=== PATIENT | male | born 1935 | race Caucasian/White ===

== ENCOUNTER 2016-09-26 09:56 | Inpatient (IN) | payer OTHER ==
[~2016-09-26] VITALS: Ht 172.7 cm; Wt 100.0 kg
[2016-09-26] VITALS (14 sets, daily range): BP systolic 106–158; BP diastolic 48–89
[~2016-09-26 09:56] MED LIST: AMIO200T2 PO; APIX5TAB PO; ASPI81TA2 PO; ASPI81TA44 PO; CARV12.52 PO; CARV3.12 PO; CLOP75TA PO; FINA5TAB4 PO; LISI-338 PO; LISI10TA2 PO; MELO-150 PO; MULT-121 PO; OMEG-113 PO; PRAV40TA2 PO; TAMS0.4C2 PO; TRAM50TA PO
--- NOTE | 2016-09-26 12:26 | EKG ---
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 ABNORMAL LEFT AXIS DEVIATION QRS(T) CONTOUR ABNORMALITY CONSISTENT WITH ANTERIOR INFARCT AGE UNDETERMINED CONSISTENT WITH INFERIOR INFARCT PROBABLY OLD ABNORMAL ECG RI6.01 Electronically Signed On 10-03-2016 10:32:01 DRYING ROOM OPERATOR by Sumanth Parra
[2016-09-26] MEDS ORDERED: CARV6.252 PO (12:53)
[2016-09-26 12:55] LABS: BASO # 0.1 x10^3/uL (0.0-0.2); BASO % 1 % (0-3); EOS % 1 % (0-3); LYMPH # 2.1 x10^3/uL (1.0-4.8); LYMPH % 18 % (24-48); MEAN CORPUSCULAR HEMOGLOBIN 31 pg (25-35); MEAN CORPUSCULAR HGB CONC 31 g/dL (31-37); MEAN CORPUSCULAR VOLUME 100 fL (79-100); MONO % 8 % (0-9); NEUT % 73 % (31-73); PLATELET COUNT 281 x10^3/uL (140-400); RED BLOOD COUNT 1.97 x10^6/uL (4.30-5.70); RED CELL DISTRIBUTION WIDTH 17.1 % (11.5-14.5); WHITE BLOOD COUNT 11.6 x10^3/uL (4.0-11.0)
[2016-09-26 13:08] LABS: ALBUMIN 3.1 g/dL (3.4-5.0); ALBUMIN/GLOBULIN RATIO 0.9 (1.0-1.7); CALCIUM 8.9 mg/dL (8.5-10.1); CREATININE 1.5 mg/dL (0.7-1.3); GFR 44.9; POTASSIUM 4.5 mmol/L (3.5-5.1); TOTAL BILIRUBIN 0.5 mg/dL (0.2-1.0); TOTAL PROTEIN 6.5 g/dL (6.4-8.2)
[2016-09-26 13:11] LABS: HEMATOCRIT 19.7 % (39.0-53.0)
[2016-09-26] MEDS ORDERED: OMEP40CA5 PO (13:12)
[2016-09-26] MEDS ORDERED: LEVO50TA5 PO (13:12)
--- NOTE | 2016-09-26 13:44 | HP ---
ADMIT DATE: 09/26/2016 CHIEF COMPLAINT: Anemia and weakness. HISTORY OF PRESENT ILLNESS: An 81-year-old white male with history of coronary artery disease and atrial fibrillation was seen in the office 5 days prior to admission with ongoing weakness over several weeks. He was found to be pale and lab record revealed moderately severe anemia with a hemoglobin around 7.2 and TSH elevated at 18, both of which were new. Aspirin and Eliquis were stopped, lisinopril was stopped and he was started on iron and omeprazole. He was seen in the office on 09/24/2016 with hemoglobin of 6.6, but he declined admission at that time and was seen again on the day of admission with hemoglobin about the same and decided to come to the hospital for transfusion at this point. He has seen some melena over the last 2-3 weeks, but no overt hematochezia, dysphagia, weight loss, vomiting, abdominal pain or other complaints. PAST MEDICAL HISTORY: He had heart stents after [place] in 2012 and he has been on his current meds for an unknown period of time. MEDICATIONS: He takes amiodarone for chronic atrial fibrillation and sees Dr. Brink. PAST SURGICAL HISTORY: Surgically he has had shoulder surgery, appendectomy and tonsillectomy. ALLERGIES: He has no drug allergies. SOCIAL HISTORY: Nonsmoker, nondrinker, not physically active given his age and he is . FAMILY HISTORY: Unremarkable. REVIEW OF SYSTEMS: No other notable complaints. OBJECTIVE: ENT: Moderate pallor, sclerae are clear. TMs and pharynx unremarkable. NECK: Revealed no carotid bruits, nodes, thyroid enlargement or masses. LUNGS: Bibasilar crackles, no wheezes. CARDIOVASCULAR: Regular rate, rate is about 80-90 systolic flow murmur is heard. ABDOMEN: Soft, benign and nontender. EXTREMITIES: No edema, nailbeds and palms pale. Pedal pulses diminished ____ lower blood pressure. ASSESSMENT: 1. Anemia, likely secondary to occult gastrointestinal bleeding worsened by aspirin and Eliquis. He had a negative colonoscopy in 2013, an upper source is likely. 2. Atrial fibrillation, chronic, rate controlled. 3. New diagnosis of hypothyroidism, perhaps related to amiodarone use. 4. Chronic kidney disease 3, stable. PLAN: As ordered. VERENICE BLOOD MD DR: Dmitriy JOB#: [id number] / [id number]
--- NOTE | 2016-09-26 13:51 | PDOC2 ---
GI CONSULT Reason For Consult: Anemia HPI: HPI: Seen w/ Dr. Cardenas. 81 y/o male directly admitted by Dr. Hare. Reports h/ o "feeling bad" w/ dizziness and pallor since 07/30/16. Denies hematochezia but says stools have been firm and black. H/o CAD w/ stents, A Fib on ASA, Plavix, Eliquis. Meds also list omeprazole 40mg QD. Recalls previous colonoscopy 5-6 years ago, no previous EGD. Hgb 6. PMH: PMH: CAD s/p stents, CO/ischemic cardiomyopathy, HTN, HLD, A Fib, CHF, BPH, hypothyroidism FH: Family History: Cancer (lung) Social History: Drugs: None ROS: GEN: Denies fevers, chills, sweats HEENT: Denies blurred vision, sore throat CV: Denies chest pain RESP: Denies shortness of air, cough GI: Per HPI : Denies hematuria, dysuria ENDO: Denies weight changes NEURO: +dizziness MSK: Denies weakness, joint pain/swelling SKIN: +pale VItals: Vitals: Vital Signs Date Time Temp Pulse Resp B/P Pulse Ox O2 Delivery O2 Flow Rate FiO2 09/26/16 11:32 96.8 68 18 112/76 98 Room Air 96.8 Labs: Labs: Laboratory Tests Test 09/26/16 12:25 09/26/16 12:30 White Blood Count 11.6x10^3/uL (4.0-11.0) Red Blood Count 1.97x10^6/uL (4.30-5.70) Hemoglobin 6.0g/dL (13.0-17.5) Hematocrit 19.7% (39.0-53.0) Mean Corpuscular Volume 100fL (79-100) Mean Corpuscular Hemoglobin 31pg (25-35) Mean Corpuscular Hemoglobin Concent 31g/dL (31-37) Red Cell Distribution Width 17.1% (11.5-14.5) Platelet Count 281x10^3/uL (140-400) Neutrophils (%) (Auto) 73% (31-73) Lymphocytes (%) (Auto) 18% (24-48) Monocytes (%) (Auto) 8% (0-9) Eosinophils (%) (Auto) 1% (0-3) Basophils (%) (Auto) 1% (0-3) Neutrophils # (Auto) 8.5x10^3uL (1.8-7.7) Lymphocytes # (Auto) 2.1x10^3/uL (1.0-4.8) Monocytes # (Auto) 0.9x10^3/uL (0.0-1.1) Eosinophils # (Auto) 0.1x10^3/uL (0.0-0.7) Basophils # (Auto) 0.1x10^3/uL (0.0-0.2) Sodium Level 141mmol/L (136-145) Potassium Level 4.5mmol/L (3.5-5.1) Chloride Level 104mmol/L (98-107) Carbon Dioxide Level 26mmol/L (21-32) Anion Gap 11 (6-14) Blood Urea Nitrogen 30mg/dL (8-26) Creatinine 1.5mg/dL (0.7-1.3) Estimated GFR (Cockcroft-Gault) 44.9 BUN/Creatinine Ratio 20 (6-20) Glucose Level 130mg/dL (70-99) Calcium Level 8.9mg/dL (8.5-10.1) Total Bilirubin 0.5mg/dL (0.2-1.0) Aspartate Amino Transf (AST/SGOT) 21U/L (15-37) Alanine Aminotransferase (ALT/SGPT) 24U/L (16-63) Alkaline Phosphatase 37U/L (46-116) Total Protein 6.5g/dL (6.4-8.2) Albumin 3.1g/dL (3.4-5.0) Albumin/Globulin Ratio 0.9 (1.0-1.7) Allergies: Coded Allergies: No Known Drug Allergies (Unverified , 09/26/16) Medications: Please see EMR. Imaging: Imaging: - PE: GEN: NAD, pale HEENT: Atraumatic, PERRL LUNGS: clear anteriorly HEART: S1S2 ABD: NABS, S/ND/NT EXTREMITY: No edema SKIN: No rashes, no jaundice NEURO/PSYCH: A & O 3 A/P: A/P: Anemia -significant cardiac history on blood thinning meds -has felt dizzy, family notes looks pale -having formed black stools -directly admitted today, Hgb 6, transfusion planned CAD, A Fib CRC screen -reports previous colonoscopy 5-6 years ago -- Continue PPI. Okay for diet today but will tentatively plan for EGD and colonoscopy on 09/28 after prep tomorrow. LONG CASTANEDA Sep 26, 2016 13:51
[2016-09-26] MEDS: TRAMADOL 50 MG TABLET. PO SCH ×2 (15:02→21:07)
[2016-09-26] MEDS: CARVEDILOL 6.25 MG TABLET PO SCH (17:00)
--- NOTE | 2016-09-26 20:06 | PDOC2 ---
CONSULT Date of Consult Date of Consult DATE: 09/26/16 TIME: 19:58 Reason for Consult Reason for Consult: Atrial fibrillation Referring Physician Referring Physician: Dr. Hare Identification/Chief Complaint Chief Complaint Anemia History of Present Illness Reason for Visit: This patient is an 81-year-old gentleman that I have seen in the past. He has a known history of coronary artery disease and stents as well as cardiac arrhythmias with chronic atrial fibrillation. He is on anticoagulation with Elliquis. The patient's rhythm has been controlled with amiodarone. He has been feeling very tired fatigue and went to see Dr. Hare and labs were done and he was found to be anemic and to have an elevated TSH of 18. The patient denies any acute bleeding, denies any chest pains, denies any palpitations. Feels weak and tired and becomes short of breath easily. Past Medical History Cardiovascular: AFIB, CAD, HTN, NC, Hyperlipidemia GI: Diverticulosis Social History Drugs: None Current Medications Current Medications Current Medications Amiodarone HCl (Cordarone) 200 mg DAILY PO ; Start 09/27/16 at 09:00 Carvedilol (Coreg) 6.25 mg BIDWMEALS PO ; Start 09/26/16 at 17:00 Finasteride (Proscar) 5 mg DAILY PO ; Start 09/27/16 at 09:00 Tamsulosin HCl (Flomax) 0.4 mg HS PO ; Start 09/26/16 at 21:00 Tramadol HCl (Ultram) 50 mg TID PO Last administered on 09/26/16t 15:02; Start 09/26/16 at 14:00 Multivitamins/ Calcium (Thera M Plus) 1 tab DAILY PO ; Start 09/27/16 at 09:00 Fish Oil (Fish Oil) 1,000 mg DAILY PO ; Start 09/27/16 at 09:00 Atorvastatin Calcium (Lipitor) 10 mg QHS PO ; Start 09/26/16 at 21:00 Levothyroxine Sodium (Synthroid) 50 mcg DAILY07 PO ; Start 09/27/16 at 07:00 Pantoprazole Sodium (Protonix) 40 mg DAILYAC PO ; Start 09/27/16 at 07:30 Active Scripts Active Clopidogrel (Clopidogrel Bisulfate) 75 Mg Tablet 75 Mg PO DAILYWBKFT 30 Days Carvedilol 12.5 Mg Tablet 12.5 Mg PO BIDWMEALS 30 Days Reported Levothyroxine Sodium 50 Mcg Tablet 1 Tab PO DAILY Omeprazole 40 Mg Capsule. 1 Cap PO DAILY Carvedilol 6.25 Mg Tablet 1 Tab PO BID Fish Oil 1,200 mg Softgel ([place]-3S/Dha/Epa/Fish Oil) 1 Each Capsule 1 Each PO DAILY Eliquis (Apixaban) 5 Mg Tablet 5 Mg PO BID Amiodarone Hcl 200 Mg Tablet 1 Tab PO DAILY Lisinopril 5 Mg Tablet 1 Tab PO DAILY Multiple Vitamins (Multivitamin) 1 Each Tablet 1 Each PO DAILY Tamsulosin Hcl 0.4 Mg Cap.er.24h 1 Cap PO HS Tramadol Hcl 50 Mg Tablet 1 Tab PO TID Finasteride 5 Mg Tablet 1 Tab PO DAILY Pravastatin Sodium 40 Mg Tablet 1 Tab PO QHS Children's Aspirin (Aspirin) 81 Mg Tab.chew 81 Mg PO Allergies Allergies: Coded Allergies: No Known Drug Allergies (Unverified , 09/26/16) Physical Exam Physical Exam The patient was not in acute distress at the time of the examination. He was receiving a unit of blood at this time. H EENT pupils are reactive. Oral mucosa well-hydrated. Neck is supple no JVD. Lungs are clear. Heart irregular, S1, S2, 1 to 2/6 systolic murmur. Abdomen is soft bowel sounds are present. Extremities no edema. Vitals VITALS Vital Signs Date Time Temp Pulse Resp B/P Pulse Ox O2 Delivery O2 Flow Rate FiO2 09/26/16 19:02 97.9 70 20 118/65 97.9 09/26/16 19:00 97 Room Air Labs Labs Laboratory Tests Test 09/26/16 12:25 09/26/16 12:30 White Blood Count 11.6x10^3/uL (4.0-11.0) Red Blood Count 1.97x10^6/uL (4.30-5.70) Hemoglobin 6.0g/dL (13.0-17.5) Hematocrit 19.7% (39.0-53.0) Mean Corpuscular Volume 100fL (79-100) Mean Corpuscular Hemoglobin 31pg (25-35) Mean Corpuscular Hemoglobin Concent 31g/dL (31-37) Red Cell Distribution Width 17.1% (11.5-14.5) Platelet Count 281x10^3/uL (140-400) Neutrophils (%) (Auto) 73% (31-73) Lymphocytes (%) (Auto) 18% (24-48) Monocytes (%) (Auto) 8% (0-9) Eosinophils (%) (Auto) 1% (0-3) Basophils (%) (Auto) 1% (0-3) Neutrophils # (Auto) 8.5x10^3uL (1.8-7.7) Lymphocytes # (Auto) 2.1x10^3/uL (1.0-4.8) Monocytes # (Auto) 0.9x10^3/uL (0.0-1.1) Eosinophils # (Auto) 0.1x10^3/uL (0.0-0.7) Basophils # (Auto) 0.1x10^3/uL (0.0-0.2) Sodium Level 141mmol/L (136-145) Potassium Level 4.5mmol/L (3.5-5.1) Chloride Level 104mmol/L (98-107) Carbon Dioxide Level 26mmol/L (21-32) Anion Gap 11 (6-14) Blood Urea Nitrogen 30mg/dL (8-26) Creatinine 1.5mg/dL (0.7-1.3) Estimated GFR (Cockcroft-Gault) 44.9 BUN/Creatinine Ratio 20 (6-20) Glucose Level 130mg/dL (70-99) Calcium Level 8.9mg/dL (8.5-10.1) Total Bilirubin 0.5mg/dL (0.2-1.0) Aspartate Amino Transf (AST/SGOT) 21U/L (15-37) Alanine Aminotransferase (ALT/SGPT) 24U/L (16-63) Alkaline Phosphatase 37U/L (46-116) Total Protein 6.5g/dL (6.4-8.2) Albumin 3.1g/dL (3.4-5.0) Albumin/Globulin Ratio 0.9 (1.0-1.7) Laboratory Tests Test 09/26/16 12:25 09/26/16 12:30 White Blood Count 11.6x10^3/uL (4.0-11.0) Red Blood Count 1.97x10^6/uL (4.30-5.70) Hemoglobin 6.0g/dL (13.0-17.5) Hematocrit 19.7% (39.0-53.0) Mean Corpuscular Volume 100fL (79-100) Mean Corpuscular Hemoglobin 31pg (25-35) Mean Corpuscular Hemoglobin Concent 31g/dL (31-37) Red Cell Distribution Width 17.1% (11.5-14.5) Platelet Count 281x10^3/uL (140-400) Neutrophils (%) (Auto) 73% (31-73) Lymphocytes (%) (Auto) 18% (24-48) Monocytes (%) (Auto) 8% (0-9) Eosinophils (%) (Auto) 1% (0-3) Basophils (%) (Auto) 1% (0-3) Neutrophils # (Auto) 8.5x10^3uL (1.8-7.7) Lymphocytes # (Auto) 2.1x10^3/uL (1.0-4.8) Monocytes # (Auto) 0.9x10^3/uL (0.0-1.1) Eosinophils # (Auto) 0.1x10^3/uL (0.0-0.7) Basophils # (Auto) 0.1x10^3/uL (0.0-0.2) Sodium Level 141mmol/L (136-145) Potassium Level 4.5mmol/L (3.5-5.1) Chloride Level 104mmol/L (98-107) Carbon Dioxide Level 26mmol/L (21-32) Anion Gap 11 (6-14) Blood Urea Nitrogen 30mg/dL (8-26) Creatinine 1.5mg/dL (0.7-1.3) Estimated GFR (Cockcroft-Gault) 44.9 BUN/Creatinine Ratio 20 (6-20) Glucose Level 130mg/dL (70-99) Calcium Level 8.9mg/dL (8.5-10.1) Total Bilirubin 0.5mg/dL (0.2-1.0) Aspartate Amino Transf (AST/SGOT) 21U/L (15-37) Alanine Aminotransferase (ALT/SGPT) 24U/L (16-63) Alkaline Phosphatase 37U/L (46-116) Total Protein 6.5g/dL (6.4-8.2) Albumin 3.1g/dL (3.4-5.0) Albumin/Globulin Ratio 0.9 (1.0-1.7) Assessment/Plan Assessment/Plan This patient comes in with symptoms that are probably secondary to the anemia and may be having a GI bleed. The TSH is elevated and he is on amiodarone therefore at this point I would like to DC the amiodarone and if there are issues with regards to the heart rhythm then we would use something different trying to avoid problems with the thyroid and the amiodarone. Thank you very much for asking me to participate in the care of this patient CARLOS ALBERTO MONTILLA MD Sep 26, 2016 20:06
[2016-09-26] MEDS: ATORVASTATIN CALCIUM 10 MG TABLET. PO SCH (21:06)
[2016-09-26] MEDS: TAMSULOSIN 0.4 MG CAP.ER.24H. PO SCH (21:07)
[2016-09-27 03:11] VITALS: BP 121/69
[2016-09-27 05:13] LABS: BASO # 0.1 x10^3/uL (0.0-0.2); BASO % 1 % (0-3); EOS % 1 % (0-3); HEMATOCRIT 24.4 % (39.0-53.0); HEMOGLOBIN 7.8 g/dL (13.0-17.5); LYMPH % 16 % (24-48); MEAN CORPUSCULAR HEMOGLOBIN 31 pg (25-35); MEAN CORPUSCULAR HGB CONC 32 g/dL (31-37); MEAN CORPUSCULAR VOLUME 96 fL (79-100); MONO % 10 % (0-9); NEUT % 73 % (31-73); PLATELET COUNT 233 x10^3/uL (140-400); RED BLOOD COUNT 2.55 x10^6/uL (4.30-5.70); RED CELL DISTRIBUTION WIDTH 15.8 % (11.5-14.5); WHITE BLOOD COUNT 12.4 x10^3/uL (4.0-11.0)
[2016-09-27] MEDS: LEVOTHYROXINE 50 MCG TABLET PO SCH (06:13)
[2016-09-27 07:00] VITALS: BP 125/70
--- NOTE | 2016-09-27 08:14 | PDOC ---
Provider Note Provider Note feels better w/ hb up 7.8- exam same,,rest of lab ok- will resume lisinopril re CM, follow hb bid, more prbcs if lower, panendo 3/- off amio now re thyroid status , TSH later- continue omepp pending VERENICE Javier MD Sep 27, 2016 08:14
[2016-09-27] MEDS ORDERED: AMIODARONE HCL 200 MG TABLET PO SCH (09:00)
--- NOTE | 2016-09-27 10:02 | PDOC ---
Subjective: Subjective: Feeling better after transfusion but was up urinating a lot during the night. Objective: Vital Signs: Vital Signs Date Time Temp Pulse Resp B/P Pulse Ox O2 Delivery O2 Flow Rate FiO2 09/27/16 09:10 Room Air 09/27/16 07:00 98.6 75 20 125/70 97 98.6 Labs: Laboratory Tests Test 09/26/16 12:25 09/26/16 12:30 09/27/16 04:30 White Blood Count 11.6x10^3/uL 12.4x10^3/uL Red Blood Count 1.97x10^6/uL 2.55x10^6/uL Hemoglobin 6.0g/dL 7.8g/dL Hematocrit 19.7% 24.4% Mean Corpuscular Volume 100fL 96fL Mean Corpuscular Hemoglobin 31pg 31pg Mean Corpuscular Hemoglobin Concent 31g/dL 32g/dL Red Cell Distribution Width 17.1% 15.8% Platelet Count 281x10^3/uL 233x10^3/uL Neutrophils (%) (Auto) 73% 73% Lymphocytes (%) (Auto) 18% 16% Monocytes (%) (Auto) 8% 10% Eosinophils (%) (Auto) 1% 1% Basophils (%) (Auto) 1% 1% Neutrophils # (Auto) 8.5x10^3uL 9.0x10^3uL Lymphocytes # (Auto) 2.1x10^3/uL 2.0x10^3/uL Monocytes # (Auto) 0.9x10^3/uL 1.2x10^3/uL Eosinophils # (Auto) 0.1x10^3/uL 0.1x10^3/uL Basophils # (Auto) 0.1x10^3/uL 0.1x10^3/uL Sodium Level 141mmol/L Potassium Level 4.5mmol/L Chloride Level 104mmol/L Carbon Dioxide Level 26mmol/L Anion Gap 11 Blood Urea Nitrogen 30mg/dL Creatinine 1.5mg/dL Estimated GFR (Cockcroft-Gault) 44.9 BUN/Creatinine Ratio 20 Glucose Level 130mg/dL Calcium Level 8.9mg/dL Total Bilirubin 0.5mg/dL Aspartate Amino Transf (AST/SGOT) 21U/L Alanine Aminotransferase (ALT/SGPT) 24U/L Alkaline Phosphatase 37U/L Total Protein 6.5g/dL Albumin 3.1g/dL Albumin/Globulin Ratio 0.9 Thyroid Stimulating Hormone (TSH) 13.090uIU/mL Free Triiodothyronine (T3) pg/mL 1.56pg/mL PE: GEN: NAD LUNGS: clear anteriorly HEART: RRR ABD: NABS, S/ND/NT NEURO/PSYCH: A & O 3 A/P: Anemia -h/o CAD, A Fib previously on blood thinners -Hgb 7.8 from6 s/p transfusions -previous colonoscopy 5-6 years ago -- Proceed w/ EGG and colonoscopy tomorrow a.m. after prep. Clear liquids today, NPO at midnight. LONG CASTANEDA Sep 27, 2016 10:02
[2016-09-27] MEDS: PANTOPRAZOLE 40 MG TABLET. PO SCH (10:06)
[2016-09-27] MEDS: OMEGA-3 FATTY ACIDS/FISH OIL 1,000 MG CAPSULE. PO SCH (10:06)
[2016-09-27] MEDS: MULTIVITAMIN with MINERAL TABLET. PO SCH (10:06)
[2016-09-27] MEDS: FINASTERIDE 5 MG TABLET PO SCH (10:06)
[2016-09-27] MEDS: TRAMADOL 50 MG TABLET. PO SCH ×3 (10:07→20:32)
[2016-09-27] MEDS: LISINOPRIL 10 MG TABLET PO SCH (10:09)
[2016-09-27] MEDS: CARVEDILOL 6.25 MG TABLET PO SCH ×2 (10:10→17:45)
[2016-09-27] MEDS ORDERED: PEG 3350/NA SULF,BICARB,CL/KCL 4,000 ML SOLUTION. PO ONE (10:30)
[2016-09-27 10:51] VITALS: BP 107/60
--- NOTE | 2016-09-27 10:58 | PDOC ---
PROGRESS NOTES Subjective Subjective The patient is feeling better today. He received 2 units of blood yesterday and says he is now less tired and less short of breath. He is also denying chest pain or other cardiac-related complaints. Objective Objective Vital Signs Date Time Temp Pulse Resp B/P Pulse Ox O2 Delivery O2 Flow Rate FiO2 09/27/16 10:10 71 109/60 09/27/16 10:07 20 97 Room Air 09/27/16 07:00 98.6 98.6 Intake and Output 09/27/16 07:00 Intake Total 1935 ml Balance 1935 ml Intake Oral 900 ml Blood Product IV Normal Saline Flush 1035 ml # Voids 2 Physical Exam Physical Exam No change from previous cardiovascular exam. Lungs: Clear to auscultation Assessment Assessment Problems Medical Problems: (1) Anemia Status: Acute Plan Plan of Care Patient will undergo colonoscopy and EGD later today. Recommend continuing to hold Amiodarone and hold Eliquis. No cardiac complaints at this time, but will continue to follow in care, especially for management of chronic A-Fib. Comment Review of Relevant I have reviewed the following items joana (where applicable) has been applied. Labs Laboratory Tests Test 09/26/16 12:25 09/26/16 12:30 09/27/16 04:30 White Blood Count 11.6x10^3/uL (4.0-11.0) 12.4x10^3/uL (4.0-11.0) Red Blood Count 1.97x10^6/uL (4.30-5.70) 2.55x10^6/uL (4.30-5.70) Hemoglobin 6.0g/dL (13.0-17.5) 7.8g/dL (13.0-17.5) Hematocrit 19.7% (39.0-53.0) 24.4% (39.0-53.0) Mean Corpuscular Volume 100fL (79-100) 96fL (79-100) Mean Corpuscular Hemoglobin 31pg (25-35) 31pg (25-35) Mean Corpuscular Hemoglobin Concent 31g/dL (31-37) 32g/dL (31-37) Red Cell Distribution Width 17.1% (11.5-14.5) 15.8% (11.5-14.5) Platelet Count 281x10^3/uL (140-400) 233x10^3/uL (140-400) Neutrophils (%) (Auto) 73% (31-73) 73% (31-73) Lymphocytes (%) (Auto) 18% (24-48) 16% (24-48) Monocytes (%) (Auto) 8% (0-9) 10% (0-9) Eosinophils (%) (Auto) 1% (0-3) 1% (0-3) Basophils (%) (Auto) 1% (0-3) 1% (0-3) Neutrophils # (Auto) 8.5x10^3uL (1.8-7.7) 9.0x10^3uL (1.8-7.7) Lymphocytes # (Auto) 2.1x10^3/uL (1.0-4.8) 2.0x10^3/uL (1.0-4.8) Monocytes # (Auto) 0.9x10^3/uL (0.0-1.1) 1.2x10^3/uL (0.0-1.1) Eosinophils # (Auto) 0.1x10^3/uL (0.0-0.7) 0.1x10^3/uL (0.0-0.7) Basophils # (Auto) 0.1x10^3/uL (0.0-0.2) 0.1x10^3/uL (0.0-0.2) Sodium Level 141mmol/L (136-145) Potassium Level 4.5mmol/L (3.5-5.1) Chloride Level 104mmol/L (98-107) Carbon Dioxide Level 26mmol/L (21-32) Anion Gap 11 (6-14) Blood Urea Nitrogen 30mg/dL (8-26) Creatinine 1.5mg/dL (0.7-1.3) Estimated GFR (Cockcroft-Gault) 44.9 BUN/Creatinine Ratio 20 (6-20) Glucose Level 130mg/dL (70-99) Calcium Level 8.9mg/dL (8.5-10.1) Total Bilirubin 0.5mg/dL (0.2-1.0) Aspartate Amino Transf (AST/SGOT) 21U/L (15-37) Alanine Aminotransferase (ALT/SGPT) 24U/L (16-63) Alkaline Phosphatase 37U/L (46-116) Total Protein 6.5g/dL (6.4-8.2) Albumin 3.1g/dL (3.4-5.0) Albumin/Globulin Ratio 0.9 (1.0-1.7) Thyroid Stimulating Hormone (TSH) 13.090uIU/mL (0.358-3.74) Free Triiodothyronine (T3) pg/mL 1.56pg/mL (2.18-3.98) Laboratory Tests Test 09/26/16 12:25 09/26/16 12:30 09/27/16 04:30 White Blood Count 11.6x10^3/uL (4.0-11.0) 12.4x10^3/uL (4.0-11.0) Red Blood Count 1.97x10^6/uL (4.30-5.70) 2.55x10^6/uL (4.30-5.70) Hemoglobin 6.0g/dL (13.0-17.5) 7.8g/dL (13.0-17.5) Hematocrit 19.7% (39.0-53.0) 24.4% (39.0-53.0) Mean Corpuscular Volume 100fL (79-100) 96fL (79-100) Mean Corpuscular Hemoglobin 31pg (25-35) 31pg (25-35) Mean Corpuscular Hemoglobin Concent 31g/dL (31-37) 32g/dL (31-37) Red Cell Distribution Width 17.1% (11.5-14.5) 15.8% (11.5-14.5) Platelet Count 281x10^3/uL (140-400) 233x10^3/uL (140-400) Neutrophils (%) (Auto) 73% (31-73) 73% (31-73) Lymphocytes (%) (Auto) 18% (24-48) 16% (24-48) Monocytes (%) (Auto) 8% (0-9) 10% (0-9) Eosinophils (%) (Auto) 1% (0-3) 1% (0-3) Basophils (%) (Auto) 1% (0-3) 1% (0-3) Neutrophils # (Auto) 8.5x10^3uL (1.8-7.7) 9.0x10^3uL (1.8-7.7) Lymphocytes # (Auto) 2.1x10^3/uL (1.0-4.8) 2.0x10^3/uL (1.0-4.8) Monocytes # (Auto) 0.9x10^3/uL (0.0-1.1) 1.2x10^3/uL (0.0-1.1) Eosinophils # (Auto) 0.1x10^3/uL (0.0-0.7) 0.1x10^3/uL (0.0-0.7) Basophils # (Auto) 0.1x10^3/uL (0.0-0.2) 0.1x10^3/uL (0.0-0.2) Sodium Level 141mmol/L (136-145) Potassium Level 4.5mmol/L (3.5-5.1) Chloride Level 104mmol/L (98-107) Carbon Dioxide Level 26mmol/L (21-32) Anion Gap 11 (6-14) Blood Urea Nitrogen 30mg/dL (8-26) Creatinine 1.5mg/dL (0.7-1.3) Estimated GFR (Cockcroft-Gault) 44.9 BUN/Creatinine Ratio 20 (6-20) Glucose Level 130mg/dL (70-99) Calcium Level 8.9mg/dL (8.5-10.1) Total Bilirubin 0.5mg/dL (0.2-1.0) Aspartate Amino Transf (AST/SGOT) 21U/L (15-37) Alanine Aminotransferase (ALT/SGPT) 24U/L (16-63) Alkaline Phosphatase 37U/L (46-116) Total Protein 6.5g/dL (6.4-8.2) Albumin 3.1g/dL (3.4-5.0) Albumin/Globulin Ratio 0.9 (1.0-1.7) Thyroid Stimulating Hormone (TSH) 13.090uIU/mL (0.358-3.74) Free Triiodothyronine (T3) pg/mL 1.56pg/mL (2.18-3.98) Medications Current Medications Amiodarone HCl (Cordarone) 200 mg DAILY PO ; Start 09/27/16 at 09:00; Stop 09/27 at 09:00; Status DC Carvedilol (Coreg) 6.25 mg BIDWMEALS PO Last administered on 09/27/16 10:10; Start 09/26/16 at 17:00 Finasteride (Proscar) 5 mg DAILY PO Last administered on 09/27/16 10:06; Start 09/27/16 at 09:00 Tamsulosin HCl (Flomax) 0.4 mg HS PO Last administered on 09/26/16 21:07; Start 09/26/16 at 21:00 Tramadol HCl (Ultram) 50 mg TID PO Last administered on 09/27/16 10:07; Start 09/26/16 at 14:00 Multivitamins/ Calcium (Thera M Plus) 1 tab DAILY PO Last administered on 10:06; Start 09/27/16 at 09:00 Fish Oil (Fish Oil) 1,000 mg DAILY PO Last administered on 09/27/16 10:06; Start 09/27/16 at 09:00 Atorvastatin Calcium (Lipitor) 10 mg QHS PO Last administered on 09/26/16 21: 06; Start 09/26/16 at 21:00 Levothyroxine Sodium (Synthroid) 50 mcg DAILY07 PO Last administered on 06:13; Start 09/27/16 at 07:00 Pantoprazole Sodium (Protonix) 40 mg DAILYAC PO Last administered on 09/27/16 10:06; Start 09/27/16 at 07:30 Lisinopril (Prinivil) 10 mg DAILY PO Last administered on 09/27/16 10:09; Start 09/27/16 at 09:00 Sodium Cl/Sod Bicarb/Potass Cl/ PEG (Golytely) 4,000 ml 1X ONCE PO ; Start at 10:30; Stop 09/27/16 at 10:31; Status DC Active Scripts Active Clopidogrel (Clopidogrel Bisulfate) 75 Mg Tablet 75 Mg PO DAILYWBKFT 30 Days Carvedilol 12.5 Mg Tablet 12.5 Mg PO BIDWMEALS 30 Days Reported Levothyroxine Sodium 50 Mcg Tablet 1 Tab PO DAILY Omeprazole 40 Mg Capsule. 1 Cap PO DAILY Carvedilol 6.25 Mg Tablet 1 Tab PO BID Fish Oil 1,200 mg Softgel (Florien-3S/Dha/Epa/Fish Oil) 1 Each Capsule 1 Each PO DAILY Eliquis (Apixaban) 5 Mg Tablet 5 Mg PO BID Amiodarone Hcl 200 Mg Tablet 1 Tab PO DAILY Lisinopril 5 Mg Tablet 1 Tab PO DAILY Multiple Vitamins (Multivitamin) 1 Each Tablet 1 Each PO DAILY Tamsulosin Hcl 0.4 Mg Cap.er.24h 1 Cap PO HS Tramadol Hcl 50 Mg Tablet 1 Tab PO TID Finasteride 5 Mg Tablet 1 Tab PO DAILY Pravastatin Sodium 40 Mg Tablet 1 Tab PO QHS Children's Aspirin (Aspirin) 81 Mg Tab.chew 81 Mg PO Vitals/I & O Vital Sign - Last 24 Hours 09/26/16 09/26/16 09/26/16 09/26/16 11:32 15:00 15:02 16:10 Temp 96.8 97.7 98.6 96.8 97.7 98.6 Pulse 68 65 66 Resp 18 18 B/P 112/76 113/59 106/48 Pulse Ox 98 97 98 O2 Delivery Room Air Room Air Room Air 09/26/16 09/26/16 09/26/16 09/26/16 16:38 17:25 18:25 19:00 Temp 98.1 98.1 97.9 98.1 98.1 98.1 97.9 98.1 Pulse 65 72 68 71 Resp 18 18 B/P 122/62 139/71 126/70 112/62 Pulse Ox 97 O2 Delivery Room Air 09/26/16 09/26/16 09/26/16 09/26/16 19:02 20:00 20:05 20:30 Temp 97.9 97.9 97.9 97.9 97.9 97.9 Pulse 70 70 73 Resp 20 18 18 B/P 118/65 118/65 129/69 O2 Delivery Room Air 09/26/16 09/26/16 09/26/16 09/26/16 20:45 21:07 21:45 22:07 Temp 98.2 98.0 98.2 98.0 Pulse 74 70 Resp 18 18 18 B/P 118/64 108/64 Pulse Ox 97 97 O2 Delivery Room Air 09/26/16 09/26/16 09/27/16 09/27/16 22:31 22:51 03:11 07:00 Temp 97.7 98.0 98.1 98.6 97.7 98.0 98.1 98.6 Pulse 70 74 70 75 Resp 18 18 18 20 B/P 158/89 128/74 121/69 125/70 Pulse Ox 97 95 97 O2 Delivery Room Air Room Air Room Air 09/27/16 09/27/16 09/27/16 09/27/16 09:10 10:07 10:09 10:10 Pulse 71 71 Resp 20 B/P 109/60 109/60 Pulse Ox 97 O2 Delivery Room Air Room Air Intake and Output 09/26/16 09/26/16 09/27/16 15:00 23:00 07:00 Intake Total 1035 ml 900 ml Balance 1035 ml 900 ml CARLOS ALBERTO MONTILLA MD Sep 27, 2016 10:58
[2016-09-27 11:42] LABS: NEG OBC FOB NEG; POS OBC FOB POS
[2016-09-27 15:05] VITALS: BP 103/57
[2016-09-27 17:16] LABS: HEMATOCRIT 27.4 % (39.0-53.0); HEMOGLOBIN 8.6 g/dL (13.0-17.5); RED BLOOD COUNT 2.84 x10^6/uL (4.30-5.70); RED CELL DISTRIBUTION WIDTH 16.5 % (11.5-14.5)
[2016-09-27 19:00] VITALS: BP 114/62
[2016-09-27] MEDS: ATORVASTATIN CALCIUM 10 MG TABLET. PO SCH (20:32)
[2016-09-27] MEDS: TAMSULOSIN 0.4 MG CAP.ER.24H. PO SCH (20:32)
[2016-09-27 23:00] VITALS: BP 118/56
[2016-09-28] VITALS (10 sets, daily range): BP systolic 96–130; BP diastolic 53–69
[2016-09-28] MEDS: LEVOTHYROXINE 50 MCG TABLET PO SCH (05:41)
[2016-09-28 05:43] LABS: HEMOGLOBIN 7.3 g/dL (13.0-17.5); RED BLOOD COUNT 2.39 x10^6/uL (4.30-5.70); RED CELL DISTRIBUTION WIDTH 18.2 % (11.5-14.5)
[2016-09-28] MEDS ORDERED: LIDOCAINE 2% PF Vial for OR 5 ML VIAL. ONE (06:55)
[2016-09-28] MEDS ORDERED: PROPOFOL 20 ML IV ONE (06:55)
[2016-09-28] MEDS ORDERED: IV RINGERS,LACTATED 1000ML 1,000 ML IV SCH (07:00)
[2016-09-28] MEDS ORDERED: LIDOCAINE 1% 1 ML SYRINGE. ID PRN (07:00)
[2016-09-28] MEDS ORDERED: PROCHLORPERAZINE 10 MG/2 ML VIAL. IV PRN (07:00)
[2016-09-28] MEDS ORDERED: FENTANYL PF 100 MCG/2 ML VIAL. IV PRN ×2 (07:00)
[2016-09-28] MEDS ORDERED: MORPHINE SULFATE 2 MG/ML DISP.SYRIN. IV PRN (07:00)
[2016-09-28] MEDS ORDERED: ONDANSETRON PF 4 MG/2 ML VIAL. IV PRN (07:00)
[2016-09-28] MEDS ORDERED: HYDROMORPHONE 2 MG/ML VIAL. IV PRN (07:00)
--- NOTE | 2016-09-28 07:45 | PDOC ---
Provider Note Provider Note vss, no new sxs- hb down from 8.6 to 7.3, will give 1 more unit - tolerating acei- management based on endo findings VERENICE BLOOD MD Sep 28, 2016 07:45
[2016-09-28] MEDS: CARVEDILOL 6.25 MG TABLET PO SCH ×2 (08:00→18:10)
[2016-09-28] MEDS: LISINOPRIL 10 MG TABLET PO SCH (09:00)
[2016-09-28] MEDS: TRAMADOL 50 MG TABLET. PO SCH ×3 (09:00→21:28)
--- NOTE | 2016-09-28 09:30 | PDOC4 ---
Operative Note Operative Note EGD/Colonoscopy Meds propofol per anesthesia Pre-op dx acute blood loss anemia post-op dx non-erosive gastritis internal hemorrhoids sigmoid/descending colon diverticulosis retained blood cecum without obvious source Plan serial cbcs bleeding scan to further assess SÁNCHEZ CABRERA MD Sep 28, 2016 09:30
[2016-09-28] MEDS ORDERED: GLYCOPYRROLATE 1 MG/5 ML VIAL. ONE (12:00)
[2016-09-28] MEDS ORDERED: CONTRAST GIVEN MC PRN (14:00)
[2016-09-28] MEDS ORDERED: IOHEXOL 350 MG/ML 100ML VIAL. IV ONE (14:00)
[2016-09-28] MEDS ORDERED: SODIUM BICARBONATE VIAL 150 MEQ in IV STERILE WATER 1,000 ML IV SCH (14:30)
--- NOTE | 2016-09-28 14:31 | PDOC ---
PROGRESS NOTES Subjective Subjective Patient off floor for nuclear medicine scan to be followed by IR procedure. Discussed studies performed today with and daughter. Objective Objective Vital Signs Date Time Temp Pulse Resp B/P Pulse Ox O2 Delivery O2 Flow Rate FiO2 09/28/16 09:55 66 20 107/62 96 Room Air 09/28/16 09:27 97.3 97.3 Intake and Output 09/28/16 07:00 Intake Total 990 ml Output Total 3 ml Balance 987 ml Intake Oral 990 ml Output Urine Total 3 ml # Voids 3 # Bowel Movements 8 Assessment Assessment Pt stable cardiac palomares. Agree with present plan Problems Medical Problems: (1) Anemia Status: Acute Plan Plan of Care Recommend to DC the Amiodarone and Eliquis Will continue to follow Comment Review of Relevant I have reviewed the following items joana (where applicable) has been applied. Labs Laboratory Tests Test 09/27/16 04:30 09/27/16 11:00 09/27/16 16:45 09/28/16 05:05 White Blood Count 12.4x10^3/uL (4.0-11.0) 13.0x10^3/uL (4.0-11.0) 9.0x10^3/uL (4.0-11.0) Red Blood Count 2.55x10^6/uL (4.30-5.70) 2.84x10^6/uL (4.30-5.70) 2.39x10^6/uL (4.30-5.70) Hemoglobin 7.8g/dL (13.0-17.5) 8.6g/dL (13.0-17.5) 7.3g/dL (13.0-17.5) Hematocrit 24.4% (39.0-53.0) 27.4% (39.0-53.0) 23.0% (39.0-53.0) Mean Corpuscular Volume 96fL (79-100) 97fL (79-100) 96fL (79-100) Mean Corpuscular Hemoglobin 31pg (25-35) 30pg (25-35) 31pg (25-35) Mean Corpuscular Hemoglobin Concent 32g/dL (31-37) 32g/dL (31-37) 32g/dL (31-37) Red Cell Distribution Width 15.8% (11.5-14.5) 16.5% (11.5-14.5) 18.2% (11.5-14.5) Platelet Count 233x10^3/uL (140-400) 249x10^3/uL (140-400) 198x10^3/uL (140-400) Neutrophils (%) (Auto) 73% (31-73) Lymphocytes (%) (Auto) 16% (24-48) Monocytes (%) (Auto) 10% (0-9) Eosinophils (%) (Auto) 1% (0-3) Basophils (%) (Auto) 1% (0-3) Neutrophils # (Auto) 9.0x10^3uL (1.8-7.7) Lymphocytes # (Auto) 2.0x10^3/uL (1.0-4.8) Monocytes # (Auto) 1.2x10^3/uL (0.0-1.1) Eosinophils # (Auto) 0.1x10^3/uL (0.0-0.7) Basophils # (Auto) 0.1x10^3/uL (0.0-0.2) Thyroid Stimulating Hormone (TSH) 13.090uIU/mL (0.358-3.74) Thyroxine (T4) 6.2ug/dL (4.5-12.0) Free Triiodothyronine (T3) pg/mL 1.56pg/mL (2.18-3.98) Stool Occult Blood Negative (NEG) Laboratory Tests Test 09/27/16 16:45 09/28/16 05:05 White Blood Count 13.0x10^3/uL (4.0-11.0) 9.0x10^3/uL (4.0-11.0) Red Blood Count 2.84x10^6/uL (4.30-5.70) 2.39x10^6/uL (4.30-5.70) Hemoglobin 8.6g/dL (13.0-17.5) 7.3g/dL (13.0-17.5) Hematocrit 27.4% (39.0-53.0) 23.0% (39.0-53.0) Mean Corpuscular Volume 97fL (79-100) 96fL (79-100) Mean Corpuscular Hemoglobin 30pg (25-35) 31pg (25-35) Mean Corpuscular Hemoglobin Concent 32g/dL (31-37) 32g/dL (31-37) Red Cell Distribution Width 16.5% (11.5-14.5) 18.2% (11.5-14.5) Platelet Count 249x10^3/uL (140-400) 198x10^3/uL (140-400) Medications Current Medications Amiodarone HCl (Cordarone) 200 mg DAILY PO ; Start 09/27/16 at 09:00; Stop 09/27 at 09:00; Status DC Carvedilol (Coreg) 6.25 mg BIDWMEALS PO Last administered on 09/27/16 17:45; Start 09/26/16 at 17:00 Finasteride (Proscar) 5 mg DAILY PO Last administered on 09/27/16 10:06; Start 09/27/16 at 09:00 Tamsulosin HCl (Flomax) 0.4 mg HS PO Last administered on 09/27/16 20:32; Start 09/26/16 at 21:00 Tramadol HCl (Ultram) 50 mg TID PO Last administered on 09/27/16 20:32; Start 09/26/16 at 14:00 Multivitamins/ Calcium (Thera M Plus) 1 tab DAILY PO Last administered on 10:06; Start 09/27/16 at 09:00 Fish Oil (Fish Oil) 1,000 mg DAILY PO Last administered on 09/27/16 10:06; Start 09/27/16 at 09:00 Atorvastatin Calcium (Lipitor) 10 mg QHS PO Last administered on 09/27/16 20: 32; Start 09/26/16 at 21:00 Levothyroxine Sodium (Synthroid) 50 mcg DAILY07 PO Last administered on 05:41; Start 09/27/16 at 07:00 Pantoprazole Sodium (Protonix) 40 mg DAILYAC PO Last administered on 09/27/16 10:06; Start 09/27/16 at 07:30 Lisinopril (Prinivil) 10 mg DAILY PO Last administered on 09/27/16 10:09; Start 09/27/16 at 09:00 Sodium Cl/Sod Bicarb/Potass Cl/ PEG (Golytely) 4,000 ml 1X ONCE PO Last administered on 09/27/16 12:57; Start 09/27/16 at 10:30; Stop 09/27/16 at 10:31 ; Status DC Ondansetron HCl (Zofran) 4 mg PRN Q6HRS PRN IV Nausea; Start 09/28/16 at 07:00; Stop 09/29/16 at 06:59 Fentanyl Citrate (Fentanyl 2ml Vial) 25 mcg PRN Q5MIN PRN IV MILD PAIN; Start 09/28/16 at 07:00; Stop 09/29/16 at 06:59 Fentanyl Citrate (Fentanyl 2ml Vial) 50 mcg PRN Q5MIN PRN IV MODERATE PAIN; Start 09/28/16 at 07:00; Stop 09/29/16 at 06:59 Morphine Sulfate 1 mg 1 mg PRN Q10MIN PRN IV SEVERE PAIN; Start 09/28/16 at 07: 00; Stop 09/29/16 at 06:59 Lactated Ringer's (Iv Lactated Ringers) 1,000 ml @ 0 mls/hr Q0M IV Last administered on 09/28/16 08:26; Start 09/28/16 at 07:00; Stop 09/28/16 at 18:59 Lidocaine HCl 2 ml 1X PRN PRN ID IV START; Start 09/28/16 at 07:00; Stop at 06:59 Hydromorphone HCl (Dilaudid) 0.5 mg PRN Q10MIN PRN IV SEVERE PAIN, Second choice; Start 09/28/16 at 07:00; Stop 09/29/16 at 06:59 Prochlorperazine Edisylate 5 mg 5 mg PACU PRN PRN IV NAUSEA; Start 09/28/16 at 07:00; Stop 09/29/16 at 06:59 Propofol (Diprivan) 20 ml @ As Directed STK-MED ONCE IV ; Start 09/28/16 at 06:55 ; Stop 09/28/16 at 06:56; Status DC Lidocaine HCl (Lidocaine Pf 2% Vial) 5 ml STK-MED ONCE .ROUTE ; Start 09/28/16 at 06:55; Stop 09/28/16 at 06:56; Status DC Iohexol (Omnipaque 350 Mg/ml) 75 ml 1X ONCE IV ; Start 09/28/16 at 14:00; Stop 09/28/16 at 14:01; Status DC Info 1 each 1 each PRN DAILY PRN MC SEE COMMENTS; Start 09/28/16 at 14:00; Stop 09/30/16 at 13:59 Sodium Bicarbonate/ Sterile Water 1,150 ml @ 0 mls/hr Q0M IV ; Start 09/28/16 at 14:30 Active Scripts Active Clopidogrel (Clopidogrel Bisulfate) 75 Mg Tablet 75 Mg PO DAILYWBKFT 30 Days Carvedilol 12.5 Mg Tablet 12.5 Mg PO BIDWMEALS 30 Days Reported Levothyroxine Sodium 50 Mcg Tablet 1 Tab PO DAILY Omeprazole 40 Mg Capsule.dr 1 Cap PO DAILY Carvedilol 6.25 Mg Tablet 1 Tab PO BID Fish Oil 1,200 mg Softgel ([place]-3S/Dha/Epa/Fish Oil) 1 Each Capsule 1 Each PO DAILY Eliquis (Apixaban) 5 Mg Tablet 5 Mg PO BID Amiodarone Hcl 200 Mg Tablet 1 Tab PO DAILY Lisinopril 5 Mg Tablet 1 Tab PO DAILY Multiple Vitamins (Multivitamin) 1 Each Tablet 1 Each PO DAILY Tamsulosin Hcl 0.4 Mg Cap.er.24h 1 Cap PO HS Tramadol Hcl 50 Mg Tablet 1 Tab PO TID Finasteride 5 Mg Tablet 1 Tab PO DAILY Pravastatin Sodium 40 Mg Tablet 1 Tab PO QHS Children's Aspirin (Aspirin) 81 Mg Tab.chew 81 Mg PO Vitals/I & O Vital Sign - Last 24 Hours 09/27/16 09/27/16 09/27/16 09/27/16 15:05 17:45 19:00 20:00 Temp 97.7 98.1 97.7 98.1 Pulse 71 84 85 Resp 18 18 B/P 103/57 124/69 114/62 Pulse Ox 95 93 O2 Delivery Room Air Room Air Room Air 09/27/16 09/27/16 09/27/16 09/28/16 20:32 21:32 23:00 02:56 Temp 98.2 97.7 98.2 97.7 Pulse 83 65 Resp 18 18 18 18 B/P 118/56 119/59 Pulse Ox 93 93 95 98 O2 Delivery Room Air Room Air Room Air Room Air 09/28/16 09/28/16 09/28/16 09/28/16 07:00 08:00 08:21 08:24 Temp 97.9 98.2 97.9 98.2 Pulse 70 78 Resp 19 18 B/P 99/53 Pulse Ox 97 97 O2 Delivery Room Air Room Air Room Air 09/28/16 09/28/16 09/28/16 09:27 09:42 09:55 Temp 97.3 97.3 Pulse 77 74 66 Resp 18 20 20 B/P 117/57 87/52 107/62 Pulse Ox 94 95 96 O2 Delivery Room Air Room Air Intake and Output 09/27/16 09/27/16 09/28/16 15:00 23:00 07:00 Intake Total 490 ml 500 ml Output Total 3 ml Balance 490 ml 497 ml CARLOS ALBERTO MONTILLA MD Sep 28, 2016 14:30
[2016-09-28] MEDS: OMEGA-3 FATTY ACIDS/FISH OIL 1,000 MG CAPSULE. PO SCH (16:42)
[2016-09-28] MEDS: PANTOPRAZOLE 40 MG TABLET. PO SCH (16:42)
[2016-09-28] MEDS: MULTIVITAMIN with MINERAL TABLET. PO SCH (16:43)
[2016-09-28] MEDS: FINASTERIDE 5 MG TABLET PO SCH (16:43)
--- NOTE | 2016-09-28 17:14 | RAD ---
Indication low hemoglobin. Blood in stool last night. 33 mCi of technetium was used to tagged to the patient's red blood cells. Initially a dynamic sequence was performed over a 2 minute time frame. Additional imaging was performed over a one hour time frame. No active GI bleeding is seen. IMPRESSION: Negative GI bleeding scan
[2016-09-28] MEDS: TAMSULOSIN 0.4 MG CAP.ER.24H. PO SCH (21:28)
[2016-09-28] MEDS: ATORVASTATIN CALCIUM 10 MG TABLET. PO SCH (21:28)
[2016-09-29 03:10] VITALS: BP 116/68
[2016-09-29 04:18] LABS: HEMATOCRIT 25.6 % (39.0-53.0); HEMOGLOBIN 8.6 g/dL (13.0-17.5); RED BLOOD COUNT 2.77 x10^6/uL (4.30-5.70); RED CELL DISTRIBUTION WIDTH 15.9 % (11.5-14.5); WHITE BLOOD COUNT 9.1 x10^3/uL (4.0-11.0)
[2016-09-29 04:33] LABS: INR 1.2 (0.8-1.1); PROTHROMBIN TIME PATIENT 14.2 SEC (11.7-14.0)
[2016-09-29] MEDS: LEVOTHYROXINE 50 MCG TABLET PO SCH (05:23)
--- NOTE | 2016-09-29 07:30 | PDOC ---
Provider Note Provider Note feels ok- hb up 8.6- vss- gi scan neg, ct pending- may be able to go later today if gi ok, resume iron VERENICE BLOOD MD Sep 29, 2016 07:29
[2016-09-29] MEDS: OMEGA-3 FATTY ACIDS/FISH OIL 1,000 MG CAPSULE. PO SCH (09:53)
[2016-09-29] MEDS: CARVEDILOL 6.25 MG TABLET PO SCH ×2 (09:54→17:15)
[2016-09-29] MEDS: FERROUS SULFATE 325 MG TABLET PO SCH ×2 (09:54→17:15)
[2016-09-29] MEDS: MULTIVITAMIN with MINERAL TABLET. PO SCH (09:54)
[2016-09-29] MEDS: LISINOPRIL 10 MG TABLET PO SCH (09:55)
[2016-09-29] MEDS: FINASTERIDE 5 MG TABLET PO SCH (09:55)
[2016-09-29] MEDS: TRAMADOL 50 MG TABLET. PO SCH ×2 (09:55→13:39)
[2016-09-29] MEDS: PANTOPRAZOLE 40 MG TABLET. PO SCH (09:57)
[2016-09-29 11:04] VITALS: BP 141/66
--- NOTE | 2016-09-29 11:09 | PDOC ---
Subjective: Subjective: Feeling better. Eating well. No BM since prep but did pass some mucous w/ a little blood. Notes black stool transitioning to red during colonoscopy prep 09/27. Objective: Vital Signs: Vital Signs Date Time Temp Pulse Resp B/P Pulse Ox O2 Delivery O2 Flow Rate FiO2 09/29/16 09:55 60 116/68 09/29/16 08:00 Room Air 09/29/16 03:10 98.5 20 95 98.5 Labs: Laboratory Tests Test 09/29/16 03:50 09/29/16 03:55 Prothrombin Time 14.2SEC Prothromb Time International Ratio 1.2 White Blood Count 9.1x10^3/uL Red Blood Count 2.77x10^6/uL Hemoglobin 8.6g/dL Hematocrit 25.6% Mean Corpuscular Volume 93fL Mean Corpuscular Hemoglobin 31pg Mean Corpuscular Hemoglobin Concent 33g/dL Red Cell Distribution Width 15.9% Platelet Count 169x10^3/uL Imaging: EGD/colonoscopy 09/28/16: non-erosive gastritis, internal hemorrhoids, sigmoid/ descending colon diverticulosis, retained blood cecum without obvious source. Bleeding Scan 09/28/16 IMPRESSION: Negative GI bleeding scan CTA 09/28/16 PENDING PE: GEN: NAD LUNGS: clear anteriorly HEART: S1S2 ABD: NABS, S/ND/NT NEURO/PSYCH: A & O 3 OTHER: present A/P: Anemia -Hgb improved to 8.6, last transfused 1 unit 09/28 -EGD and colonoscopy as above w/ retained blood in cecum w/o obvious source, GI bleed scan negative, CTA pending -on po iron and PPI -some mucousy red blood w/ wiping -- Note possible DC today - will review w/ Dr. Cardenas. LONG CASTANEDA Sep 29, 2016 11:09
--- NOTE | 2016-09-29 13:11 | RAD ---
CTA of the abdomen and pelvis without comparison for gastrointestinal bleeding. Technique: Contiguous helical 3 mm axial images are obtained from the apex the diaphragm to the pelvic floor prior to administration of IV contrast as well as following IV contrast in the arterial and venous phases. Nonvascular findings: Coarse interstitial thickening is seen throughout both lung bases, possibly reflective of pulmonary edema and/or chronic interstitial lung disease. No pleural effusions. No focal infiltrates. Postsurgical changes of the liver are seen. There is also a prior cholecystectomy. There is thinning of the renal cortex bilaterally, with no suspicious mass lesions identified. Simple appearing left renal cyst is noted. There is no hydronephrosis. The bilateral adrenal glands are normal. Spleen is normal. Pancreas is mildly atrophic but otherwise unremarkable. No intra or extra hepatic biliary ductal dilatation. No free or loculated fluid collections within the abdomen or pelvis. The urinary bladder is partially fluid distended and grossly unremarkable. Prostate is enlarged. There are innumerable sigmoid diverticula without evidence of active diverticulitis. Calcific debris is present within the cecum. No areas of contrast accumulation to suggest active enteric bleeding are identified. No suspicious osteoblastic or osteolytic bone lesions are identified. There are severe degenerative changes of the thoracal lumbar spine, with changes most notable at T12-L1 resulting in near complete obliteration of the intervertebral disc space as well as erosion of both the inferior and superior endplates at this junction, with osteophyte formation. Findings may be degenerative, however discitis/osteomyelitis on a chronic basis could have a similar appearance. Correlate clinically and consider further evaluation with MRI if clinically warranted. Vascular findings: There is extensive coronary artery disease. There is moderate diffuse atherosclerotic disease throughout a nonaneurysmal aorta. There is [id number] atherosclerosis involving the celiac artery and superior mesenteric artery. Single bilateral renal arteries are patent with mild atherosclerotic disease. The inferior mesenteric artery is patent. Bilateral iliofemoral arteries are patent as well, with mild multifocal atherosclerotic disease. No aneurysms, significant stenoses, or branch occlusions are seen involving any vascular distribution. Impression: 1. No evidence of active enteric hemorrhage, aneurysm, similar lesion, or vascular malformation. 2. Innumerable sigmoid diverticula without evidence of acute diverticulitis. 3. Changes of the lung bases suggestive of chronic interstitial fibrosis or less likely pulmonary edema. No pleural effusions. 4. Perihepatic postsurgical changes. 5. Endplate erosions and disc space obliteration at T12-L1, which may be on the basis of severe degenerative change, however chronic discitis/osteomyelitis could have a similar appearance. Clinical correlation is recommended. If clinically warranted, consider further evaluation with MRI of the thoracolumbar spine. 6. Renal cortical thinning suggestive of chronic renal insufficiency.
--- NOTE | 2016-09-29 14:00 | PDOC ---
PROGRESS NOTES Subjective Subjective Pt feeling ok today. Has had one dark bowel movement, denies feeling lightheaded or short of breath. No cardiac complaints. Objective Objective Vital Signs Date Time Temp Pulse Resp B/P Pulse Ox O2 Delivery O2 Flow Rate FiO2 09/29/16 11:04 98.0 87 15 141/66 95 Room Air 98.0 Intake and Output 09/29/16 07:00 Intake Total 3033 ml Output Total 1250 ml Balance 1783 ml Intake Oral 2300 ml Blood Product IV Normal Saline Flush 733 ml Output Urine Total 1250 ml # Voids 2 Physical Exam Abdomen: Normal bowel sounds, Soft, No tenderness Heart: Regular rate, Normal S1, Normal S2 General: Alert, Cooperative, No acute distress Lungs: Clear to auscultation Assessment Assessment Stable from cardiac perspective Problems Medical Problems: (1) Anemia Status: Acute Plan Plan of Care Pt stable for discharge from cardiac perspective. Comment Review of Relevant I have reviewed the following items joana (where applicable) has been applied. Labs Laboratory Tests Test 09/27/16 16:45 09/28/16 05:05 09/29/16 03:50 09/29/16 03:55 White Blood Count 13.0x10^3/uL (4.0-11.0) 9.0x10^3/uL (4.0-11.0) 9.1x10^3/uL (4.0-11.0) Red Blood Count 2.84x10^6/uL (4.30-5.70) 2.39x10^6/uL (4.30-5.70) 2.77x10^6/uL (4.30-5.70) Hemoglobin 8.6g/dL (13.0-17.5) 7.3g/dL (13.0-17.5) 8.6g/dL (13.0-17.5) Hematocrit 27.4% (39.0-53.0) 23.0% (39.0-53.0) 25.6% (39.0-53.0) Mean Corpuscular Volume 97fL (79-100) 96fL (79-100) 93fL (79-100) Mean Corpuscular Hemoglobin 30pg (25-35) 31pg (25-35) 31pg (25-35) Mean Corpuscular Hemoglobin Concent 32g/dL (31-37) 32g/dL (31-37) 33g/dL (31-37) Red Cell Distribution Width 16.5% (11.5-14.5) 18.2% (11.5-14.5) 15.9% (11.5-14.5) Platelet Count 249x10^3/uL (140-400) 198x10^3/uL (140-400) 169x10^3/uL (140-400) Prothrombin Time 14.2SEC (11.7-14.0) Prothromb Time International Ratio 1.2 (0.8-1.1) Laboratory Tests Test 09/29/16 03:50 09/29/16 03:55 Prothrombin Time 14.2SEC (11.7-14.0) Prothromb Time International Ratio 1.2 (0.8-1.1) White Blood Count 9.1x10^3/uL (4.0-11.0) Red Blood Count 2.77x10^6/uL (4.30-5.70) Hemoglobin 8.6g/dL (13.0-17.5) Hematocrit 25.6% (39.0-53.0) Mean Corpuscular Volume 93fL (79-100) Mean Corpuscular Hemoglobin 31pg (25-35) Mean Corpuscular Hemoglobin Concent 33g/dL (31-37) Red Cell Distribution Width 15.9% (11.5-14.5) Platelet Count 169x10^3/uL (140-400) Medications Current Medications Amiodarone HCl (Cordarone) 200 mg DAILY PO ; Start 09/27/16 at 09:00; Stop 09/27 at 09:00; Status DC Carvedilol (Coreg) 6.25 mg BIDWMEALS PO Last administered on 09/29/16 09:54; Start 09/26/16 at 17:00 Finasteride (Proscar) 5 mg DAILY PO Last administered on 09/29/16 09:55; Start 09/27/16 at 09:00 Tamsulosin HCl (Flomax) 0.4 mg HS PO Last administered on 09/28/16 21:28; Start 09/26/16 at 21:00 Tramadol HCl (Ultram) 50 mg TID PO Last administered on 09/29/16 13:39; Start 09/26/16 at 14:00 Multivitamins/ Calcium (Thera M Plus) 1 tab DAILY PO Last administered on 09:54; Start 09/27/16 at 09:00 Fish Oil (Fish Oil) 1,000 mg DAILY PO Last administered on 09/29/16 09:53; Start 09/27/16 at 09:00 Atorvastatin Calcium (Lipitor) 10 mg QHS PO Last administered on 09/28/16 21:28 ; Start 09/26/16 at 21:00 Levothyroxine Sodium (Synthroid) 50 mcg DAILY07 PO Last administered on 05:23; Start 09/27/16 at 07:00 Pantoprazole Sodium (Protonix) 40 mg DAILYAC PO Last administered on 09/29/16 09:57; Start 09/27/16 at 07:30 Lisinopril (Prinivil) 10 mg DAILY PO Last administered on 09/29/16 09:55; Start 09/27/16 at 09:00 Sodium Cl/Sod Bicarb/Potass Cl/ PEG (Golytely) 4,000 ml 1X ONCE PO Last administered on 09/27/16 12:57; Start 09/27/16 at 10:30; Stop 09/27/16 at 10:31 ; Status DC Ondansetron HCl (Zofran) 4 mg PRN Q6HRS PRN IV Nausea; Start 09/28/16 at 07:00; Stop 09/29/16 at 06:59; Status DC Fentanyl Citrate (Fentanyl 2ml Vial) 25 mcg PRN Q5MIN PRN IV MILD PAIN; Start 09/28/16 at 07:00; Stop 09/29/16 at 06:59; Status DC Fentanyl Citrate (Fentanyl 2ml Vial) 50 mcg PRN Q5MIN PRN IV MODERATE PAIN; Start 09/28/16 at 07:00; Stop 09/29/16 at 06:59; Status DC Morphine Sulfate 1 mg 1 mg PRN Q10MIN PRN IV SEVERE PAIN; Start 09/28/16 at 07: 00; Stop 09/29/16 at 06:59; Status DC Lactated Ringer's (Iv Lactated Ringers) 1,000 ml @ 0 mls/hr Q0M IV Last administered on 09/28/16 08:26; Start 09/28/16 at 07:00; Stop 09/28/16 at 18:59; Status DC Lidocaine HCl 2 ml 1X PRN PRN ID IV START; Start 09/28/16 at 07:00; Stop at 06:59; Status DC Hydromorphone HCl (Dilaudid) 0.5 mg PRN Q10MIN PRN IV SEVERE PAIN, Second choice; Start 09/28/16 at 07:00; Stop 09/29/16 at 06:59; Status DC Prochlorperazine Edisylate 5 mg 5 mg PACU PRN PRN IV NAUSEA; Start 09/28/16 at 07:00; Stop 09/29/16 at 06:59; Status DC Propofol (Diprivan) 20 ml @ As Directed STK-MED ONCE IV ; Start 09/28/16 at 06:55 ; Stop 09/28/16 at 06:56; Status DC Lidocaine HCl (Lidocaine Pf 2% Vial) 5 ml STK-MED ONCE .ROUTE ; Start 09/28/16 at 06:55; Stop 09/28/16 at 06:56; Status DC Iohexol (Omnipaque 350 Mg/ml) 75 ml 1X ONCE IV Last administered on 09/28/16 14:37; Start 09/28/16 at 14:00; Stop 09/28/16 at 14:01; Status DC Info 1 each 1 each PRN DAILY PRN MC SEE COMMENTS; Start 09/28/16 at 14:00; Stop 09/30/16 at 13:59 Sodium Bicarbonate/ Sterile Water 1,150 ml @ 0 mls/hr Q0M IV ; Start 09/28/16 at 14:30 Ferrous Sulfate (Feosol) 325 mg BIDAFTMEAL PO Last administered on 09/29/16 09: 54; Start 09/29/16 at 09:00 Glycopyrrolate (Robinul) 1 mg STK-MED ONCE .ROUTE ; Start 09/28/16 at 12:00; Stop 09/29/16 at 08:05; Status DC Active Scripts Active Clopidogrel (Clopidogrel Bisulfate) 75 Mg Tablet 75 Mg PO DAILYWBKFT 30 Days Carvedilol 12.5 Mg Tablet 12.5 Mg PO BIDWMEALS 30 Days Reported Levothyroxine Sodium 50 Mcg Tablet 1 Tab PO DAILY Omeprazole 40 Mg Capsule. 1 Cap PO DAILY Carvedilol 6.25 Mg Tablet 1 Tab PO BID Fish Oil 1,200 mg Softgel ([place]-3S/Dha/Epa/Fish Oil) 1 Each Capsule 1 Each PO DAILY Eliquis (Apixaban) 5 Mg Tablet 5 Mg PO BID Amiodarone Hcl 200 Mg Tablet 1 Tab PO DAILY Lisinopril 5 Mg Tablet 1 Tab PO DAILY Multiple Vitamins (Multivitamin) 1 Each Tablet 1 Each PO DAILY Tamsulosin Hcl 0.4 Mg Cap.er.24h 1 Cap PO HS Tramadol Hcl 50 Mg Tablet 1 Tab PO TID Finasteride 5 Mg Tablet 1 Tab PO DAILY Pravastatin Sodium 40 Mg Tablet 1 Tab PO QHS Children's Aspirin (Aspirin) 81 Mg Tab.chew 81 Mg PO Vitals/I & O Vital Sign - Last 24 Hours 09/28/16 09/28/16 09/28/16 09/28/16 16:37 16:44 17:00 17:25 Temp 98.2 98.2 97.5 98.2 98.2 97.5 Pulse 79 79 66 Resp 20 20 20 20 B/P 96/55 96/55 103/53 Pulse Ox 96 96 O2 Delivery Room Air Room Air 09/28/16 09/28/16 09/28/16 09/28/16 18:08 18:10 19:00 19:04 Temp 98.1 97.9 97.9 98.1 97.9 97.9 Pulse 66 66 76 76 Resp 20 20 20 B/P 112/60 112/60 104/60 104/60 Pulse Ox 98 O2 Delivery Room Air 09/28/16 09/28/16 09/28/16 09/28/16 20:00 20:04 21:28 22:28 Temp 98.0 98.0 Pulse 70 Resp 18 18 18 B/P 130/62 Pulse Ox 98 98 O2 Delivery Room Air Room Air Room Air 09/28/16 09/29/16 09/29/16 09/29/16 23:00 03:10 08:00 09:54 Temp 98.4 98.5 98.4 98.5 Pulse 86 60 60 Resp 20 20 B/P 122/69 116/68 116/68 Pulse Ox 96 95 O2 Delivery Room Air Room Air Room Air 09/29/16 09/29/16 09:55 11:04 Temp 98.0 98.0 Pulse 60 87 Resp 15 B/P 116/68 141/66 Pulse Ox 95 O2 Delivery Room Air Intake and Output 09/28/16 09/28/16 09/29/16 15:00 23:00 07:00 Intake Total 1233 ml 1800 ml Output Total 1250 ml Balance 1233 ml 550 ml CARLOS ALBERTO MONTILLA MD Sep 29, 2016 14:00
[2016-09-29 14:58] VITALS: BP 104/59
[2016-09-29 15:42] LABS: NEG OBC FOB NEG; POS OBC FOB POS
[2016-09-29 17:15] VITALS: BP 104/59
== END 2016-09-29 18:44 | disposition home or self-care (01) | DRG 378 ==
LOC: 5 NORTH 10:22
PROVIDERS: ADMIT Family Medicine; ATTEND Family Medicine
PROC: 30233N1 Transfusion of Nonautologous Red Blood Cells into Peripheral Vein, Percutaneous Approach (ICD-10-PCS; 2016-09-26)
PROC: 0DJ08ZZ Inspection of Upper Intestinal Tract, Via Natural or Artificial Opening Endoscopic (ICD-10-PCS; 2016-09-28)
PROC: 0DJD8ZZ Inspection of Lower Intestinal Tract, Via Natural or Artificial Opening Endoscopic (ICD-10-PCS; principal; 2016-09-28 09:00)
DX: K29.01 Acute gastritis with bleeding (principal); D62 Acute posthemorrhagic anemia; I13.0 Hypertensive heart and chronic kidney disease with heart failure and stage 1 through stage 4 chronic kidney disease, or unspecified chronic kidney disease; I25.10 Atherosclerotic heart disease of native coronary artery without angina pectoris; E78.5 Hyperlipidemia, unspecified; E03.9 Hypothyroidism, unspecified; D50.9 Iron deficiency anemia, unspecified; K64.1 Second degree hemorrhoids; I25.5 Ischemic cardiomyopathy; I48.2 Chronic atrial fibrillation; K57.30 Diverticulosis of large intestine without perforation or abscess without bleeding; K64.8 Other hemorrhoids; N18.3 Chronic kidney disease, stage 3 (moderate); N40.0 Benign prostatic hyperplasia without lower urinary tract symptoms; I50.9 Heart failure, unspecified; Z79.01 Long term (current) use of anticoagulants; Z80.1 Family history of malignant neoplasm of trachea, bronchus and lung; Z95.5 Presence of coronary angioplasty implant and graft; I25.2 Old myocardial infarction
CPT/HCPCS: 36415; 74174; 78278; 80053; 82274; 84436; 84443; 84481; 85027; 85610; 86850; 86900; 86901; 86920; 93005; 96374; A9560; J2704; J3490; J7120; P9016; Q9967

== ENCOUNTER 2017-04-23 15:12 | Emergency (ER) | payer OTHER ==
[~2017-04-23 15:12] MED LIST changes: +ASPI-630 PO; -ASPI81TA2 PO; +CARV6.252 PO; +LEVO50TA5 PO; -MELO-150 PO; +MELO15TA23 PO; +OMEP40CA5 PO
--- NOTE | 2017-04-23 15:27 | RAD ---
CT scan of the head without contrast 04/23/2017 Clinical History: Code stroke, altered mental status. Weakness.. Technique: Unenhanced, contiguous, 5 mm axial sections were obtained through the head. One or more of the following individualized dose reduction techniques were utilized for this study: 1. Automated exposure control. 2. Adjustment of the mA and/or kV according to patient size. 3. Use of iterative reconstruction technique. Findings: No previous studies are available for comparison. There is generalized parenchymal atrophy. Small scattered areas of decreased attenuation are seen within the periventricular and subcortical white matter of both cerebral hemispheres consistent with areas of small vessel ischemic disease. No acute parenchymal abnormality is seen. No extra-axial fluid collection is noted. No skull fracture is seen. Impression: No acute intracranial abnormality is seen. This result was called to Dr. Ramos at 1524 hours.
[2017-04-23 15:33] LABS: ISTAT INR 1.2 (0.9-1.1); ISTAT PT 13.7 Sec (10.0-14.0)
[2017-04-23 15:35] LABS: HEMATOCRIT 44.6 % (39.0-53.0); HEMOGLOBIN 15.1 g/dL (13.0-17.5); RED BLOOD COUNT 4.78 x10^6/uL (4.30-5.70); RED CELL DISTRIBUTION WIDTH 13.3 % (11.5-14.5); WHITE BLOOD COUNT 9.7 x10^3/uL (4.0-11.0)
[2017-04-23 15:44] LABS: INR 1.1 (0.8-1.1); PROTHROMBIN TIME PATIENT 13.8 SEC (11.7-14.0)
[2017-04-23 15:45] LABS: CALCIUM 9.5 mg/dL (8.5-10.1); CREATININE 1.3 mg/dL (0.7-1.3); POTASSIUM 4.1 mmol/L (3.5-5.1)
--- NOTE | 2017-04-23 15:54 | RAD ---
AP portable chest radiograph 04/23/2017 Clinical History: Code stroke. An AP portable erect digital radiograph of the chest was obtained. Comparison study is dated 04/06/2016. The cardiac silhouette is mild to moderately enlarged. The thoracic aorta is tortuous. Atherosclerotic calcification of the thoracic aorta is seen. Left lower lobe atelectasis and/or infiltrate is noted. Prominence of the pulmonary vasculature is seen suggesting mild to moderate CHF. There is a probable small left pleural effusion. No pneumothorax is seen. Degenerative changes are seen involving the thoracic spine and both shoulders. Impression: 1. Left lower lobe atelectasis and/or infiltrate. 2. Prominence of pulmonary vasculature is seen suggesting mild to moderate CHF.
[2017-04-23 16:00] VITALS: BP 162/81
[2017-04-23] MEDS ORDERED: IV NORMAL SALINE 50ML 50 ML IV ONE (16:00)
[2017-04-23] MEDS ORDERED: ALTEPLASE 81 MG IV SCH (16:00)
[2017-04-23] MEDS ORDERED: ALTEPLASE 9 MG IV ONE (16:00)
--- NOTE | 2017-04-23 16:11 | PHYS DOC ---
Past Medical History Past Medical History: A-Fib, CHF, Hypertension, PA, Pneumonia Past Surgical History: Appendectomy, Cholecystectomy Additional Past Surgical Histo: CARDIAC STENTS Alcohol Use: Rarely Drug Use: None Adult General Chief Complaint Chief Complaint: NEURO SYMPTOMS/DEFICITS HPI HPI Patient is a 81 year old male who was brought to the ED "code stroke" by EMS from home. Report from EMS is that the patient at 2:30 was normal. He had walked across the room to check on his bird. His left the room briefly. She came back into the room and saw that he was sitting in a chair. He was not responding to her. He was not talking. His right side was flaccid. She called 911. That call was at [phone]. They arrived to find the patient with right hemiparesis, aphasic, with stable vital signs. They brought the patient is a code stroke. When the patient's arrived, she states the patient has not had a stroke in the past. He has a cardiac history. She produced a med list that includes aspirin 81 mg and clopidogrel. He previously was on Eliquis but the patient's track production engineer, Dr. Brink, states that he stopped the Eliquis about 2 months ago due to side effects. Patient's is not aware of any recent bleeding including any GI bleeding or bleeding elsewhere. He has not had recent surgery. PCP Dr. Fabrice Blood Hardware Sales Assistant Dr. Brink Review of Systems Review of Systems Unable to obtain review of systems because the patient is aphasic. Current Medications Current Medications Current Medications Medications (Trade) Dose Ordered Sig/Nazia Start Time Stop Time Status Last Admin Dose Admin Alteplase, Recombinant 81 ml @ 81 mls/hr Q1H 04/23/17 16:00 04/23/17 16:59 DC 04/23/17 16:03 81 MLS/HR Sodium Chloride 50 ml @ 0 mls/hr 1X ONCE 04/23/17 16:00 04/23/17 16:01 DC Allergies Allergies Allergies Coded Allergies Type Severity Reaction Last Updated Verified No Known Drug Allergies 09/26/16 No Physical Exam Physical Exam Constitutional: Well developed, well nourished, eyes are open, following with his eyes, aphasic HENT: Normocephalic, atraumatic, bilateral external ears normal, oropharynx moist, no oral exudates, nose normal. [] Eyes: conjunctiva normal, no discharge. [] Neck: Normal range of motion, no stridor. [] Cardiovascular:Heart rate regular rhythm, no murmur [] Lungs & Thorax: Bilateral breath sounds clear to auscultation [] Abdomen: Bowel sounds normal, soft, no tenderness, no masses, no pulsatile masses. [] Skin: Warm, dry, no erythema, no rash. [] Extremities: No tenderness, no cyanosis, no clubbing, ROM intact, no edema. [] Neurologic: See NIH stroke scale NIH stroke scale by me and ED RN 1a Level of consciousness 0 1 b he is aphasic so was given a 2 1c commands 0 2 best gaze the patient is only looking from the midline to the left, his eyes do not cross the midline to the right, he was given 1 3 difficult to test. He was given a 2 4 he does have some movement of the right face and some preservation of the right nasolabial fold, 2 5a left arm 0 5b right arm 4 6 left leg 0 6 right leg 4 7 limb ataxia, unable to test on the right, scored as 1 8 2 for right side 9 3 10 2 11 2 total NIH 23 Current Patient Data Vital Signs Vital Signs Date Time Temp Pulse Resp B/P (MAP) Pulse Ox O2 Delivery O2 Flow Rate FiO2 04/23/17 16:00 64 162/81 (108) 95 Room Air 04/23/17 15:17 98.7 20 98.7 Lab Values Laboratory Tests Test 04/23/17 15:20 04/23/17 15:27 04/23/17 15:28 White Blood Count 9.7 x10^3/uL (4.0-11.0) Red Blood Count 4.78 x10^6/uL (4.30-5.70) Hemoglobin 15.1 g/dL (13.0-17.5) Hematocrit 44.6 % (39.0-53.0) Mean Corpuscular Volume 93 fL (79-100) Mean Corpuscular Hemoglobin 32 pg (25-35) Mean Corpuscular Hemoglobin Concent 34 g/dL (31-37) Red Cell Distribution Width 13.3 % (11.5-14.5) Platelet Count 189 x10^3/uL (140-400) Prothrombin Time 13.8 SEC (11.7-14.0) 13.7 Sec (10.0-14.0) Prothrombin Time INR 1.1 (0.8-1.1) PTT 29 SEC (24-38) Sodium Level 139 mmol/L (136-145) Potassium Level 4.1 mmol/L (3.5-5.1) Chloride Level 102 mmol/L (98-107) Carbon Dioxide Level 26 mmol/L (21-32) Anion Gap 11 (6-14) Blood Urea Nitrogen 17 mg/dL (8-26) Creatinine 1.3 mg/dL (0.7-1.3) Estimated GFR (Cockcroft-Gault) 53.0 Glucose Level 108 mg/dL (70-99) H Calcium Level 9.5 mg/dL (8.5-10.1) POC INR 1.2 (0.9-1.1) H Glucose (Fingerstick) 107 mg/dL (70-99) H Laboratory Tests 04/23/17 15:20 Laboratory Tests 04/23/17 15:20 EKG EKG 12-lead EKG read by me. Atrial fibrillation. Heart rate 66. There is poor R- wave progression across the precordium. There are no acute ST or T wave changes indicative of ischemia or infarction. No STEMI. 1527[] Radiology/Procedures Radiology/Procedures CT of the head. Patient went straight to CT when he arrived. CT scan of the head read by the radiologist and called to the ED at 1524 hrs., no acute intracranial abnormality[] Course & Med Decision Making Course & Med Decision Making Pertinent Labs and Imaging studies reviewed. (See chart for details) 81-year-old male with a history of cardiac problems and A. fib but no history of a stroke, who is reported by the patient's and his track production engineer, who is here in the ED, to be fully functional at baseline. We have a very good timeline of onset of symptoms between 2:30 and 2:40 today. The patient reportedly takes Plavix and aspirin 81 mg but has stopped Eliquis about 2 months ago because of side effects. I discussed the case with Dr. Jefferson, neurologist on-call. He recommended that I emergently call the stroke attending line, which I did. I called and spoke with Dr. Li, who recommended that we emergently transfer the patient to for imaging and potential clot retrieval. She would like to have the TPA started here before the patient is transferred. I ordered tPA and the pharmacy brought that up and it was started with a bolus and infusion per protocol. Dr. Brink, the patient's track production engineer, happened to come to the emergency department and went in to see the patient. We discussed the case and he is in favor of offering TPA to the patient. I discussed with the patient's the diagnosis of acute ischemic stroke and discussed the recommendation of TPA administration plus transfer to a higher level stroke Center for possible clot retrieval. She is agreeable to that plan. The patient remained stable in the emergency department without any change in his symptoms of a aphasia, right hemiparesis, and right lateral gaze disturbance. There is no improvement and no worsening in his symptoms. EMS was called emergently to transfer the patient to . TPA bolus was running at the time that the patient left. Critical care time 60 minutes including bedside evaluation and reevaluation, discussion of the case with multiple consultants, and arranging transfer to [facility], administration and consent for TPA. [] Dragon Disclaimer Dragon Disclaimer This electronic medical record was generated, in whole or in part, using a voice recognition dictation system. Departure Departure Impression: Primary Impression: Acute ischemic left MCA stroke Disposition: 02 TRANSFER [facility] Condition: CRITICAL Referrals: FABRICE BLOOD MD (PCP) SALVATORE GARCIA MD Apr 23, 2017 16:11
--- NOTE | 2017-04-24 06:23 | EKG ---
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
== END 2017-04-23 16:14 | disposition short-term general hospital (02) ==
LOC: ER 15:12
DX: I63.9 Cerebral infarction, unspecified (principal); I48.91 Unspecified atrial fibrillation; I11.0 Hypertensive heart disease with heart failure; I50.9 Heart failure, unspecified; I25.2 Old myocardial infarction; Z95.5 Presence of coronary angioplasty implant and graft; Z79.82 Long term (current) use of aspirin; Z87.01 Personal history of pneumonia (recurrent); Z90.49 Acquired absence of other specified parts of digestive tract; Z79.01 Long term (current) use of anticoagulants
CPT/HCPCS: 36415; 37195; 51702; 70450; 71010; 80048; 82962; 85027; 85610; 85730; 93005; 99291; J2997

== ENCOUNTER 2017-06-26 13:56 | Inpatient (IN) | payer OTHER ==
[2017-06-26] VITALS (7 sets, daily range): BP systolic 79–128; BP diastolic 49–74
[~2017-06-26] VITALS: Ht 172.7 cm; Wt 100.7 kg
[2017-06-26] MEDS ORDERED: IV NORMAL SALINE 1000ML BAG 1,000 ML IV SCH (14:22)
[2017-06-26] MEDS ORDERED: 0.9 % SODIUM CHLORIDE 10 ML DISP.SYRIN. IV PRN (14:30)
[2017-06-26] MEDS ORDERED: ONDANSETRON PF 4 MG/2 ML VIAL. IV ONE (14:30)
--- NOTE | 2017-06-26 14:36 | PHYS DOC ---
Past Medical History Past Medical History: A-Fib, CHF, Hypertension, ID, Pneumonia Past Surgical History: Appendectomy, Cholecystectomy Additional Past Surgical Histo: CARDIAC STENTS Alcohol Use: Rarely Drug Use: None Adult General Chief Complaint Chief Complaint: DIARRHEA HPI HPI Patient is a 81 year old male who presents with complaint of vomiting, diarrhea , and abdominal pain. The patient was brought to the emergency department by private vehicle. The patient recently suffered a left MCA stroke in March 2017 and has been in neuro rehabilitation care over the past several weeks recovering from his stroke. The patient over the past 2 days has had trouble with diarrhea and vomiting. The patient has had lower blood pressures measured at his neuro rehabilitation care. The patient was brought to the emergency department due to his worsening symptoms. On evaluation, the patient was noted to have hypotension during triage. The patient is unable to provide full history due to his left MCA stroke and resultant aphasia. The patient is able to answer yes and no questions. Patient denies any pain in his abdomen currently but does acknowledge that he was having an earlier prior to throwing up. Patient has not recently been on any antibiotics and has not been in the hospital over the past 2-3 weeks. No reports of any measured fever. Patient has not been passing any blood in his emesis or stool. Review of Systems Review of Systems Constitutional: Denies fever or chills [] Eyes: Denies change in visual acuity, redness, or eye pain [] HENT: Denies nasal congestion or sore throat [] Respiratory: Denies cough or shortness of breath [] Cardiovascular: Denies chest pain or edema[] GI: Nausea, vomiting, abdominal pain, diarrhea[] : Denies dysuria or hematuria [] Musculoskeletal: Denies back pain or joint pain [] Integument: Denies rash or skin lesions [] Neurologic: Chronic right-sided hemiplegia, Broca's aphasia[] All other systems were reviewed and found to be within normal limits, except as documented in this note. Current Medications Current Medications Current Medications Medications (Trade) Dose Ordered Sig/Nazia Start Time Stop Time Status Last Admin Dose Admin Ondansetron HCl (Zofran) 4 mg 1X ONCE 06/26/17 14:30 06/26/17 14:31 DC 06/26/17 14:37 4 MG Sodium Chloride 1,000 ml @ 1,000 mls/hr 1X ONCE 06/26/17 15:45 06/26/17 16:44 06/26/17 15:39 1,000 MLS/HR Sodium Chloride (Normal Saline Flush) 10 ml QSHIFT PRN 06/26/17 14:30 06/26/17 15:39 10 ML Allergies Allergies Allergies Coded Allergies Type Severity Reaction Last Updated Verified No Known Drug Allergies 09/26/16 No Physical Exam Physical Exam Constitutional: Alert, afebrile, hypotensive, appears ill and dehydrated. [] HENT: Normocephalic, atraumatic, bilateral external ears normal, oropharynx dry , no oral exudates, nose normal. [] Eyes: PERRLA, EOMI, conjunctiva normal, no discharge. [] Neck: Normal range of motion, no tenderness, supple, no stridor. [] Cardiovascular:Heart rate regular rhythm, no murmur [] Lungs & Thorax: Bilateral breath sounds clear to auscultation [] Abdomen: Hyperactive bowel sounds, soft, no tenderness, no masses, no pulsatile masses. [] Skin: Warm, dry, no erythema, no rash. [] Back: No tenderness, no CVA tenderness. [] Extremities: No tenderness, no cyanosis, no clubbing, ROM intact, no edema. [] Neurologic: Alert and oriented X 3, follows commands, right-sided elizabeth-plegia, Broca's aphasia. [] Current Patient Data Vital Signs Vital Signs Date Time Temp Pulse Resp B/P (MAP) Pulse Ox O2 Delivery O2 Flow Rate FiO2 06/26/17 15:20 76 20 86/58 (67) 94 Room Air Lab Values Laboratory Tests Test 06/26/17 14:15 White Blood Count 8.4 x10^3/uL (4.0-11.0) Red Blood Count 4.61 x10^6/uL (4.30-5.70) Hemoglobin 14.9 g/dL (13.0-17.5) Hematocrit 44.0 % (39.0-53.0) Mean Corpuscular Volume 95 fL (79-100) Mean Corpuscular Hemoglobin 32 pg (25-35) Mean Corpuscular Hemoglobin Concent 34 g/dL (31-37) Red Cell Distribution Width 14.5 % (11.5-14.5) Platelet Count 217 x10^3/uL (140-400) Neutrophils (%) (Auto) 73 % (31-73) Lymphocytes (%) (Auto) 21 % (24-48) L Monocytes (%) (Auto) 3 % (0-9) Eosinophils (%) (Auto) 2 % (0-3) Basophils (%) (Auto) 1 % (0-3) Neutrophils # (Auto) 6.1 x10^3uL (1.8-7.7) Lymphocytes # (Auto) 1.8 x10^3/uL (1.0-4.8) Monocytes # (Auto) 0.2 x10^3/uL (0.0-1.1) Eosinophils # (Auto) 0.2 x10^3/uL (0.0-0.7) Basophils # (Auto) 0.1 x10^3/uL (0.0-0.2) Sodium Level 137 mmol/L (136-145) Potassium Level 3.7 mmol/L (3.5-5.1) Chloride Level 103 mmol/L (98-107) Carbon Dioxide Level 24 mmol/L (21-32) Anion Gap 10 (6-14) Blood Urea Nitrogen 15 mg/dL (8-26) Creatinine 1.5 mg/dL (0.7-1.3) H Estimated GFR (Cockcroft-Gault) 44.9 Glucose Level 115 mg/dL (70-99) H Calcium Level 9.3 mg/dL (8.5-10.1) Total Bilirubin 0.8 mg/dL (0.2-1.0) Direct Bilirubin 0.4 mg/dL (0.0-0.2) H Aspartate Amino Transferase (AST) 33 U/L (15-37) Alanine Aminotransferase (ALT) 31 U/L (16-63) Alkaline Phosphatase 37 U/L (46-116) L Creatine Kinase 116 U/L (39-308) Creatine Kinase MB (Mass) 3.4 ng/mL (0.0-3.6) Creatine Kinase MB Relative Index 2.9 % (0-4) Troponin I Quantitative 0.070 ng/mL (0.000-0.055) Total Protein 7.4 g/dL (6.4-8.2) Albumin 3.5 g/dL (3.4-5.0) Lipase 161 U/L (73-393) Laboratory Tests 06/26/17 14:15 Laboratory Tests 06/26/17 14:15 EKG EKG Interpreted by me: Heart rate 82, atrial fibrillation, left axis deviation, no acute ST/T-wave abnormalities present[] Radiology/Procedures Radiology/Procedures [facility] [address] [place] [address] IMAGING REPORT Signed PATIENT: DESIREE LOWRY ACCOUNT: [id number] : 1935 LOCATION: ER AGE: 81 SEX: M EXAM STATUS: REG ER ORD. PHYSICIAN: GEORGETTE ANGELA MD REASON: vomiting, abdominal pain PROCEDURE: ACUTE ABDOMEN SERIES Anterior abdominal series Indication: Vomiting abdominal pain Technique: Acute abdominal series x-rays Comparison: Chest plain film from 04/23/2017 Findings: Heart is mildly enlarged in size. Coarse bilateral interstitial opacities noted, stable likely chronic lung disease. No abnormally dilated bowel loops. No evidence of free intraperitoneal air. Multiple clips are seen in the right upper quadrant. No abnormal calcific densities projecting over the kidneys or expected course of the ureters. Lumbar spine degenerative disease noted. Otherwise, visualized bones are within normal limits. Impression: No abnormally dilated bowel loops to suggest bowel obstruction. DICTATED and SIGNED BY: BEATRIZ ADKINS DO DATE: 06/26/17 1506 CC: GEORGETTE ANGELA MD; VERENICE BLOOD MD ~ [] Course & Med Decision Making Course & Med Decision Making Pertinent Labs and Imaging studies reviewed. (See chart for details) The patient was started on IV fluids in the emergency department with improvement in blood pressure. The patient appears to be significantly volume depleted but is responding well at this time to aggressive IV hydration. The patient's symptoms appear to be due to an aggressive form of viral gastroenteritis. The patient will require admission to the hospital for further treatment and evaluation. Patient admitted to Dr. Blood. Skip Disclaimer Skip Disclaimer This electronic medical record was generated, in whole or in part, using a voice recognition dictation system. Departure Departure Impression: Primary Impression: Hemodynamic instability Additional Impressions: History of CVA (cerebrovascular accident) Congestive heart failure (CHF) Disposition: ADMITTED INPATIENT Admitting Physician: Verenice Blood Condition: GUARDED Referrals: VERENICE BLOOD MD (PCP) Problem Qualifiers Additional Impressions: Congestive heart failure (CHF) Congestive heart failure type: unspecified congestive heart failure type Congestive heart failure chronicity: chronic Qualified Codes: I50.9 - Heart failure, unspecified GEORGETTE ANGELA MD Jun 26, 2017 14:36
[2017-06-26 14:53] LABS: BASO # 0.1 x10^3/uL (0.0-0.2); BASO % 1 % (0-3); EOS % 2 % (0-3); HEMOGLOBIN 14.9 g/dL (13.0-17.5); LYMPH # 1.8 x10^3/uL (1.0-4.8); LYMPH % 21 % (24-48); MEAN CORPUSCULAR HEMOGLOBIN 32 pg (25-35); MEAN CORPUSCULAR HGB CONC 34 g/dL (31-37); MEAN CORPUSCULAR VOLUME 95 fL (79-100); MONO % 3 % (0-9); NEUT % 73 % (31-73); PLATELET COUNT 217 x10^3/uL (140-400); RED BLOOD COUNT 4.61 x10^6/uL (4.30-5.70); RED CELL DISTRIBUTION WIDTH 14.5 % (11.5-14.5); WHITE BLOOD COUNT 8.4 x10^3/uL (4.0-11.0)
--- NOTE | 2017-06-26 15:02 | EKG ---
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1935 Requested By: ANDREW PRATHER Order Number: [id number] Reading MD: Shaun Brink Measurements Intervals [place] Rate: 82 P: [place]: QRS: -56 QRSD: 88 T: 73 QT: 398 QTc: 468 Interpretive Statements IRREGULAR RHYTHM, ATRIAL FIBRILLATION ABNORMAL LEFT AXIS DEVIATION QRS(T) CONTOUR ABNORMALITY CONSISTENT WITH ANTERIOR INFARCT PROBABLY OLD CONSISTENT WITH INFEROLATERAL INFARCT PROBABLY OLD ABNORMAL ECG RI6.01 Compared to ECG 04/23/2017 15:27:53 Atrial fibrillation no longer present ST (T wave) deviation no longer present Myocardial infarct finding still present Electronically Signed On 06-26-2017 17:56:01 REMOTE MORTGAGE UNDERWRITER by Shaun Brink
--- NOTE | 2017-06-26 15:13 | RAD ---
Anterior abdominal series Indication: Vomiting abdominal pain Technique: Acute abdominal series x-rays Comparison: Chest plain film from 04/23/2017 Findings: Heart is mildly enlarged in size. Coarse bilateral interstitial opacities noted, stable likely chronic lung disease. No abnormally dilated bowel loops. No evidence of free intraperitoneal air. Multiple clips are seen in the right upper quadrant. No abnormal calcific densities projecting over the kidneys or expected course of the ureters. Lumbar spine degenerative disease noted. Otherwise, visualized bones are within normal limits. Impression: No abnormally dilated bowel loops to suggest bowel obstruction.
[2017-06-26 15:14] LABS: ALBUMIN 3.5 g/dL (3.4-5.0); CALCIUM 9.3 mg/dL (8.5-10.1); CREATININE 1.5 mg/dL (0.7-1.3); DIRECT BILIRUBIN 0.4 mg/dL (0.0-0.2); GFR 44.9; POTASSIUM 3.7 mmol/L (3.5-5.1); TOTAL BILIRUBIN 0.8 mg/dL (0.2-1.0); TOTAL PROTEIN 7.4 g/dL (6.4-8.2)
[2017-06-26 15:22] LABS: CKMB MASS 3.4 ng/mL (0.0-3.6)
[2017-06-26] MEDS ORDERED: IV NORMAL SALINE 1000ML BAG 1,000 ML IV ONE (15:45)
[2017-06-26 16:03] LABS: BILIRUBIN,URINE NEGATIVE (NEG); GLUCOSE,URINE NEGATIVE (NEG); NITRITE,URINE NEGATIVE (NEG); PH,URINE 5.5; PROTEIN,URINE NEGATIVE (NEG-TRACE); UROBILINOGEN,URINE 0.2 mg/dL (0.2 mg/dL)
[2017-06-26 16:13] LABS: BACTERIA,URINE 0 /HPF (0-FEW); RBC,URINE 0 /HPF (0-2); WBC,URINE OCC /HPF (0-4)
[2017-06-26] MEDS ORDERED: ONDANSETRON PF 4 MG/2 ML VIAL. IV PRN (16:15)
[2017-06-26] MEDS ORDERED: ACETAMINOPHEN 325 MG TABLET. PO PRN (16:15)
[2017-06-26] MEDS: IV NORMAL SALINE 1000ML BAG 1,000 ML IV SCH (17:13)
[2017-06-26] MEDS ORDERED: RIVA20TA2 PO (17:18)
[2017-06-26] MEDS ORDERED: FLUO20CA16 PO (17:18)
[2017-06-26] MEDS: traMADol 50 MG TABLET PO SCH (21:49)
[2017-06-27] VITALS (16 sets, daily range): BP systolic 85–135; BP diastolic 50–81
[2017-06-27] MEDS: IV NORMAL SALINE 1000ML BAG 1,000 ML IV SCH ×2 (00:02→05:33)
[2017-06-27 05:48] LABS: BASO % 1 % (0-3); EOS % 2 % (0-3); HEMATOCRIT 38.2 % (39.0-53.0); HEMOGLOBIN 12.8 g/dL (13.0-17.5); LYMPH # 1.7 x10^3/uL (1.0-4.8); LYMPH % 18 % (24-48); MEAN CORPUSCULAR HEMOGLOBIN 32 pg (25-35); MEAN CORPUSCULAR HGB CONC 33 g/dL (31-37); MEAN CORPUSCULAR VOLUME 96 fL (79-100); MONO % 9 % (0-9); NEUT % 71 % (31-73); PLATELET COUNT 158 x10^3/uL (140-400); RED BLOOD COUNT 3.98 x10^6/uL (4.30-5.70); RED CELL DISTRIBUTION WIDTH 14.5 % (11.5-14.5); WHITE BLOOD COUNT 9.4 x10^3/uL (4.0-11.0)
[2017-06-27 05:49] LABS: CALCIUM 8.3 mg/dL (8.5-10.1); CREATININE 1.2 mg/dL (0.7-1.3); GFR 58.1; POTASSIUM 3.8 mmol/L (3.5-5.1)
--- NOTE | 2017-06-27 09:07 | PDOC ---
Provider Note Provider Note [id number] VERENICE BLOOD MD Jun 27, 2017 09:07
[2017-06-27] MEDS: CARVEDILOL 6.25 MG TABLET. PO SCH ×2 (09:19→17:12)
[2017-06-27] MEDS: FLUoxetine HCL 20 MG CAPSULE PO SCH (09:19)
[2017-06-27] MEDS: traMADol 50 MG TABLET PO SCH ×3 (09:19→20:18)
[2017-06-27] MEDS: ASPIRIN CHEWABLE 81 MG TABLET. PO SCH (09:19)
[2017-06-27] MEDS: CLOPIDOGREL BISULFATE 75 MG TABLET PO SCH (09:20)
[2017-06-27] MEDS: FINASTERIDE 5 MG TABLET. PO SCH (09:20)
[2017-06-27] MEDS: LEVOTHYROXINE 50 MCG TABLET PO SCH (09:20)
--- NOTE | 2017-06-27 09:30 | HP ---
ADMIT DATE: 06/27/2017 CHIEF COMPLAINT: Vomiting and diarrhea. HISTORY OF PRESENT ILLNESS: An 81-year-old white male who recently had a stroke with residual aphasia, has a history of cardiomyopathy and coronary artery disease. He developed nausea, vomiting and then some nonbloody diarrhea on the day of admission and no one else has been ill and his has had similar food without any problems. He was mildly hypotensive in the Emergency Room and has been on IV saline overnight and is feeling better and able to tolerate clear liquids. PAST MEDICAL HISTORY: Well documented, prior stents and coronary bypass, stroke about 2 months ago, multiple medications including aspirin and Plavix. ALLERGIES: No drug allergies. SOCIAL HISTORY: Disabled from his right-sided hemiparesis. Nondrinker, nonsmoker. FAMILY HISTORY: Unremarkable. REVIEW OF SYSTEMS: No other problems. PHYSICAL EXAMINATION: ENT: All within normal limits. NECK: No bruits, nodes or masses. LUNGS: Clear. CARDIOVASCULAR: Regular rate consistent with sinus at this time. No murmurs heard. ABDOMEN: Soft, benign and nontender. EXTREMITIES: Good pedal and radial pulses. Skin turgor only slightly decreased. No edema is noted. NEUROLOGIC: Aphasic, right hemiparesis is stable, no acute findings, oriented x 4 and alert. IMPRESSION: Likely gastrointestinal fluid with secondary dehydration, aggravated by cardiac meds. PLAN: IV saline. We held advance diet and likely discharge in a.m. VERENICE BLOOD MD DR: ALEXANDRA/christiano JOB#: [id number] / [id number]
[2017-06-28 03:00] VITALS: BP 127/71
[2017-06-28] MEDS: LEVOTHYROXINE 50 MCG TABLET PO SCH (05:11)
--- NOTE | 2017-06-28 08:37 | DISCH ---
DISCHARGE INSTRUCTIONS Condition on Discharge Condition on Discharge: Stable Activity After Discharge Activity Instructions for Disc: No restrictions Diet after Discharge Diet after Discharge: Regular Follow-Up Follow up with: as scheduled VERENICE BLOOD MD Jun 28, 2017 08:37
--- NOTE | 2017-06-28 08:39 | PDOC ---
Provider Note Provider Note [id number] VERENICE BLOOD MD Jun 28, 2017 08:39
[2017-06-28] MEDS: FINASTERIDE 5 MG TABLET. PO SCH (08:52)
[2017-06-28] MEDS: CLOPIDOGREL BISULFATE 75 MG TABLET PO SCH (08:52)
[2017-06-28] MEDS: traMADol 50 MG TABLET PO SCH (08:52)
[2017-06-28] MEDS: ASPIRIN CHEWABLE 81 MG TABLET. PO SCH (08:52)
[2017-06-28 08:53] VITALS: BP 127/71
[2017-06-28] MEDS: CARVEDILOL 6.25 MG TABLET. PO SCH (08:53)
[2017-06-28] MEDS: FLUoxetine HCL 20 MG CAPSULE PO SCH (08:53)
--- NOTE | 2017-06-28 15:47 | DS ---
DATE OF DISCHARGE: 06/28/2017 HOSPITAL SUMMARY: Vomiting, diarrhea, fatigue and weakness at home and came in with signs of what appeared to be viral gastroenteritis. CBC, chemistry profile, and urine were all clear. Culture was negative and C. diff was never obtained as his diarrhea seemed to luis. His blood pressure recovered with some fluids. He is eating and drinking and comfortable to be followed as an outpatient. FINAL DIAGNOSIS: Acute viral gastroenteritis. OPERATIONS, PROCEDURES, COMPLICATIONS, AND CONSULTATIONS: None. DISPOSITION: All home meds remain the same. Office followup is scheduled. Regular diet with sodium restriction as he is a cardiac patient. VERENICE BLOOD MD DR: ALEXANDRA/christiano JOB#: [id number] / [id number]
== END 2017-06-28 10:14 | disposition home or self-care (01) | DRG 392 ==
LOC: ER 13:56 → 1 WEST ICU 15:04 → 5 NORTH 06-27 15:15
PROVIDERS: ADMIT Family Medicine; ATTEND Family Medicine
DX: A08.4 Viral intestinal infection, unspecified (principal); I42.9 Cardiomyopathy, unspecified; I69.951 Hemiplegia and hemiparesis following unspecified cerebrovascular disease affecting right dominant side; I50.9 Heart failure, unspecified; I48.91 Unspecified atrial fibrillation; E86.0 Dehydration; I13.0 Hypertensive heart and chronic kidney disease with heart failure and stage 1 through stage 4 chronic kidney disease, or unspecified chronic kidney disease; I25.10 Atherosclerotic heart disease of native coronary artery without angina pectoris; I25.2 Old myocardial infarction; Z90.49 Acquired absence of other specified parts of digestive tract; Z95.5 Presence of coronary angioplasty implant and graft; Z79.02 Long term (current) use of antithrombotics/antiplatelets; Z79.82 Long term (current) use of aspirin; N18.3 Chronic kidney disease, stage 3 (moderate)
CPT/HCPCS: 36415; 51701; 74022; 80048; 80076; 81001; 82553; 83690; 84484; 85025; 87641; 93005; 96361; 96374; J2405; J7030; 99285-25

== ENCOUNTER → 2019-06-20 | Outpatient (CLI) | payer OTHER ==
[2019-04-06 11:00] VITALS: BP 101/64
[~2019-06-20] MED LIST changes: +ACET500T68 PO; -AMIO200T2 PO; +AMIO200T4 PO; +ASCO500T3 PO; -ASPI81TA44 PO; +ASPI81TA59 PO; +CARV12.511 PO; -CARV12.52 PO; +CARV6.2511 PO; -CARV6.252 PO; +FLUO20CA16 PO; +INSU100I13 SQ; +INSU100V31 SQ; +MULT1TAB52 PO; +OMEP40CA45 PO; -OMEP40CA5 PO; +RIVA20TA2 PO; +TAMS0.4C97 PO
--- NOTE | 2019-06-20 14:40 | CARD ---
MR#: [id number] Date of Study: 06/20/2019 Ordering Physician: SIMONE BULLOCK, Referring Physician: SIMONE BULLOCK, Emilie: Hollie Castaneda APPROVED REPORT EXAM: Two-dimensional and M-mode echocardiogram with Doppler and color Doppler. Other Information Quality : AverageHR: 69bpm INDICATION Cardiomyopathy 2D DIMENSIONS RVDd3.2 (2.9-3.5cm)Left Atrium(2D)4.2 (1.6-4.0cm) IVSd2.1 (0.7-1.1cm)Aortic Root(2D)3.1 (2.0-3.7cm) LVDd3.7 (3.9-5.9cm)LVOT Diameter2.1 (1.8-2.4cm) PWd1.3 (0.7-1.1cm)LVDs2.8 (2.5-4.0cm) FS (%) 25.8 %SV30.7 ml LVEF(%)51.6 (>50%) Aortic Valve AoV Peak Julian.104.5cm/sAoV VTI19.8cm AO Peak GR.4.4mmHgLVOT Peak Julian.46.4cm/s LVOT VTI 7.92cmAO Mean GR.3mmHg ALISON (VMAX)1.98se8PRJ (VTI)1.37cm2 Mitral Valve MV E Nvycdpad28.6cm/sMV E Peak Gr.68mmHg MV DECEL PVBO558quUJ A Yrknupof50.9cm/s MV YVV35whN/A Ratio3.2 MVA (PHT)3.44cm2 TDI E/Lateral E'12.2E/Medial E'20.9 Pulmonary Valve PV Peak Eqymnyqx49.4cm/sPV Peak Grad.2mmHg Tricuspid Valve TR P. Dmwxpmjm883wa/sRAP RQVWXIHN70rvMl TR Peak Gr.69lxKpXGYX37uyWh Pulmonary Vein S1 Lkxzroqe38.1cm/sD2 Ilcnyrvi73.4cm/s PVa [id number] LEFT VENTRICLE The left ventricle is normal size. There is mild to moderate concentric left ventricular hypertrophy. The ejection fraction is severely impaired. The Ejection Fraction is 20-25%. There is severe global hypokinesis. Transmitral Doppler flow pattern is Grade III-reversible restrictive diastolic dysfuncti on. RIGHT VENTRICLE The right ventricle is normal size. The right ventricular systolic function is normal. ATRIA The left atrium is mildly to moderately dilated. The right atrium is mildly to moderately dilated. Th e interatrial septum is intact with no evidence for an atrial septal defect or patent foramen ovale a s noted on 2-D or Doppler imaging. AORTIC VALVE The aortic valve is thickened but opens well. Doppler and Color Flow revealed no significant aortic r egurgitation. There is no significant aortic valvular stenosis. MITRAL VALVE The mitral valve is normal in structure and function. There is no evidence of mitral valve prolapse. There is no mitral valve stenosis. Doppler and Color Flow revealed no mitral valve regurgitation note d. TRICUSPID VALVE The tricuspid valve is normal in structure and function. Doppler and Color Flow revealed no tricuspid valve regurgitation noted. There is no tricuspid valve prolapse or vegetation. There is no tricuspid valve stenosis. PULMONIC VALVE Doppler and Color Flow revealed no pulmonic valvular regurgitation. There is no pulmonic valvular rubio nosis. GREAT VESSELS The aortic root is normal in size. There is mild dilatation of the sinus of valsalva. The ascending a malik is borderline dilated. The IVC is dilated and collapses <50% with inspiration. PERICARDIAL EFFUSION There is no pleural effusion. There is no evidence of significant pericardial effusion. Critical Notification Critical Value: No <Conclusion> The ejection fraction is severely impaired. The Ejection Fraction is 20-25%. There is severe global hypokinesis. Signed by : Anton Raya, Electronically Approved : 06/20/2019 14:40:31
== END | disposition home or self-care (01) ==
LOC: ECHO 13:16
PROVIDERS: ATTEND Internal Medicine Cardiovascular Disease
DX: I11.9 Hypertensive heart disease without heart failure (principal); I42.9 Cardiomyopathy, unspecified
CPT/HCPCS: 93306

== ENCOUNTER → 2020-02-27 | Outpatient (CLI) | payer MEDICARE ==
[2019-12-12 14:50] VITALS: BP 113/66
[~2020-02-27] MED LIST changes: +CONTRAST GIVEN. MC PRN; +FURO-68 PO; +IOHEXOL 240 MG/ML 50ML VIAL. PO ONE; +IOHEXOL 300 MG/ML 100ML VIAL. IV ONE; +LEVO75TA5 PO; +MELA10TA7 PO; +MULT-445 PO; -MULT1TAB52 PO; +PANT40TA77 PO; +SACU1TAB PO; +TRAM100T2 PO
--- NOTE | 2020-02-28 08:15 | RAD ---
EXAM: CT Abdomen and Pelvis with IV contrast INDICATION: Reason: CONJUGATED HYPERBILIRUBINEMIA / Spl. Instructions: [id number] 75ML / History: TECHNIQUE: Multi-detector row CT images were acquired from the lung bases through the abdomen and pelvis with the use of IV contrast. Sagittal and coronal images were acquired from the transaxial data. All CT scans performed at this facility utilize dose optimization techniques as appropriate to the exam, including the following: Automated exposure control and adjustment of the mA and/or KV according to patient size (this includes techniques or standardized protocols for targeted exams where dose is indication/reason for exam). IV CONTRAST: Administered ORAL CONTRAST: Administered COMPARISON: Noncontrast abdomen pelvis CT 09/28/2016 FINDINGS: LOWER CHEST: Small bilateral pleural effusions are new. Heart is increased in size and is moderately enlarged. Dense coronary calcifications are present. LIVER: Unremarkable BILIARY SYSTEM: Gallbladder surgically absent. Bile ducts are not dilated. PANCREAS: Unremarkable SPLEEN: Unremarkable ADRENALS: Unremarkable KIDNEYS & URETERS: Inferior pole left renal 4.8 cm cyst requires no additional imaging follow-up. No radiopaque stones or hydronephrosis. BLADDER: Unremarkable REPRODUCTIVE ORGANS: Enlarged prostate measuring 5.2 cm diameter. GASTROINTESTINAL: Stomach and small bowel are unremarkable. Large bowel shows moderate stool throughout the large bowel with extensive colonic diverticulosis primarily in the sigmoid colon. The appendix is normal. MESENTERY/PERITONEUM/RETROPERITONEUM: Unremarkable VASCULAR: Scattered atherosclerotic calcifications. No aneurysm. Reflux of iodinated contrast into dilated hepatic veins is present. LYMPH NODES: No adenopathy OSSEOUS & SOFT TISSUES: Lumbar spinal degenerative changes with levoscoliosis. No acute or aggressive osseous lesions. IMPRESSION: Postcholecystectomy changes with no evidence of biliary dilation. There are findings of heart failure with worsening cardiomegaly and bilateral pleural effusions. Electronically signed by: Christina Son MD (02/28/2020 8:13 AM) [id number]
== END | disposition home or self-care (01) ==
LOC: CT 13:32
PROVIDERS: ATTEND Physician Assistant Medical
DX: N28.1 Cyst of kidney, acquired (principal); N40.0 Benign prostatic hyperplasia without lower urinary tract symptoms; E80.6 Other disorders of bilirubin metabolism; R17 Unspecified jaundice; J90 Pleural effusion, not elsewhere classified; I51.7 Cardiomegaly; I25.10 Atherosclerotic heart disease of native coronary artery without angina pectoris; M47.816 Spondylosis without myelopathy or radiculopathy, lumbar region; M41.86 Other forms of scoliosis, lumbar region; Z90.49 Acquired absence of other specified parts of digestive tract
CPT/HCPCS: 74177; Q9966; Q9967

== ENCOUNTER 2020-08-12 16:49 | Inpatient (IN) | payer MEDICARE ==
[~2020-08-12] VITALS: Ht 172.7 cm; Wt 83.6 kg
[~2020-08-12 16:49] MED LIST changes: -AMIO200T4 PO; +AMIO200T6 PO; -CONTRAST GIVEN. MC PRN; -IOHEXOL 240 MG/ML 50ML VIAL. PO ONE; -IOHEXOL 300 MG/ML 100ML VIAL. IV ONE; -LISI-338 PO; +LISI-517 PO; +LISI10TA16 PO; -LISI10TA2 PO; -OMEP40CA45 PO; +OMEP40CA7 PO
--- NOTE | 2020-08-12 18:14 | PHYS DOC ---
Past Medical History Past Medical History: A-Fib, CHF, CVA, Hypertension, [place], Pneumonia Past Surgical History: Appendectomy, Cholecystectomy Additional Past Surgical Histo: CARDIAC STENTS Smoking Status: Former Smoker Alcohol Use: None Drug Use: None General Adult EDM: Chief Complaint: SHORTNESS OF BREATH HPI: HPI: Patient is a 85-year-old male who presents via POV for shortness of breath. Patient reports onset was 2 weeks ago without any known inciting event or trauma. States he has had increased shortness of breath, paroxysmal dyspnea and lower extremity edema. Reports he had his diuretic stopped approximately 1 week ago as "they said I did not need it anymore". Reports since being off diuretic he has had continued progression of shortness of breath with exertion, laying flat and ongoing lower extremity edema. No fever, COVID-19 contact, syncope or falls, chest pain, ripping or tearing torso pain, no cough, no abdominal pain or urinary symptoms. Reports otherwise he has been at his baseline health, has been taking all of his daily medications as prescribed. Has history of atrial fibrillation and currently on Xarelto, also has known history of congestive hea rt failure with unknown ejection fraction. Patient has prior deficits from CVA without any change from his baseline. He has full capacity on evaluation, confirms he is a full code Review of Systems: Review of Systems: Fourteen body systems of review of systems have been reviewed. See HPI for pertinent positives and negative responses, other palomares all other systems are negative, non-pertinent or non-contributory Heart Score: HEART Score for Chest Pain: HEART Score for Chest Pain Response (Comments) Value History Slighlty/Non-Suspicious 0 ECG Nonspecific Repolarizatio 1 Age > 65 2 Risk Factors >3 Risk Factors or Hx CAD 2 Troponin >3 x Normal Limit 2 Total 7 Risk Factors: Risk Factors: DM, Current or recent (<one month) smoker, HTN, HLP, family history of CAD, obesity. Risk Scores: Score 0 - 3: 2.5% MACE over next 6 weeks - Discharge Home Score 4 - 6: 20.3% MACE over next 6 weeks - Admit for Clinical Observation Score 7 - 10: 72.7% MACE over next 6 weeks - Early Invasive Strategies Current Medications: Current Medications Medications (Trade) Dose Ordered Sig/Nazia Start Time Stop Time Status Last Admin Dose Admin Aspirin (Aspirin Chewable) 162 mg 1X ONCE 08/12/20 18:15 08/12/20 18:16 DC 08/12/20 18:53 162 MG Allergies: Allergies: Allergies Coded Allergies Type Severity Reaction Last Updated Verified No Known Drug Allergies 09/26/16 No Physical Exam: PE: Constitutional: Well developed, well nourished, no acute distress, non-toxic appearance. HENT: Normocephalic, atraumatic, bilateral external ears normal, oropharynx moist, no oral exudates, nose normal. Poor dentition, nasal cannula in place Eyes: PERRLA, EOMI, conjunctiva normal, no discharge. Neck: Normal range of motion, no tenderness, supple, no stridor. Cardiovascular: Rate controlled atrial fibrillation, no rubs or gallops Lungs & Thorax: No respiratory distress, no accessory muscle use, Rales present in bilateral bases without increased work of breathing Abdomen: Bowel sounds normal, soft, no tenderness, no masses, no pulsatile masses. Nonsurgical abdomen, no peritoneal signs Skin: Warm, dry, no erythema, no rash. Superficial skin breakdown on ventral portion of second digit of the left foot, onychomycosis present on bilateral toenails Back: No tenderness, no CVA tenderness. Extremities: No tenderness, no cyanosis, no clubbing, ROM intact, 3+ pitting edema to left lower extremity, 2+ pitting edema to right lower extremity. Per patient, due to history of left lower extremity injury he typically has more edema in that leg versus contralateral leg, negative Homans' sign Neurologic: Alert and oriented X 3, grossly normal motor & sensory function, focal deficits from prior CVA present but at baseline, dysarthria from prior CVA present Psychologic: Affect normal, judgement normal, mood normal. Current Patient Data: Labs: Laboratory Tests Test 08/12/20 18:05 08/12/20 18:56 08/12/20 23:45 White Blood Count 6.6 x10^3/uL Red Blood Count 5.28 x10^6/uL Hemoglobin 17.0 g/dL Hematocrit 50.8 % Mean Corpuscular Volume 96 fL Mean Corpuscular Hemoglobin 32 pg Mean Corpuscular Hemoglobin Concent 34 g/dL Red Cell Distribution Width 15.8 % Platelet Count 174 x10^3/uL Neutrophils (%) (Auto) 77 % Lymphocytes (%) (Auto) 12 % Monocytes (%) (Auto) 9 % Eosinophils (%) (Auto) 1 % Basophils (%) (Auto) 1 % Neutrophils # (Auto) 5.1 x10^3/uL Lymphocytes # (Auto) 0.8 x10^3/uL Monocytes # (Auto) 0.6 x10^3/uL Eosinophils # (Auto) 0.1 x10^3/uL Basophils # (Auto) 0.1 x10^3/uL Sodium Level 128 mmol/L Potassium Level 3.5 mmol/L Chloride Level 94 mmol/L Carbon Dioxide Level 24 mmol/L Anion Gap 10 Blood Urea Nitrogen 38 mg/dL Creatinine 1.4 mg/dL Estimated GFR (Cockcroft-Gault) 48.2 BUN/Creatinine Ratio 27 Glucose Level 132 mg/dL Calcium Level 9.1 mg/dL Total Bilirubin 5.2 mg/dL Aspartate Amino Transf (AST/SGOT) 73 U/L Alanine Aminotransferase (ALT/SGPT) 35 U/L Alkaline Phosphatase 63 U/L Troponin I Quantitative 0.159 ng/mL 0.170 ng/mL QL-Ynn-R-Type Natriuretic Peptide 9782 pg/mL Total Protein 6.7 g/dL Albumin 2.5 g/dL Albumin/Globulin Ratio 0.6 Current Medications Medications (Trade) Dose Ordered Sig/Nazia Route PRN Reason Start Time Stop Time Status Last Admin Dose Admin Aspirin (Aspirin Chewable) 162 mg 1X ONCE PO 08/12/20 18:15 08/12/20 18:16 DC 08/12/20 18:53 162 MG Vital Signs: Vital Signs Date Time Temp Pulse Resp B/P (MAP) Pulse Ox O2 Delivery O2 Flow Rate FiO2 08/12/20 23:00 98.1 60 102/76 (85) 97 2.0 98.1 08/12/20 21:50 98.1 60 22 102/76 (85) 97 Nasal Cannula 2.0 98.1 08/12/20 21:50 Nasal Cannula 3.0 08/12/20 21:15 90 18 101/76 (84) 99 Nasal Cannula 3.0 08/12/20 20:15 70 18 103/70 (81) 100 Nasal Cannula 3.0 08/12/20 19:15 74 18 106/74 (85) 100 Nasal Cannula 3.0 08/12/20 18:15 97.3 70 25 104/80 (88) 2 Nasal Cannula 97.3 EKG: EKG: EKG ordered and interpreted by myself at 1800 hrs. as atrial fibrillation with ventricular rate of 90 bpm, prolonged QRS at 134 and prolonged QTC at 499 otherwise intervals unremarkable, left axis deviation, T wave inversions noted in leads I otherwise no acute ischemic findings, no STEMI Radiology/Procedures: Radiology/Procedures: EXAM: CHEST 1 VIEW History: Shortness of breath, rales COMPARISON: 12/09/2019 TECHNIQUE: Single portable radiograph of the chest Findings/ impression: Moderate cardiomegaly. Diffuse moderate prominent appearing bilateral interstitial lung markings likely chronic interstitial changes. Mild bibasilar lung airspace opacities likely atelectasis or infiltrates. Electronically signed by: Kris Hodge MD (08/12/2020 7:17 PM) [id number] Course & Med Decision Making: Course & Med Decision Making Pertinent Labs and Imaging studies reviewed. (See chart for details) Discussed most likely diagnosis of acute exacerbation of CHF with subsequent elevated troponin in patient without active chest pain I discussed with patient need for hospital admission for continued medical management that will include continued diuresis and likely cardiology consultation for elevated troponin. No indication to activate Nurse Advocate at present, will continue medical management overnight I contacted hospitalist and discussed case at length, patient was admitted under care of Dr. Badillo for further inpatient medical management I updated patient and chatted with on phone, both were amenable for hospital admission for continued inpatient medical management Critical Care Time This patient required critical care. Due to the fact that the patient required a significant amount of one on one physician - patient contact time, ordering and review of studies, arranging urgent treatment with development of a management plan, evaluation of patients response to treatment with frequent reassessments, and discussions with other providers this patient required 40 minutes of critical care time. Critical care time was indicated due to the inherent instability and/or potential for instability in this patient. The critical care time that is allocated to this patient is above and beyond any time spent on any other billable procedures performed on this patient. Dragon Disclaimer: Dragon Disclaimer: This electronic medical record was generated, in whole or in part, using a voice recognition dictation system. Departure Departure Impression: Primary Impression: Acute on chronic congestive heart failure Additional Impressions: Elevated troponin Chronic a-fib Hyponatremia Disposition: ADMITTED INPT THIS HOSP Admitting Physician: Verenice Blood Condition: STABLE Referrals: VERENICE BLOOD MD (PCP) AGUSTIN BURDICK DO Aug 12, 2020 18:14
[2020-08-12] MEDS ORDERED: ASPIRIN CHEWABLE 81 MG TABLET. PO ONE (18:15)
[2020-08-12 18:22] LABS: BASO # 0.1 x10^3/uL (0.0-0.2); BASO % 1 % (0-3); EOS # 0.1 x10^3/uL (0.0-0.7); EOS % 1 % (0-3); HEMATOCRIT 50.8 % (39.0-53.0); LYMPH # 0.8 x10^3/uL (1.0-4.8); LYMPH % 12 % (24-48); MEAN CORPUSCULAR HEMOGLOBIN 32 pg (25-35); MEAN CORPUSCULAR HGB CONC 34 g/dL (31-37); MEAN CORPUSCULAR VOLUME 96 fL (79-100); MONO # 0.6 x10^3/uL (0.0-1.1); MONO % 9 % (0-9); NEUT # 5.1 x10^3/uL (1.8-7.7); NEUT % 77 % (31-73); PLATELET COUNT 174 x10^3/uL (140-400); RED BLOOD COUNT 5.28 x10^6/uL (4.30-5.70); RED CELL DISTRIBUTION WIDTH 15.8 % (11.5-14.5); WHITE BLOOD COUNT 6.6 x10^3/uL (4.0-11.0)
--- NOTE | 2020-08-12 19:19 | RAD ---
EXAM: CHEST 1 VIEW History: Shortness of breath, rales COMPARISON: 12/09/2019 TECHNIQUE: Single portable radiograph of the chest Findings/ impression: Moderate cardiomegaly. Diffuse moderate prominent appearing bilateral interstitial lung markings like ly chronic interstitial changes. Mild bibasilar lung airspace opacities likely atelectasis or infiltr ates. Electronically signed by: Kris Hodge MD (08/12/2020 7:17 PM) [id number]
[2020-08-12 19:48] LABS: CALCIUM 9.1 mg/dL (8.5-10.1); CREATININE 1.4 mg/dL (0.7-1.3); GFR 48.2; POTASSIUM 3.5 mmol/L (3.5-5.1)
[2020-08-12 19:56] LABS: ALBUMIN 2.5 g/dL (3.4-5.0); ALBUMIN/GLOBULIN RATIO 0.6 (1.0-1.7); TOTAL BILIRUBIN 5.2 mg/dL (0.2-1.0); TOTAL PROTEIN 6.7 g/dL (6.4-8.2)
[2020-08-12] MEDS ORDERED: FUROSEMIDE 40 MG/4 ML VIAL. IVP ONE (20:00)
[2020-08-12] MEDS ORDERED: NITROGLYCERIN SUBLINGUAL 0.4 MG BOTTLE OF 25. SL PRN (20:00)
[2020-08-12 21:50] VITALS: BP 102/76
--- NOTE | 2020-08-12 22:43 | NUR ---
Pt arrived to room 206 per cart, pt assisted to bed with standby assist pt oriented to surroundings and call light vs obtained and stable assessment completed poc explained pt denied pain at this time. Call placed to pt maxi for pt home medication listand for further admit orders will resume care and continue to monitor pt. Call light placed in reach bed alarm set.
[2020-08-12] MEDS ORDERED: TRAM100T2 PO (22:56)
[2020-08-12 23:00] VITALS: BP 102/76
[2020-08-12] MEDS ORDERED: traMADol 50 MG TABLET PO PRN (23:15)
[2020-08-13 02:59] VITALS: BP 112/79
[2020-08-13] MEDS ORDERED: LEVOTHYROXINE 75 MCG TABLET PO SCH (06:00)
[2020-08-13 07:00] VITALS: BP 121/77
[2020-08-13] MEDS: FLUoxetine HCL 20 MG CAPSULE PO SCH (08:43)
[2020-08-13] MEDS: OMEGA-3 FATTY ACIDS/FISH OIL 1,000 MG CAPSULE. PO SCH (08:43)
[2020-08-13] MEDS: TAMSULOSIN 0.4 MG CAP.ER.24H. PO SCH (08:43)
[2020-08-13] MEDS: MULTIVITAMIN with MINERAL TABLET. PO SCH (08:43)
[2020-08-13] MEDS: ASCORBIC ACID 500 MG TABLET PO SCH (08:44)
[2020-08-13] MEDS: traMADol 50 MG TABLET PO SCH ×3 (08:44→21:28)
[2020-08-13] MEDS: ASPIRIN CHEWABLE 81 MG TABLET. PO SCH (08:44)
[2020-08-13] MEDS: FINASTERIDE 5 MG TABLET. PO SCH (08:44)
[2020-08-13] MEDS: CARVEDILOL 6.25 MG TABLET. PO SCH ×2 (08:45→17:55)
[2020-08-13] MEDS ORDERED: RIVAROXABAN 10 MG TABLET. PO SCH (09:00)
--- NOTE | 2020-08-13 09:13 | PDOC ---
Provider Note Date of Service: DATE: 08/13/20 TIME: 09:10 Provider Note [id number] Justifications for Admission Other Justification VERENICE BLOOD MD Aug 13, 2020 09:13
[2020-08-13] MEDS: FUROSEMIDE 40 MG/4 ML VIAL. IVP SCH ×2 (09:57→14:09)
[2020-08-13 10:07] LABS: ALBUMIN 2.3 g/dL (3.4-5.0); DIRECT BILIRUBIN 3.7 mg/dL (0.0-0.2); TOTAL BILIRUBIN 4.9 mg/dL (0.2-1.0); TOTAL PROTEIN 6.3 g/dL (6.4-8.2)
[2020-08-13 11:00] VITALS: BP 119/87
--- NOTE | 2020-08-13 11:25 | HP ---
ADMIT DATE: 08/13/2020 CHIEF COMPLAINT: Shortness of breath and swelling. HISTORY OF PRESENT ILLNESS: An 85-year-old white male with a known severe cardiomyopathy, last ejection fraction around 20%. He has had increasing shortness of breath and swelling in the last week to 10 days. His Lasix was held about a week ago after he was seen by Cardiology and felt to be really tired, but this did not improve him. He was seen in the office 2-3 days prior to admission and all laboratory studies were generally unremarkable except for mildly elevated TSH. Chest x-ray showed evidence of pleural effusions and congestive heart failure and has been given IV Lasix and admitted. The only other abnormality is elevated bilirubin of 5.2 where about 9 months ago it was 2.3 CT scan at that time showed no acute changes and he has had a cholecystectomy. PAST MEDICAL HISTORY: Well documented in the old record. ALLERGIES: No allergies are known. HE IS ON XARELTO FOR ATRIAL FIBRILLATION, WHICH IS CAUSING A STROKE WITH SECONDARY HEMIPLEGIA AND APHASIA. SOCIAL HISTORY: Nonsmoker, not active, , nondrinker. FAMILY HISTORY: Unremarkable. REVIEW OF SYSTEMS: Unremarkable. OBJECTIVE: ENT: Very mild scleral icterus is noted. Mild pallor is noted. NECK: No masses, nodes or bruits. LUNGS: Decreased breath sounds at both bases. CARDIOVASCULAR: Irregular rate consistent with known atrial fibrillation. No S3 is heard. ABDOMEN: Soft, benign and nontender. EXTREMITIES: He has 2+ pretibial edema bilaterally up to below the knees. NEUROLOGIC: The hemiparesis and aphasia is noted. No acute change. ASSESSMENT: 1. Acute on chronic congestive heart failure reduced ejection fraction type. 2. Chronic atrial fibrillation, rate controlled. 3. Mild hypothyroidism, iatrogenic. 4. Hyperbilirubinemia, may be from passive congestion, but further evaluation indicated. PLAN: Evaluate ____ direct and indirect fractions and will do a sonogram looking at the bile ducts. IV Lasix b.i.d. We will confirm his code status with him as his cardiac condition is certainly a very significant. We will raises levothyroxine dose from 75-88 mcg as well. VERENICE BLOOD MD DR: ALEXANDRA/christiano JOB#: [id number] / [id number]
--- NOTE | 2020-08-13 11:30 | NUR ---
SS following for discharge planning. SS reviewed pt chart and discussed with pt RN. Pt is from home with family and is currently requiring oxygen at three liters nasal canula. Pt has home oxygen. Pt having abdominal ultrasound today. Diuresing today. SS will continue to follow for discharge planning.
[2020-08-13 15:00] VITALS: BP 117/69
--- NOTE | 2020-08-13 16:14 | NUR ---
Wound Care Pt having surgery today, will assess tomorrow.
--- NOTE | 2020-08-13 16:28 | RAD ---
US ABDOMEN LTD History: Reason: jaundice / Spl. Instructions: / History: Comparison: February 27, 2020. Technique: Transabdominal ultrasound images are obtained of the right upper quadrant. Findings: Liver is normal in echogenicity. Portal flow is hepatopedal. Prior cholecystectomy. Common bile duct measures 7.2 mm in diameter. Visualized pancreas not well seen due to overlying bowel gas. The right kidney not well evaluated due to overlying structures. Patent IVC. Aorta not well seen due to overlying bowel gas. Right pleural effusion. Sliver of perihepatic ascites. IMPRESSION: 1. Sliver of perihepatic ascites. 2. Right pleural effusion. 3. Prior cholecystectomy. Electronically signed by: Gordon Moncada DO (08/13/2020 4:26 PM) [facility]
[2020-08-13 19:00] VITALS: BP 97/66
--- NOTE | 2020-08-13 19:50 | NUR ---
Pt in bed assessment completed vss poc explained pt denied pain call light in reach and bed alarm set. Pt reminded to call for assistance prior to getting out of bed.
[2020-08-13] MEDS: ATORVASTATIN CALCIUM 10 MG TABLET. PO SCH (21:28)
[2020-08-13 22:56] VITALS: BP 103/60
[2020-08-14 03:00] VITALS: BP 92/66
[2020-08-14] MEDS: LEVOTHYROXINE 88 MCG TABLET PO SCH (05:40)
[2020-08-14 06:01] LABS: CREATININE 1.5 mg/dL (0.7-1.3); GFR 44.5
[2020-08-14 06:06] LABS: POTASSIUM 2.9 mmol/L (3.5-5.1)
[2020-08-14 07:00] VITALS: BP 89/62
[2020-08-14] MEDS ORDERED: POTASSIUM CHLORIDE 10 MEQ TABLET.ER. PO SCH (08:00)
[2020-08-14] MEDS: RIVAROXABAN 15 MG TABLET. PO SCH (08:54)
[2020-08-14] MEDS: OMEGA-3 FATTY ACIDS/FISH OIL 1,000 MG CAPSULE. PO SCH (08:54)
[2020-08-14] MEDS: FUROSEMIDE 40 MG/4 ML VIAL. IVP SCH ×2 (08:54→15:07)
[2020-08-14] MEDS: ASPIRIN CHEWABLE 81 MG TABLET. PO SCH (08:54)
[2020-08-14] MEDS: CARVEDILOL 6.25 MG TABLET. PO SCH ×2 (08:54→17:41)
[2020-08-14] MEDS: TAMSULOSIN 0.4 MG CAP.ER.24H. PO SCH (08:55)
[2020-08-14] MEDS: FLUoxetine HCL 20 MG CAPSULE PO SCH (08:55)
[2020-08-14] MEDS: traMADol 50 MG TABLET PO SCH ×3 (08:55→21:30)
[2020-08-14] MEDS: FINASTERIDE 5 MG TABLET. PO SCH (08:55)
[2020-08-14] MEDS: ASCORBIC ACID 500 MG TABLET PO SCH (08:55)
[2020-08-14] MEDS: MULTIVITAMIN with MINERAL TABLET. PO SCH (08:55)
--- NOTE | 2020-08-14 09:01 | PDOC ---
Provider Note Date of Service: DATE: 08/14/20 TIME: 08:59 Provider Note vss, bp lower , good output- K+ lower so add more kcl- another day of iv lasix may be adequate- follow K+, rest of meds same- add aldactone Justifications for Admission Other Justification VERENICE BLOOD MD Aug 14, 2020 09:01
--- NOTE | 2020-08-14 10:45 | PDOC2 ---
CARDIAC CONSULT DATE OF CONSULT Date of Consult DATE: 08/14/20 TIME: 10:41 REASON FOR CONSULT Reason for Consult: CHF REFERRING PHYSICIAN Referring Physician: Payam SOURCE Source: Chart review, Patient HISTORY OF PRESENT ILLNESS HISTORY OF PRESENT ILLNESS This is an 85 yo male admitted for complains of SOA. Reports that this has been getting progressive worse in the last 2 weeks. Also his leg has getting more swollen. Positive for PND and orthopnea. He stopped his diuretic about a week ago citing that someone told him to stop this. No fever or chills and no loss of taste or smell. Denies any recent covid exposure. He resides at home with his . Denies any chest pain or palpitations. Otherwise compliant with his medications. He is a full code but has refused placement of defibrillator. Presently his legs are still edematous but is able to lay falt without SOA. PAST MEDICAL HISTORY Past Medical History Cardiovascular: chronic AFIB, CAD, CHF, HTN, Hyperlipidemia, severe NICM Pulmonary: Pneumonia CENTRAL NERVOUS SYSTEM: CVA GI: Diverticulosis, GERD Heme/Onc: Anemia NOS Hepatobiliary: No pertinent hx Psych: No pertinent hx Musculoskeletal: Osteoarthritis Rheumatologic: No pertinent hx Infectious disease: No pertinent hx Renal/: Chronic renal insuff, Benign prostatic enlarg., Other Endocrine: No pertinent hx, Hypothyroidism PAST SURGICAL HISTORY Past Surgical History Arthroscopy, Cholecystectomy, Hernia Repair, Other (coronary stent.) FAMILY HISTORY Family History: Heart Disease SOCIAL HISTORY Smoke: No ALCOHOL: none Drugs: None Lives: with Family CURRENT MEDICATIONS CURRENT MEDICATIONS Current Medications Medications (Trade) Dose Ordered Sig/Nazia Route PRN Reason Start Time Stop Time Status Last Admin Dose Admin Atorvastatin Calcium (Lipitor) 10 mg QHS PO 08/13/20 21:00 08/13/20 21:28 Levothyroxine Sodium (Synthroid) 88 mcg DAILY06 PO 08/14/20 06:00 08/14/20 05:40 Rivaroxaban (Xarelto) 15 mg [id number] PO 08/14/20 08:00 08/14/20 08:54 ALLERGIES ALLERGIES: Coded Allergies: No Known Drug Allergies (Unverified , 09/26/16) ROS Review of System 14 point ROS evaluated with pertinent positives noted per HPI PHYSICAL EXAM General: Alert, Oriented X3, Cooperative, No acute distress HEENT: Atraumatic, Mucous membr. moist/pink Lungs: Other (diffuse faint crackles) Heart: Other (Chronic AFIB rate controlled) Abdomen: Soft, No tenderness Extremities: No cyanosis, Other (mild leg erythema 3+ bilateral calf and feet pitting edema) Skin: Other (toe wound) Neuro: Normal speech, Sensation intact Psych/Mental Status: Mental status NL, Mood NL MUSCULOSKELETAL: Osteoarthritic changes both hands VITALS/I&O VITALS/I&O: Vital Signs Date Time Temp Pulse Resp B/P (MAP) Pulse Ox O2 Delivery O2 Flow Rate FiO2 08/14/20 09:55 20 99 Nasal Cannula 2.0 08/14/20 08:54 73 92/66 08/14/20 07:00 97.8 97.8 I & O 08/13/20 08/13/20 08/14/20 15:00 23:00 07:00 Intake Total 236 ml 500 ml Output Total 1425 ml 1525 ml 550 ml Balance -1189 ml -1525 ml -50 ml LABS Lab: Laboratory Tests Test 08/14/20 05:00 Sodium Level 133 mmol/L (136-145) L Potassium Level 2.9 mmol/L (3.5-5.1) *L Chloride Level 95 mmol/L (98-107) L Carbon Dioxide Level 29 mmol/L (21-32) Anion Gap 9 (6-14) Blood Urea Nitrogen 35 mg/dL (8-26) H Creatinine 1.5 mg/dL (0.7-1.3) H Estimated GFR (Cockcroft-Gault) 44.5 Glucose Level 81 mg/dL (70-99) Calcium Level 9.0 mg/dL (8.5-10.1) Laboratory Tests 08/14/20 05:00 ECHOCARDIOGRAM ECHOCARDIOGRAM <Conclusion> The ejection fraction is severely impaired. The Ejection Fraction is 20-25%. There is severe global hypokinesis. DATE: 06/20/19 1417 STRESS TEST STRESS TEST Conclusion 1. Abnormal baseline EKG but no EKG evidence of stressed induced ischemia. 2. Nuclear imaging shows an apical septal infarct with no significant reversible ischemia. 3. Left ventricular systolic function is severely decreased with an ejection fraction of 20% with global hypokinesis most significant in the apical septal region. 4. Moderate risk Lexiscan nuclear stress test with poor LV function but no significant reversible ischemia. DATE: 04/04/19 0904 ASSESSMENT/PLAN ASSESSMENT/PLAN 1. Acute on chronic diastolic/systolic CHF: likely from lack of diuretics for a week 2. Severe Cardiomyopathy: EF 15-20% 3. Hx of COPD: stable 4. Hypertension; controlled 5. Anemia of chronic disease 6. Moderate pulmonary HTN 7. CAD; Stent to LAD in 2016. clinically stable. CP free 8. Hyperlipidemia 9. Chronic AFIB; rate controlled 10. Hx of CVA with right side hemiparesis 11. SERENA vs CKD 12. Mild troponin elevation: suspect demand mediated 13. Hypothyroidism: on replacement Recommendations Continue lasix therapy. Agree with aldactone. Monitor renal function and may consider ACEi/ARB or entresto Continue secondary prevention measures Xarelto for stroke prevention Discussed about AICD and has refused this so far. Will discuss further at a later date with his primary curriculum development specialist for further consideration Supportive care WILMA VELEZ APRN Aug 14, 2020 10:45
[2020-08-14 11:00] VITALS: BP 105/78
[2020-08-14] MEDS: POTASSIUM CHLORIDE 10 MEQ TABLET.ER. PO SCH ×3 (12:00→17:40)
[2020-08-14] MEDS: SPIRONOLACTONE 25 MG TABLET PO SCH (12:44)
--- NOTE | 2020-08-14 14:23 | CARD ---
MR#: [id number] Date of Study: 08/14/2020 Ordering Physician: WILMA VELEZ, Referring Physician: WILMA VELEZ, Tech: Aysha Rizvi APPROVED REPORT EXAM: Two-dimensional and M-mode echocardiogram with Doppler and color Doppler. Other Information Quality : AverageHR: 84bpm INDICATION Atrial Fibrillation Chest Pain Congestive Heart Failure Elevated Troponin 2D DIMENSIONS RVDd4.2 (2.9-3.5cm)Left Atrium(2D)4.2 (1.6-4.0cm) IVSd1.4 (0.7-1.1cm)Aortic Root(2D)3.6 (2.0-3.7cm) LVDd4.8 (3.9-5.9cm)LVOT Diameter2.1 (1.8-2.4cm) PWd1.2 (0.7-1.1cm)LVDs3.8 (2.5-4.0cm) FS (%) 20.0 %SV44.0 ml LVEF(%)40.9 (>50%) Aortic Valve AoV Peak Julian.83.4cm/sAoV VTI13.9cm AO Peak GR.2.8mmHgLVOT Peak Julian.55.2cm/s LVOT VTI 8.65cmAO Mean GR.1mmHg ALISON (VMAX)1.50bl3CJB (VTI)2.08cm2 AI P 1/2 Yinp862pg Mitral Valve MV E Nxhaxdik88.6cm/sMV DECEL INVT863hm MV A Bfiuotvn58.6cm/sMV OVL13hc E/A Ratio3.4MVA (PHT)5.05cm2 TDI E/Lateral E'10.1E/Medial E'17.1 Pulmonary Valve PV Peak Flvvihsa60.7cm/sPV Peak Grad.2mmHg Tricuspid Valve TR P. Pngwuoqz043vt/sRAP DFWXFXAH7gaZs TR Peak Gr.91tiHfIVSD96isIk LEFT VENTRICLE The left ventricle is normal size. There is moderate concentric left ventricular hypertrophy. The sys tolic function is severely impaired. The Ejection Fraction is 15-20%. There is severe global hypokine sis of the left ventricle. Tissue Doppler imaging reveals severe left ventricular diastolic dysfuncti on. RIGHT VENTRICLE The right ventricle is mildly to moderately dilated. There is normal right ventricular wall thickness . RV Systolic function is moderately reduced. ATRIA The left atrium is severely dilated. The right atrium is moderately dilated. The interatrial septum i s intact with no evidence for an atrial septal defect or patent foramen ovale as noted on 2-D or Dopp ler imaging. AORTIC VALVE The aortic valve is mildly to moderately thickened. Doppler and Color Flow revealed trace aortic regu rgitation. There is no significant aortic valvular stenosis. MITRAL VALVE The mitral valve is normal in structure and function. There is no evidence of mitral valve prolapse. There is no mitral valve stenosis. Doppler and Color-flow revealed trace to mild mitral regurgitation . TRICUSPID VALVE The tricuspid valve is normal in structure and function. Doppler and Color Flow revealed trace tricus pid regurgitation with an estimated PAP of 48 mmHg. There is mild-moderate pulmonary hypertension. Th ere is no tricuspid valve stenosis. PULMONIC VALVE The pulmonic valve is not well visualized. Doppler and Color Flow revealed mild pulmonic valvular reg urgitation. There is no pulmonic valvular stenosis. GREAT VESSELS The aortic root is normal in size. The IVC is normal in size and collapses <50% with inspiration. PERICARDIAL EFFUSION There is moderate left pleural effusion. There is no evidence of significant pericardial effusion. Critical Notification Critical Value: No <Conclusion> There is moderate concentric left ventricular hypertrophy. The systolic function is severely impaired. The Ejection Fraction is 15-20%. There is severe global hypokinesis of the left ventricle. RV Systolic function is moderately reduced. Doppler and Color-flow revealed trace to mild mitral regurgitation. Doppler and Color Flow revealed trace tricuspid regurgitation with an estimated PAP of 48 mmHg. There is mild-moderate pulmonary hypertension. Doppler and Color Flow revealed mild pulmonic valvular regurgitation. There is moderate left pleural effusion. Signed by : Anton Raya, Electronically Approved : 08/14/2020 14:23:20
--- NOTE | 2020-08-14 14:33 | NUR ---
SS following up with discharge planning. SS reviewed pt chart and discussed with pt RN. Pt is currently requiring oxygen via nasal canula. Pt has home oxygen at home. ECHO today. Pt being diuresed today. Possible home with family over the weekend. SS will continue to follow for discharge planning.
[2020-08-14 15:00] VITALS: BP 103/67
[2020-08-14 19:00] VITALS: BP 101/63
[2020-08-14] MEDS: ATORVASTATIN CALCIUM 10 MG TABLET. PO SCH (21:30)
[2020-08-14 23:20] VITALS: BP 97/67
[2020-08-15 03:30] VITALS: BP 104/69
[2020-08-15] MEDS: LEVOTHYROXINE 88 MCG TABLET PO SCH (06:42)
[2020-08-15 07:00] VITALS: BP 111/77
[2020-08-15 08:09] LABS: CALCIUM 9.1 mg/dL (8.5-10.1); CREATININE 1.4 mg/dL (0.7-1.3); GFR 48.2; POTASSIUM 3.5 mmol/L (3.5-5.1)
[2020-08-15] MEDS: MULTIVITAMIN with MINERAL TABLET. PO SCH (08:58)
[2020-08-15] MEDS: FINASTERIDE 5 MG TABLET. PO SCH (08:58)
[2020-08-15] MEDS: OMEGA-3 FATTY ACIDS/FISH OIL 1,000 MG CAPSULE. PO SCH (08:58)
[2020-08-15] MEDS: FUROSEMIDE 40 MG/4 ML VIAL. IVP SCH ×2 (08:58→14:48)
[2020-08-15] MEDS: ASCORBIC ACID 500 MG TABLET PO SCH (08:59)
[2020-08-15] MEDS: ASPIRIN CHEWABLE 81 MG TABLET. PO SCH (08:59)
[2020-08-15] MEDS: POTASSIUM CHLORIDE 10 MEQ TABLET.ER. PO SCH ×3 (08:59→17:21)
[2020-08-15] MEDS: RIVAROXABAN 15 MG TABLET. PO SCH (08:59)
[2020-08-15] MEDS: FLUoxetine HCL 20 MG CAPSULE PO SCH (08:59)
[2020-08-15] MEDS: CARVEDILOL 6.25 MG TABLET. PO SCH ×2 (08:59→17:19)
[2020-08-15] MEDS: traMADol 50 MG TABLET PO SCH ×3 (08:59→21:57)
[2020-08-15] MEDS: TAMSULOSIN 0.4 MG CAP.ER.24H. PO SCH (08:59)
[2020-08-15 10:50] VITALS: BP 108/72
[2020-08-15] MEDS ORDERED: EPINEPHrine SYRINGE 1 MG/10 ML SYRINGE ONE (12:00)
[2020-08-15] MEDS ORDERED: DEXTROSE 50% 25 GM / 50ML DISP.SYRIN. IV ONE (12:00)
[2020-08-15] MEDS ORDERED: SODIUM BICARB ADULT 8.4% 50 MEQ/50 ML DISP.SYRIN. ONE (12:00)
[2020-08-15] MEDS: SPIRONOLACTONE 25 MG TABLET PO SCH (14:48)
[2020-08-15 14:49] VITALS: BP 103/72
--- NOTE | 2020-08-15 16:16 | PDOC ---
PROGRESS NOTES Date of Service: DATE: 08/15/20 TIME: 16:16 Subjective Subjective Denied any chest pain, dyspnea improved Objective Objective Vital Signs Date Time Temp Pulse Resp B/P (MAP) Pulse Ox O2 Delivery O2 Flow Rate FiO2 08/15/20 14:49 97.6 69 20 103/72 (82) 98 Nasal Cannula 3.0 97.6 Intake and Output 08/15/20 07:00 Intake Total 1200 ml Output Total 2085 ml Balance -885 ml Intake Oral 1200 ml Output Urine Total 2085 ml Physical Exam Abdomen: Soft, No tenderness Heart: Other (Chronic AFIB rate controlled) Extremities: No cyanosis, Other (1+ pitting edema) General: Alert, No acute distress HEENT: Atraumatic, Mucous membr. moist/pink Lungs: Other (diffuse faint crackles) Neuro: Normal speech, Sensation intact Psych/Mental Status: Mental status NL, Mood NL Skin: Other (toe wound) Assessment Assessment 1. Acute on chronic diastolic/systolic CHF: likely from lack of diuretics for a week, better compensated with diuresis 2. Severe Cardiomyopathy: EF 15-20%, probably not a good candidate for ICD due to his age. Continue current meds including spironolactone. We will consider entresto if renal function remains stable. 3. Hx of COPD: stable 4. Hypertension; controlled 5. Anemia of chronic disease 6. Moderate pulmonary HTN 7. CAD; Stent to LAD in 2016. clinically stable. CP free 8. Hyperlipidemia 9. Chronic AFIB; rate controlled. Continue xarelto for stroke prophylaxis 10. Hx of CVA with right side hemiparesis 11. SERENA vs CKD 12. Mild troponin elevation: suspect demand mediated 13. Hypothyroidism: on replacement Plan Plan of Care Problems Medical Problems: (1) Chronic a-fib Status: Chronic (2) Hyponatremia Status: Acute Comment Review of Relevant I have reviewed the following items joana (where applicable) has been applied. Labs Laboratory Tests Test 08/15/20 06:09 Sodium Level 135 mmol/L (136-145) Potassium Level 3.5 mmol/L (3.5-5.1) Chloride Level 96 mmol/L (98-107) Carbon Dioxide Level 31 mmol/L (21-32) Anion Gap 8 (6-14) Blood Urea Nitrogen 31 mg/dL (8-26) Creatinine 1.4 mg/dL (0.7-1.3) Estimated GFR (Cockcroft-Gault) 48.2 Glucose Level 103 mg/dL (70-99) Calcium Level 9.1 mg/dL (8.5-10.1) Magnesium Level 1.8 mg/dL (1.8-2.4) Vitals/I & O Vital Sign - Last 24 Hours 08/14/20 08/14/20 08/14/20 08/14/20 17:41 19:00 20:00 21:30 Temp 98.1 98.1 Pulse 75 84 Resp 20 B/P (MAP) 103/67 101/63 (76) Pulse Ox 98 O2 Delivery Nasal Cannula Nasal Cannula O2 Flow Rate 3.0 3.0 3.0 08/14/20 08/14/20 08/15/20 08/15/20 22:30 23:20 03:30 07:00 Temp 97.8 97.7 98.0 97.8 97.7 98.0 Pulse 56 77 80 Resp 22 24 20 B/P (MAP) 97/67 (77) 104/69 (81) 111/77 (88) Pulse Ox 99 98 99 O2 Delivery Nasal Cannula Nasal Cannula Nasal Cannula Nasal Cannula O2 Flow Rate 2.0 3.0 3.0 3.0 08/15/20 08/15/20 08/15/20 08/15/20 08:00 08:59 08:59 09:55 Pulse 80 Resp 20 B/P (MAP) 111/77 Pulse Ox 99 99 O2 Delivery Nasal Cannula Nasal Cannula Nasal Cannula O2 Flow Rate 3.0 3.0 3.0 08/15/20 08/15/20 08/15/20 10:50 14:48 14:49 Temp 98.1 97.6 98.1 97.6 Pulse 74 69 Resp 20 20 B/P (MAP) 108/72 (84) 103/72 (82) Pulse Ox 98 98 98 O2 Delivery Nasal Cannula Nasal Cannula Nasal Cannula O2 Flow Rate 3.0 3.0 3.0 Intake and Output 08/14/20 08/14/20 08/15/20 15:00 23:00 07:00 Intake Total 600 ml 300 ml 300 ml Output Total 260 ml 1250 ml 575 ml Balance 340 ml -950 ml -275 ml AGNES HERNANDEZ MD Aug 15, 2020 16:16
[2020-08-15 19:00] VITALS: BP 119/75
[2020-08-15] MEDS: ATORVASTATIN CALCIUM 10 MG TABLET. PO SCH (21:56)
[2020-08-15 23:20] VITALS: BP 102/70
[2020-08-15] MEDS: ALBUTEROL SULFATE 2.5 MG/3 ML NEBU. NEB PRN (23:49)
[2020-08-16] VITALS (10 sets, daily range): BP systolic 73–109; BP diastolic 49–77
[2020-08-16 08:40] LABS: CREATININE 1.3 mg/dL (0.7-1.3); GFR 52.5; POTASSIUM 4.2 mmol/L (3.5-5.1)
[2020-08-16] MEDS: POTASSIUM CHLORIDE 10 MEQ TABLET.ER. PO SCH ×3 (08:49→17:32)
[2020-08-16] MEDS: OMEGA-3 FATTY ACIDS/FISH OIL 1,000 MG CAPSULE. PO SCH (08:49)
[2020-08-16] MEDS: MULTIVITAMIN with MINERAL TABLET. PO SCH (08:49)
[2020-08-16] MEDS: FINASTERIDE 5 MG TABLET. PO SCH (08:49)
[2020-08-16] MEDS: ASPIRIN CHEWABLE 81 MG TABLET. PO SCH (08:49)
[2020-08-16] MEDS: ASCORBIC ACID 500 MG TABLET PO SCH (08:49)
[2020-08-16] MEDS: FLUoxetine HCL 20 MG CAPSULE PO SCH (08:49)
[2020-08-16] MEDS: TAMSULOSIN 0.4 MG CAP.ER.24H. PO SCH (08:50)
[2020-08-16] MEDS: FUROSEMIDE 40 MG/4 ML VIAL. IVP SCH (08:50)
[2020-08-16] MEDS: CARVEDILOL 6.25 MG TABLET. PO SCH ×2 (08:50→16:24)
[2020-08-16] MEDS: RIVAROXABAN 15 MG TABLET. PO SCH (08:50)
[2020-08-16] MEDS: traMADol 50 MG TABLET PO SCH ×3 (08:51→21:00)
[2020-08-16] MEDS: LEVOTHYROXINE 88 MCG TABLET PO SCH (11:22)
[2020-08-16] MEDS ORDERED: SPIR25TA PO (12:01)
[2020-08-16] MEDS ORDERED: FURO-68 PO (12:01)
[2020-08-16] MEDS ORDERED: POTA20TA4 PO (12:01)
--- NOTE | 2020-08-16 12:23 | DS ---
DATE OF DISCHARGE: 08/16/2020 PRIMARY DIAGNOSIS: Acute systolic congestive heart failure. ADDITIONAL DIAGNOSES: 1. Shortness of breath. 2. Edema. 3. Cardiomyopathy with an ejection fraction of 20%. 4. Chronic atrial fibrillation. 5. Expressive aphasia. 6. Mild right hemiparesis. 7. Acute kidney injury during. CHIEF COMPLAINT AND HISTORY OF PRESENT ILLNESS: This 85-year-old white male admitted through the Emergency Room with shortness of breath, swelling, found to be in acute congestive heart failure and elevated BNP in the 10,000 range and bilateral infiltrates consistent with congestive heart failure. He also had some acute kidney injury with creatinine of 1.4 on admission. SUMMARY OF STAY: The patient was admitted and became apparently not been taking his diuretics prior to admission. He was diuresed well during the stay with improvement in his symptomatology and some fairly significant hypokalemia with the same. Cardiology added 25 mg of Aldactone to his regimen during the stay. He will go home on 40 mg of p.o. Lasix and this will need to be adjusted as an outpatient only 20 mEq of potassium, which will need to be checked on followup in the office in addition. He was back to his baseline. No complaints of shortness of breath and was dismissed. DISPOSITION: The patient is discharged to home. He is discharged on low sodium diet. ACTIVITY: As tolerated. FOLLOWUP: Office in [address] Hare. DISCHARGE MEDICATIONS: Listed on the med rec and have been addressed. LORNA SUH MD DR: HOWIE/christiano JOB#: [id number] / [id number]
[2020-08-16] MEDS ORDERED: ALPRAZolam 0.25 MG TABLET PO PRN (14:00)
[2020-08-16] MEDS: SPIRONOLACTONE 25 MG TABLET PO SCH (14:11)
[2020-08-16] MEDS: ALBUTEROL SULFATE 2.5 MG/3 ML NEBU. NEB PRN (14:21)
--- NOTE | 2020-08-16 14:41 | NUR ---
Pt bladder scanned after voiding 80ml; zero residual noted on bladder scanner.
--- NOTE | 2020-08-16 14:51 | PDOC ---
PROGRESS NOTES Date of Service: DATE: 08/16/20 TIME: 14:51 Subjective Subjective Dyspnea improved. Denied any chest pain. Objective Objective Vital Signs Date Time Temp Pulse Resp B/P (MAP) Pulse Ox O2 Delivery O2 Flow Rate FiO2 08/16/20 14:27 97.5 106 20 109/67 (81) 94 Nasal Cannula 4.0 97.5 Intake and Output 08/16/20 07:00 Intake Total 750 ml Output Total 1050 ml Balance -300 ml Intake Oral 750 ml Output Urine Total 1050 ml Physical Exam Abdomen: Soft, No tenderness Heart: Other (Chronic AFIB rate controlled) Extremities: No cyanosis, Other (1+ pitting edema) General: Alert, No acute distress HEENT: Atraumatic, Mucous membr. moist/pink Lungs: Other (diffuse faint crackles) Neuro: Normal speech, Sensation intact Psych/Mental Status: Mental status NL, Mood NL Skin: Other (toe wound) Assessment Assessment 1. Acute on chronic diastolic/systolic CHF: likely from lack of diuretics for a week, better compensated with diuresis 2. Severe Cardiomyopathy: EF 15-20%, probably not a good candidate for ICD due to his age. Continue current meds including spironolactone. We will consider entresto as an outpatient if renal function remains stable. 3. Hx of COPD: stable 4. Hypertension; controlled 5. Anemia of chronic disease 6. Moderate pulmonary HTN 7. CAD; Stent to LAD in 2016. clinically stable. CP free 8. Hyperlipidemia 9. Chronic AFIB; rate controlled. Continue xarelto for stroke prophylaxis 10. Hx of CVA with right side hemiparesis 11. SERENA vs CKD 12. Mild troponin elevation: suspect demand mediated 13. Hypothyroidism: on replacement Plan Plan of Care Problems Medical Problems: (1) Chronic a-fib Status: Chronic (2) Hyponatremia Status: Acute Comment Review of Relevant I have reviewed the following items joana (where applicable) has been applied. Labs Laboratory Tests Test 08/16/20 06:15 Sodium Level 134 mmol/L (136-145) Potassium Level 4.2 mmol/L (3.5-5.1) Chloride Level 95 mmol/L (98-107) Carbon Dioxide Level 28 mmol/L (21-32) Anion Gap 11 (6-14) Blood Urea Nitrogen 31 mg/dL (8-26) Creatinine 1.3 mg/dL (0.7-1.3) Estimated GFR (Cockcroft-Gault) 52.5 Glucose Level 93 mg/dL (70-99) Calcium Level 9.0 mg/dL (8.5-10.1) Medications Current Medications Albuterol Sulfate (Ventolin Neb Soln) 2.5 mg PRN TID PRN NEB SHORTNESS OF BREATH Last administered on 08/16/20at 14:21; Start 08/15/20 at 23:30 Alprazolam (Xanax) 0.25 mg PRN Q6HRS PRN PO ANXIETY / AGITATION Last administered on 08/16/20at 14:10; Start 08/16/20 at 14:00 Vitals/I & O Vital Sign - Last 24 Hours 08/15/20 08/15/20 08/15/20 08/15/20 15:45 17:19 19:00 20:00 Temp 97.4 97.4 Pulse 69 34 Resp 20 16 B/P (MAP) 103/72 119/75 (90) Pulse Ox 98 100 O2 Delivery Nasal Cannula Nasal Cannula Nasal Cannula O2 Flow Rate 3.0 3.0 3.0 08/15/20 08/15/20 08/15/20 08/16/20 21:57 23:20 23:49 03:04 Temp 97.9 97.8 97.9 97.8 Pulse 79 84 Resp 20 20 20 B/P (MAP) 102/70 (81) 102/75 (84) Pulse Ox 96 93 96 99 O2 Delivery Nasal Cannula Nasal Cannula Nasal Cannula Nasal Cannula O2 Flow Rate 3.0 3.0 4.0 3.0 08/16/20 08/16/20 08/16/20 08/16/20 07:00 08:00 08:50 08:51 Temp 98.0 98.0 Pulse 86 86 Resp 20 20 B/P (MAP) 98/76 (83) 98/76 Pulse Ox 98 98 O2 Delivery Room Air Nasal Cannula Nasal Cannula O2 Flow Rate 4.0 3.0 08/16/20 08/16/20 08/16/20 08/16/20 09:51 10:47 14:14 14:23 Temp 97.5 97.5 Pulse 68 Resp 18 20 B/P (MAP) 103/77 (86) Pulse Ox 93 93 93 95 O2 Delivery Nasal Cannula Nasal Cannula Nasal Cannula Nasal Cannula O2 Flow Rate 4.0 4.0 4.0 4.0 08/16/20 14:27 Temp 97.5 97.5 Pulse 106 Resp 20 B/P (MAP) 109/67 (81) Pulse Ox 94 O2 Delivery Nasal Cannula O2 Flow Rate 4.0 Intake and Output 08/15/20 08/15/20 08/16/20 15:00 23:00 07:00 Intake Total 750 ml 0 ml Output Total 250 ml 800 ml Balance -250 ml -50 ml 0 ml AGNES HERNANDEZ MD Aug 16, 2020 14:51
--- NOTE | 2020-08-16 19:32 | NUR ---
193 In room repositioning patient. Pt became unresponsive not breathing and pt has no pulse. CPR initiated. Code Zackery called overhead. See Code blue sheet. 1939. Pts and son notified of pts change in condition. [address] scruggs. [address] guevara. pt going to icu room 112
[2020-08-16] MEDS ORDERED: DEXTROSE 50% 25 GM / 50ML DISP.SYRIN. IV ONE ×3 (19:44→20:05)
[2020-08-16] MEDS ORDERED: PROPOFOL 100 ML IV ONE (20:28)
[2020-08-16] MEDS: PROPOFOL 100 ML IV PRN (20:34)
[2020-08-16] MEDS: ATORVASTATIN CALCIUM 10 MG TABLET. PO SCH (21:00)
[2020-08-16 21:04] LABS: BASE EXCESS ABG -10 mmol/L (-3-3); CORRECTED PCO2 ABG 39 mmHg; CORRECTED PH ABG 7.26; CORRECTED PO2 ABG 121 mmHg; HCO3 ABG 18 mmol/L (21-28); PCO2 ABG 46 mmHg (35-46); PO2 ABG 142 mmHg (65-108); SAT O2 ABG 98 % (92-99)
--- NOTE | 2020-08-16 21:21 | RAD ---
XR CHEST 1V CLINICAL INDICATIONS: Reason: post code COMPARISON: August 12, 2020. Findings: Diffuse left lung field infiltrate or pulmonary edema is unchanged. There is persistent dif fuse pulmonary edema or lung infiltrate on the right side which has worsened on the right side especi ally in the right upper lobe. There is a small right-sided pleural effusion and small left-sided pleu ral effusion which are unchanged. No pneumothorax is evident. ET tube tip is located 4 cm above the l evel of the yolande. NG tube tip is seen within the mid body of the stomach. Cardiomegaly is evident a nd is unchanged. Mediastinum is unchanged. IMPRESSION: Worsening right lung infiltrate or pulmonary edema. Stable left lung infiltrate or pulmon tamia edema. No pneumothorax. Electronically signed by: Wood Marinelli MD (08/16/2020 9:18 PM) [id number]
[2020-08-16] MEDS: MIDAZOLAM 100mg/100ml NS BAG 100 ML IV PRN (21:26)
[2020-08-16 21:33] LABS: FIO2 ABG 100
[2020-08-16] MEDS: NOREPINEPHRINE VIAL 8 MG in IV DEXTROSE 5% 250 ML IV PRN (21:45)
--- NOTE | 2020-08-16 23:46 | NUR ---
2029 transfer from - s/p code. 2035 RT had nurse check for pulse- no found code called. 2140- Pulse return. cont to be hypotensive. levophed started. Family in to see patient Addendum: 08/17/20 at 0105 by CINDY ELLIS RN FS at [phone] FS at [phone]
[2020-08-17] VITALS (25 sets, daily range): BP systolic 80–107; BP diastolic 54–76
[2020-08-17] MEDS: NOREPINEPHRINE VIAL 8 MG in IV DEXTROSE 5% 250 ML IV PRN ×4 (01:37→19:30)
[2020-08-17 04:34] LABS: HEMATOCRIT 49.2 % (39.0-53.0); RED BLOOD COUNT 5.03 x10^6/uL (4.30-5.70); RED CELL DISTRIBUTION WIDTH 16.6 % (11.5-14.5); WHITE BLOOD COUNT 21.8 x10^3/uL (4.0-11.0)
[2020-08-17 04:50] LABS: CALCIUM 8.9 mg/dL (8.5-10.1); CREATININE 2.1 mg/dL (0.7-1.3); GFR 30.2; POTASSIUM 5.2 mmol/L (3.5-5.1)
[2020-08-17] MEDS: LEVOTHYROXINE 88 MCG TABLET PO SCH (06:00)
--- NOTE | 2020-08-17 07:27 | PDOC5 ---
CODE REPORT CODE REPORT 08/16/2020 @1932 CODE BLUE: (EMERGENCY DEPARTMENT NOTE) HPI: Called emergency to respond to consult for inpatient hospital code. Initial rhythm on floor noted to be PEA. Assesment: Constitutional: Ill and cacethic appearing male HENT: Normocephalic, atraumatic, oropharynx dry Eyes: Pupils unresponsive, conjunctiva normal, no discharge Neck: Normal range of motion, supple Cardiovascular: Pulse absent with exception of during CPR resuscitative efforts Lungs & Thorax: No spontaneous respirations, Bag valve mask utilized with coarse breath sounds noted Abdomen: Soft, no tenderness, mild distention Skin: Warm, dry, no erythema, no rash Extremities: No tenderness, deformity Neurologic: GCS 3, limited MDM: (See hospital code sheet) Called emergently to second floor for patient and cardiopulmonary arrest. Prior to my arrival, nursing staff had initiated ACLS protocol. CPR currently in progress. Patient had lost pulse and was noted to be in PEA arrest. Accu-Chek obtained early upon arrival with blood glucose noted to be down to 45. Dextrose provided. Patient was intubated @1941 on 1 attempt with glide scope with a 7.5 cuffed ET tube that was marked 24 cm at the teeth. (See procedure note). A total of 3 amps of epinephrine provided in addition to 2 amps of Bicarb and 2 amps of Dextrose with return of spontaneous circulation obtained @1944. Notified patient's family regarding. cleaning staff supervisor to notify patient's physician- Dr. Erwin. CXR obtained with good position of ETT. Patient transferred to ICU. BRENDA LIRA again called for patient while in ICU @2035 ACLS again initiated. Patient again noted in PEA arrest. CPR initiated and 1 round of epinephrine initiated with successful return of circulation @2040. Accucheck obtained and found to be 103. Clinical Impression: 1) Cardiopulmonary arrest with return of spontaneous circulation x 2 2) Hypoglycemia Condition: Critical Critical Care Statement: Critical care time was 30 minutes which includes time at bedside, spent in discussion of patient's care with specialists and/or family members, with interpretation of laboratory and/or radiological studies and is exclusive of procedures. Intubation Intubation : Time of Intubation: 19:42 Intubation Method: orotracheal Tube Size (cm): 7.5 Breath Sounds after Intubation: equal Intubation Complications: no complications Post Intubation Xray: Yes Progress Emergent consent obtained. Time out performed. Hand hygiene utilized. Chapman scope utilized with successful placement of 7.5 cuffed ET tube which was marked 24 cm at teeth for patient in cardiopulmonary arrest. Good fogging and end- tidal CO2 color change appreciated. Equal chest rise and fall with bilateral breath sounds and no breath sounds over epigastrium. Some bloody sputum noted which was suctioned from ET tube. Chest x-ray obtained for placement: PROCEDURE: PORTABLE CHEST 1V XR CHEST 1V CLINICAL INDICATIONS: Reason: post code COMPARISON: August 12, 2020. Findings: Diffuse left lung field infiltrate or pulmonary edema is unchanged. There is persistent diffuse pulmonary edema or lung infiltrate on the right side which has worsened on the right side especially in the right upper lobe. There is a small right-sided pleural effusion and small left-sided pleural effusion which are unchanged. No pneumothorax is evident. ET tube tip is located 4 cm above the level of the yolande. NG tube tip is seen within the mid body of the stomach. Cardiomegaly is evident and is unchanged. Mediastinum is unchanged. IMPRESSION: Worsening right lung infiltrate or pulmonary edema. Stable left lung infiltrate or pulmonary edema. No pneumothorax. Electronically signed by: Wood Marinelli MD (08/16/2020 9:18 PM) [id number] ERNESTINE WATSON DO Aug 17, 2020 07:27
[2020-08-17 07:40] LABS: BASE EXCESS ABG 5 mmol/L (-3-3); HCO3 ABG 25 mmol/L (21-28); PCO2 ABG 26 mmHg (35-46); PO2 ABG 92 mmHg (65-108); SAT O2 ABG 98 % (92-99)
[2020-08-17 07:52] LABS: FIO2 ABG 50
[2020-08-17] MEDS: CARVEDILOL 6.25 MG TABLET. PO SCH (08:00)
[2020-08-17] MEDS: POTASSIUM CHLORIDE 10 MEQ TABLET.ER. PO SCH ×2 (08:00→11:23)
[2020-08-17] MEDS: ASPIRIN CHEWABLE 81 MG TABLET. PO SCH (08:00)
[2020-08-17] MEDS: RIVAROXABAN 15 MG TABLET. PO SCH (08:00)
[2020-08-17] MEDS ORDERED: ANTI-COAG MONITOR BY PHARMACY. MC PRN (08:15)
[2020-08-17] MEDS: ASCORBIC ACID 500 MG TABLET PO SCH (08:22)
[2020-08-17] MEDS: FINASTERIDE 5 MG TABLET. PO SCH (08:22)
[2020-08-17] MEDS: FLUoxetine HCL 20 MG CAPSULE PO SCH (08:22)
[2020-08-17] MEDS: OMEGA-3 FATTY ACIDS/FISH OIL 1,000 MG CAPSULE. PO SCH (08:22)
[2020-08-17] MEDS: TAMSULOSIN 0.4 MG CAP.ER.24H. PO SCH (08:23)
[2020-08-17] MEDS: MULTIVITAMIN with MINERAL TABLET. PO SCH (08:23)
[2020-08-17] MEDS: traMADol 50 MG TABLET PO SCH ×3 (08:23→19:21)
--- NOTE | 2020-08-17 08:57 | PDOC ---
Provider Note Date of Service: DATE: 08/17/20 TIME: 08:55 Provider Note resp failure last pm, may be aspiration or other pneumonia vs cardiogenic- wbc up, arf present also- will add cefipime, cons pulm/ ID but poor prognosis given severe cardiomyopathy/neuro status Justifications for Admission Other Justification VERENICE BLOOD MD Aug 17, 2020 08:57
[2020-08-17] MEDS ORDERED: VANCOMYCIN 1 GM in IV NORMAL SALINE 250ML 250 ML IV SCH (09:00)
--- NOTE | 2020-08-17 09:21 | NUR ---
Dr. Hare here to see pt. Informed him of coffee looking GI content coming from the OG. Instructed to hold the aspirin and xarelto. Also Coreg and Aldactone held due to levophed use. Lorraine Soto notified of pulmonary consult and Lorraine Hung notified of ID consult.
[2020-08-17] MEDS ORDERED: VANCOMYCIN PER PHARMACY MC PRN (09:30)
[2020-08-17] MEDS: PANTOPRAZOLE IV PUSH 40 MG VIAL. IVP SCH (09:38)
[2020-08-17] MEDS ORDERED: CEFEPIME HCL IV Push 2 GM VIAL. IVP SCH (10:00)
[2020-08-17] MEDS ORDERED: VANCOMYCIN 1.75 GM in IV NORMAL SALINE 500ML BAG 500 ML IV ONE (10:00)
[2020-08-17] MEDS: SPIRONOLACTONE 25 MG TABLET PO SCH (11:23)
[2020-08-17] MEDS ORDERED: EPINEPHrine SYRINGE 1 MG/10 ML SYRINGE ONE (12:00)
--- NOTE | 2020-08-17 12:10 | NUR ---
Pharmacy Vancomycin Dosing Note S:Consulted to monitor and dose vancomycin started 08/17/20. O:DESIREE LOWRY is a 85 year old M s/p cardiac arrest with concerns for PNA. Height: 5 feet, 8 inches Weight: 83.6 kg [place] Body Weight: 68.40 Adjusted Body Weight: 74.48 Dosing Weight: Actual Other Antibiotics: Cefepime LABS: Last BUN: 43 Last Creatinine: 2.1 Creatinine Clearance: estimated to be < 30 ml/min; SERENA (SCr increased from 1.3 to 2.1) Last WBC: 21.8 Last Procalcitonin: - Tmax (past 24 hours): 98.9 Microbiology: Pending I/O: 1172/465 Last dose given 08/17/20 at 0939 Vancomycin Dosing: Loading Dose: 1750 mg x1 Dosing Weight: Actual Target Trough: 15-20 A: Based on: Patient's renal function, PMH, severity of suspected infection and patient being post cardiac arrest and acute kidney injury: P: 1. Will dose vancomycin IV Per Levels at this time 2. Follow up Random level on 08/18/20 at 1000 3. Pharmacy will continue to monitor, follow and adjust therapy as needed. BECKI DAY, [facility], 08/17/20 1210
--- NOTE | 2020-08-17 12:19 | PDOC ---
OKSANA PAINTER [employer]ESSOR 08/17/20 1219: CARDIO Progress Notes Date and Time Date of Service 08/17/20 Time of Evaluation 1215 Subjective Subjective: Other (intubated, sedated ) Vitals Vitals Vital Signs Date Time Temp Pulse Resp B/P (MAP) Pulse Ox O2 Delivery O2 Flow Rate FiO2 08/17/20 11:43 100 Ventilator 08/17/20 11:00 110 20 103/75 (84) 08/17/20 08:00 97.7 97.7 08/16/20 23:36 4.0 Weight Weight [ ] Input and Output Intake and Output Intake and Output 08/17/20 07:00 Intake Total 1172 ml Output Total 510 ml Balance 662 ml Intake Oral 800 ml IV Total 372 ml Output Urine Total 510 ml Laboratory Labs Laboratory Tests Test 08/16/20 19:42 08/16/20 20:03 08/16/20 20:30 08/17/20 04:05 Glucose (Fingerstick) 45 mg/dL (70-99) 75 mg/dL (70-99) O2 Saturation 98 % (92-99) Arterial Blood pH 7.21 (7.35-7.45) Arterial Blood pH (Temp corrected) 7.26 Arterial Blood pCO2 at Patient Temp 46 mmHg (35-46) Arterial Blood pCO2 (Temp correct) 39 mmHg Arterial Blood pO2 at Patient Temp 142 mmHg (65-108) Arterial Blood pO2 (Temp corrected) 121 mmHg Arterial Blood HCO3 18 mmol/L (21-28) Arterial Blood Base Excess -10 mmol/L (-3-3) FiO2 100 White Blood Count 21.8 x10^3/uL (4.0-11.0) Red Blood Count 5.03 x10^6/uL (4.30-5.70) Hemoglobin 16.0 g/dL (13.0-17.5) Hematocrit 49.2 % (39.0-53.0) Mean Corpuscular Volume 98 fL (79-100) Mean Corpuscular Hemoglobin 32 pg (25-35) Mean Corpuscular Hemoglobin Concent 33 g/dL (31-37) Red Cell Distribution Width 16.6 % (11.5-14.5) Platelet Count 126 x10^3/uL (140-400) Sodium Level 131 mmol/L (136-145) Potassium Level 5.2 mmol/L (3.5-5.1) Chloride Level 96 mmol/L (98-107) Carbon Dioxide Level 21 mmol/L (21-32) Anion Gap 14 (6-14) Blood Urea Nitrogen 43 mg/dL (8-26) Creatinine 2.1 mg/dL (0.7-1.3) Estimated GFR (Cockcroft-Gault) 30.2 Glucose Level 108 mg/dL (70-99) Calcium Level 8.9 mg/dL (8.5-10.1) Test 08/17/20 07:20 O2 Saturation 98 % (92-99) Arterial Blood pH 7.61 (7.35-7.45) Arterial Blood pCO2 at Patient Temp 26 mmHg (35-46) Arterial Blood pO2 at Patient Temp 92 mmHg (65-108) Arterial Blood HCO3 25 mmol/L (21-28) Arterial Blood Base Excess 5 mmol/L (-3-3) FiO2 50 Physical Exam HEENT: Neck Supple W Full Motion Chest: Symmetric LUNGS: Other (mechanical vent ) Heart: RRR Abdomen: Other (non-distended ) Extremities: Other (trace bilateral LE edema) Neurology: other (sedated) Assessment Assessment 1. Acute on chronic diastolic/systolic CHF: better compensated with diuresis 2. Severe Cardiomyopathy: EF 15-20%, which is not significant change from prior, poor candidate for ICD due to his age. 3. S/p PEA arrest x2. BS 45 4. Acute respiratory failure secondary to above. S/p intubation 5. SERENA, hyperkalemia 6. Leukocytosis, probable sepsis; requiring pressor support 7. ? GIB. OB tube with coffee ground content 8. CAD s/p PCI/stent. clinically stable. No VT/VF 8. Hyperlipidemia; statin 9. Chronic AFIB; rate controlled overall 10. Hx of CVA with right side hemiparesis 11. Mild troponin elevation: suspect demand mediated 12. Hypothyroidism: on replacement Recommendations Hold ASA, Xarelto with ? GIB Hold coreg with hypotension. May use IV Dig PRN for rate control Pressor support as warranted Hold Aldactone, Lasix with SERENA PPI Consider GI consult Supportive care Justicifation of Admission Dx: Justifications for Admission: Justification of Admission Dx: Yes Comments: PEA arrest Acute respiratory failure requiring intubation SIMONE BULLOCK MD 08/17/20 1839: CARDIO Progress Notes Assessment Assessment Patient seen and examined I agree with our nurse practitioners assessment and plan. Acute on chronic diastolic/systolic CHF: better compensated with diuresis Severe Cardiomyopathy: EF 15-20%, which is not significant change from prior, poor candidate for ICD due to his age. S/p PEA arrest x2. BS 45 Acute respiratory failure secondary to above. S/p intubation SERENA, hyperkalemia ? GIB. OB tube with coffee ground content CAD s/p PCI/stent. clinically stable. No VT/VF Hyperlipidemia; statin Chronic AFIB; rate controlled overall Mild troponin elevation: suspect demand mediated OKSANA PAINTER APRN Aug 17, 2020 12:19 SIMONE BULLOCK MD Aug 17, 2020 18:39
[2020-08-17] MEDS: MIDAZOLAM 100mg/100ml NS BAG 100 ML IV PRN (12:32)
[2020-08-17] MEDS: PIPERACILLIN/TAZOBACTAM 2.25 GM in IV NORMAL SALINE 50ML 50 ML IV SCH ×2 (13:04→22:13)
--- NOTE | 2020-08-17 13:16 | CONS ---
DATE OF CONSULTATION: 08/17/2020 REFERRING PHYSICIAN: Dr. Hare. REASON FOR CONSULTATION: Antibiotic management, possible aspiration. SOURCE OF INFORMATION: The patient is intubated in ICU. History obtained from chart and medical staff. HISTORY OF PRESENT ILLNESS: An 85-year-old male who presented to the ER on 08/12/2020 with complaints of shortness of breath. The patient has an extensive history of cardiac problems with chronic atrial fibrillation, coronary artery disease, cardiomyopathy with worsening swelling of both the legs with PND and orthopnea. He had stopped his diuretics prior to admission. The patient had refused placement of defibrillator in the past. The patient was treated for CHF. There were plans for discharge for him today. Overnight, he became hypotensive and code blue was called last night. Initial rhythm on the floor, noted to be PEA. He underwent ACLS protocol, CPR. Blood glucose level was noted to be 45. He received 3 amps of epinephrine, 2 amps of bicarb, 2 amps of dextrose with return of spontaneous circulation. He was intubated and was transferred to ICU. White count was up to 21,000, platelets of 126. Sodium of 131, potassium of 5.2, creatinine gone up from 1.3-2.1. Glucose was up to 75. Chest x-ray revealed worsening right lung infiltrate or pulmonary edema, stable left lung infiltrate or pulmonary edema, no pneumothorax. The patient was started on IV vancomycin and cefepime. ID consultation has been requested for antibiotic management. The patient is unable to give any history. History obtained from chart and medical staff. PAST MEDICAL HISTORY: History of CVA, secondary hemiplegia, aphasia, chronic AFib, acute on chronic systolic and diastolic heart failure, severe cardiomyopathy, ejection fraction 15-20%, not a candidate for ICD due to age, history of COPD, hypertension, anemia of chronic disease, moderate pulmonary hypertension, coronary artery disease, hyperlipidemia, SERENA on chronic kidney disease, hypothyroidism, possible peripheral arterial disease. REVIEW OF SYSTEMS: Unable to obtain. CURRENT MEDICATION: IV vancomycin and cefepime. Other medications reviewed in medication list. PHYSICAL EXAMINATION: VITAL SIGNS: Temperature 97, had dropped to 93.1 last night, pulse 110, respiratory rate 20, blood pressure 103/75, oxygen saturation 100% on ventilator. The patient on pressors. GENERAL: Intubated/sedated. HEENT: Normocephalic, atraumatic. ETT and OG tube in place. NECK: Supple. LUNGS: Coarse breath sounds. HEART: S1, S2 irregular. ABDOMEN: Soft. Bowel sounds present, mildly distended. EXTREMITIES: Purplish blue toes. Edema present. GENITOURINARY: Pastor in place. Dark colored urine. DERMATOLOGIC: No generalized rash, abrasions present over the anterior chest wall and anterior lower extremities. NEUROLOGIC: Intubated, sedated. PSYCHIATRIC: Unable to assess. LABORATORY DATA: WBC 21.8, hemoglobin 16.0, hematocrit 49.2, platelets 126. Sodium 131, potassium 5.2, chloride 96, bicarbonate 21, BUN 43, creatinine 2.1, glucose 108, total bilirubin 4.9 on 08/13/2020, direct 3.7, AST 71, ALT 31, alkaline phosphatase 57, albumin 2.3. MICRO: None. IMAGING: Chest x-ray, worsening right lung infiltrate or pulmonary edema, stable left lung infiltrate or pulmonary edema, no pneumothorax. Ultrasound of the abdomen showed sliver of perihepatic ascites, right pleural effusion, prior cholecystectomy. IMPRESSION: 1. Status post cardiac arrest, PEA. 2. Acute on chronic hypoxic respiratory failure. 3. Acute on chronic congestive heart failure. 4. Leukocytosis, likely reactive, but could have a component of aspiration. 5. Sepsis. 6. Acute kidney injury on chronic kidney disease. 7. Chronic atrial fibrillation. 8. Cardiomyopathy. 9. History of cerebrovascular accident with hemiparesis. 10. Hyperbilirubinemia. 11. PAD 12. History of noncompliance. RECOMMENDATIONS: 1. Discontinue IV vancomycin due to SERENA. 2. Discontinue cefepime. 3. Start Zosyn. 4. Follow up labs and cultures. 5. Continue supportive care. 6. Critically ill. 7. Overall prognosis is poor. 8. Discussed with nursing staff. Thank you for allowing me to participate in this patient's care. If you have any questions, do not hesitate to contact me. YAHAIRA GARY MD DR: JADEN/christiano JOB#: [id number] / [id number] [place]
--- NOTE | 2020-08-17 14:07 | PDOC ---
PULMONARY PROGRESS NOTES DATE: 08/17/20 TIME: 14:06 Vitals Vital Signs Date Time Temp Pulse Resp B/P (MAP) Pulse Ox O2 Delivery O2 Flow Rate FiO2 08/17/20 13:00 101 20 98/72 (81) 50 Ventilator 08/17/20 12:00 99.5 99.5 08/16/20 23:36 4.0 General: Alert Lungs: Other Cardiovascular: S1, S2 Abdomen: Soft, Non-tender Extremities: Other Labs Laboratory Tests Test 08/16/20 06:15 08/16/20 19:42 08/16/20 20:03 08/16/20 20:30 Sodium Level 134 mmol/L (136-145) Potassium Level 4.2 mmol/L (3.5-5.1) Chloride Level 95 mmol/L (98-107) Carbon Dioxide Level 28 mmol/L (21-32) Anion Gap 11 (6-14) Blood Urea Nitrogen 31 mg/dL (8-26) Creatinine 1.3 mg/dL (0.7-1.3) Estimated GFR (Cockcroft-Gault) 52.5 Glucose Level 93 mg/dL (70-99) Calcium Level 9.0 mg/dL (8.5-10.1) Glucose (Fingerstick) 45 mg/dL (70-99) 75 mg/dL (70-99) O2 Saturation 98 % (92-99) Arterial Blood pH 7.21 (7.35-7.45) Arterial Blood pH (Temp corrected) 7.26 Arterial Blood pCO2 at Patient Temp 46 mmHg (35-46) Arterial Blood pCO2 (Temp correct) 39 mmHg Arterial Blood pO2 at Patient Temp 142 mmHg (65-108) Arterial Blood pO2 (Temp corrected) 121 mmHg Arterial Blood HCO3 18 mmol/L (21-28) Arterial Blood Base Excess -10 mmol/L (-3-3) FiO2 100 Test 08/17/20 04:05 08/17/20 07:20 White Blood Count 21.8 x10^3/uL (4.0-11.0) Red Blood Count 5.03 x10^6/uL (4.30-5.70) Hemoglobin 16.0 g/dL (13.0-17.5) Hematocrit 49.2 % (39.0-53.0) Mean Corpuscular Volume 98 fL (79-100) Mean Corpuscular Hemoglobin 32 pg (25-35) Mean Corpuscular Hemoglobin Concent 33 g/dL (31-37) Red Cell Distribution Width 16.6 % (11.5-14.5) Platelet Count 126 x10^3/uL (140-400) Sodium Level 131 mmol/L (136-145) Potassium Level 5.2 mmol/L (3.5-5.1) Chloride Level 96 mmol/L (98-107) Carbon Dioxide Level 21 mmol/L (21-32) Anion Gap 14 (6-14) Blood Urea Nitrogen 43 mg/dL (8-26) Creatinine 2.1 mg/dL (0.7-1.3) Estimated GFR (Cockcroft-Gault) 30.2 Glucose Level 108 mg/dL (70-99) Calcium Level 8.9 mg/dL (8.5-10.1) O2 Saturation 98 % (92-99) Arterial Blood pH 7.61 (7.35-7.45) Arterial Blood pCO2 at Patient Temp 26 mmHg (35-46) Arterial Blood pO2 at Patient Temp 92 mmHg (65-108) Arterial Blood HCO3 25 mmol/L (21-28) Arterial Blood Base Excess 5 mmol/L (-3-3) FiO2 50 Laboratory Tests Test 08/16/20 19:42 08/16/20 20:03 08/16/20 20:30 08/17/20 04:05 Glucose (Fingerstick) 45 mg/dL (70-99) 75 mg/dL (70-99) O2 Saturation 98 % (92-99) Arterial Blood pH 7.21 (7.35-7.45) Arterial Blood pH (Temp corrected) 7.26 Arterial Blood pCO2 at Patient Temp 46 mmHg (35-46) Arterial Blood pCO2 (Temp correct) 39 mmHg Arterial Blood pO2 at Patient Temp 142 mmHg (65-108) Arterial Blood pO2 (Temp corrected) 121 mmHg Arterial Blood HCO3 18 mmol/L (21-28) Arterial Blood Base Excess -10 mmol/L (-3-3) FiO2 100 White Blood Count 21.8 x10^3/uL (4.0-11.0) Red Blood Count 5.03 x10^6/uL (4.30-5.70) Hemoglobin 16.0 g/dL (13.0-17.5) Hematocrit 49.2 % (39.0-53.0) Mean Corpuscular Volume 98 fL (79-100) Mean Corpuscular Hemoglobin 32 pg (25-35) Mean Corpuscular Hemoglobin Concent 33 g/dL (31-37) Red Cell Distribution Width 16.6 % (11.5-14.5) Platelet Count 126 x10^3/uL (140-400) Sodium Level 131 mmol/L (136-145) Potassium Level 5.2 mmol/L (3.5-5.1) Chloride Level 96 mmol/L (98-107) Carbon Dioxide Level 21 mmol/L (21-32) Anion Gap 14 (6-14) Blood Urea Nitrogen 43 mg/dL (8-26) Creatinine 2.1 mg/dL (0.7-1.3) Estimated GFR (Cockcroft-Gault) 30.2 Glucose Level 108 mg/dL (70-99) Calcium Level 8.9 mg/dL (8.5-10.1) Test 08/17/20 07:20 O2 Saturation 98 % (92-99) Arterial Blood pH 7.61 (7.35-7.45) Arterial Blood pCO2 at Patient Temp 26 mmHg (35-46) Arterial Blood pO2 at Patient Temp 92 mmHg (65-108) Arterial Blood HCO3 25 mmol/L (21-28) Arterial Blood Base Excess 5 mmol/L (-3-3) FiO2 50 Medications Active Scripts Medications Dose Route/Sig Max Daily Dose Days Date Category Lasix (Furosemide) 40 Mg Tablet 1 Tab PO DAILY 30 08/16/20 Rx Potassium Chloride (Potassium Chloride) 20 Meq Tablet.er 20 Meq PO DAILY 30 08/16/20 Rx Aldactone (Spironolactone) 25 Mg Tablet 25 Mg PO DAILY@1200 30 08/16/20 Rx Pravastatin Sodium 40 Mg Tablet 1 Tab PO DAILY 12/06/19 Reported Levothyroxine Sodium 75 Mcg Tablet 1 Tab PO DAILY 07/27/19 Reported Tramadol Hcl 50 Mg Tablet 50 Mg PO TID 07/27/19 Reported Ascorbic Acid 500 Mg Tablet 500 Mg PO DAILY 03/28/19 Reported Flomax (Tamsulosin Hcl) 0.4 Mg Cap.er.24h 1 Cap PO DAILY 03/28/19 Reported Xarelto (Rivaroxaban) 20 Mg Tablet 20 Mg PO DAILY 06/26/17 Reported Prozac (Fluoxetine Hcl) 20 Mg Capsule 1 Cap PO DAILYWBKFT 06/26/17 Reported Carvedilol (Carvedilol) 6.25 Mg Tablet 1 Tab PO BID 09/26/16 Reported Fish Oil 1,200 mg Softgel ([place]-3S/Dha/Epa/Fish Oil) 1 Each Capsule 1 Each PO DAILY 04/06/16 Reported Multiple Vitamins (Multivitamin) 1 Each Tablet 1 Each PO DAILY 10/22/15 Reported Finasteride 5 Mg Tablet 1 Tab PO DAILY 10/22/15 Reported Children's Aspirin (Aspirin) 81 Mg Tab.chew 81 Mg PO 10/22/15 Reported Impression . Full note dictated Acute hypoxemic respiratory failure secondary to in-house cardio pulmonary arrest secondary to PEA nonischemic cardiomyopathy Continue current support See orders PRIETO SUNG MD Aug 17, 2020 14:07
[2020-08-17] MEDS: DOXYCYCLINE HYCLATE 100 MG in IV DEXTROSE 5% 100ML 100 ML IV SCH ×2 (15:03→20:24)
[2020-08-17 15:20] LABS: BILIRUBIN,URINE MODERATE (NEG); CLARITY,URINE CLEAR; COLOR,URINE ORANGE; NITRITE,URINE NEGATIVE (NEG); PH,URINE 5.5 (<5.0-8.0); PROTEIN,URINE 100 mg/dL (NEG-TRACE)
--- NOTE | 2020-08-17 15:39 | NUR ---
SS following up with discharge planning. SS reviewed pt chart and discussed with pt RN. Pt is currently on the vent at 50%. Per RN, pt coded two times yesterday. Not stable. Pt on Levophed, IV Zosyn, and IV Doxycycline. Full Code. Per RN, code status has been discussed with family. SS will continue to follow for discharge planning.
[2020-08-17 15:46] LABS: HYALINE CASTS, URINE MODERATE /HPF
[2020-08-17 15:48] LABS: BACTERIA,URINE FEW /HPF (0-FEW)
[2020-08-17 16:05] LABS: GRANULAR CASTS,URINE FEW /HPF; RBC CASTS,URINE OCCASIONAL /HPF
--- NOTE | 2020-08-17 17:12 | NUR ---
Wound Care wound care previously signed off for leg wounds, new consult received for abrasions to chest. Photo assessed and abrasions are scabbed, no open wounds. Recommend to paint with skin prep and leave [facility]. Please reconsult if new wounds develop. Thank you!
[2020-08-17] MEDS: ATORVASTATIN CALCIUM 10 MG TABLET. PO SCH (20:24)
--- NOTE | 2020-08-17 20:57 | CONS ---
DATE OF CONSULTATION: 08/17/2020 ATTENDING PHYSICIAN: Fabrice Hare MD CONSULTING PHYSICIAN: Prieto Sung MD REASON FOR CONSULTATION: The patient is seen in pulmonary consultation at the request of Dr. Hare for acute in-hospital cardiac arrest, PEA, currently on mechanical ventilation. HISTORY OF PRESENT ILLNESS: The patient is an 85-year-old who presented on the of this month with acute on chronic heart failure with previous cardiomyopathy, ejection fraction of 15% to 20%. He has chronic atrial fibrillation. The patient was admitted, was undergoing IV Lasix. Early this morning, the patient had a cardiac arrest. The Emergency Room physician responded to his arrest. Apparently, the patient's lost pulse was noted to be in PEA. Accu-Chek was obtained. Blood sugar was noted to be 45. The patient was intubated. He had a total of 3 mg of epinephrine, 3 amps of sodium bicarbonate, 2 amps of dextrose with spontaneous return of circulation approximately 1944. The patient was transferred to the intensive care unit. He had another code blue at 2035. ACLS was initiated. Once again, the patient went into PEA. CPR was initiated. One round of epinephrine initiated. Successful return of circulation at 2040. Accu-Cheks at that time was 103. The patient is currently on mechanical ventilation, rate of 20, tidal volume of 500, 50%, 5 of PEEP. His labs revealed arterial blood gas; pH of 7.61, PaCO2 of 26, pO2 of 92. White count was elevated. Hemoglobin and hematocrit were noted. Electrolytes were deranged. BUN was elevated. Creatinine was elevated. A chest x-ray was reviewed. There is bilateral pulmonary infiltrates compatible with CHF. PAST MEDICAL HISTORY: Remarkable for chronic AFib, coronary artery disease, chronic heart failure, hypertension, hyperlipidemia, severe nonischemic cardiomyopathy, previous pneumonia, previous CVA, gastroesophageal reflux, BPH, hypothyroidism. PAST SURGICAL HISTORY: Status post arthroplasty, arthroscopy, cholecystectomy, and hernia repair. FAMILY HISTORY: Heart disease. SOCIAL HISTORY: There is no history of tobacco dependence. ALLERGIES: No known drug allergies. REVIEW OF SYSTEMS: Unobtainable secondary to the patient's condition. Currently on mechanical support, has assist control ventilation, 5 of PEEP, 50%. PHYSICAL EXAMINATION: VITAL SIGNS: The patient is in no respiratory distress. LUNGS: Anteriorly were clear. CARDIOVASCULAR: Regular rate and rhythm with S1, S2, no S3. ABDOMEN: Soft, nontender, nondistended. EXTREMITIES: No clubbing, cyanosis. Minimal edema. NEUROLOGICAL: The patient was sedated. LABORATORY DATA: Electrolytes were noted. BUN and creatinine were elevated. Potassium was elevated. Arterial blood gases indicated above. IMPRESSION: 1. Acute hypoxemic respiratory failure secondary to in-house cardiopulmonary arrest x 2. The patient was found in PEA. 2. Nonischemic cardiomyopathy with ejection fraction of 15% to 20%. 3. Chronic diastolic and systolic heart failure. 4. Chronic obstructive pulmonary disease. 5. Hypertension. 6. Chronic anemia. 7. Secondary pulmonary hypertension. 8. Coronary artery disease with previous stenting of the LAD in 2016. 9. Chronic atrial fibrillation. 10. History of cerebrovascular accident with right-sided hemiparesis. 11. Acute on chronic kidney disease. 12. Hypothyroidism. PLAN: 1. We will adjust minute ventilation to normalize pH. 2. Continue support with diuresis. 3. Norepinephrine to maintain mean arterial pressure above 60. 4. Follow Cardiology input. I do appreciate the privilege in sharing in the patient's care. PRIETO SUNG MD DR: ADRIAN/christiano JOB#: [id number] / [id number]
[2020-08-18] VITALS (26 sets, daily range): BP systolic 82–121; BP diastolic 54–95
[2020-08-18] MEDS: NOREPINEPHRINE VIAL 8 MG in IV DEXTROSE 5% 250 ML IV PRN ×4 (01:27→21:19)
[2020-08-18] MEDS: PIPERACILLIN/TAZOBACTAM 2.25 GM in IV NORMAL SALINE 50ML 50 ML IV SCH ×3 (05:48→21:57)
[2020-08-18] MEDS: LEVOTHYROXINE 88 MCG TABLET PO SCH (05:48)
--- NOTE | 2020-08-18 07:56 | PDOC ---
Infectious Disease Note Vital Signs: Vital Signs Vital Signs Date Time Temp Pulse Resp B/P (MAP) Pulse Ox O2 Delivery O2 Flow Rate FiO2 08/18/20 07:00 92 18 109/61 (77) 100 Ventilator 08/18/20 04:00 99.2 99.2 08/17/20 20:01 4.0 Medications: Inpatient Meds: Current Medications Medications (Trade) Dose Ordered Sig/Nazia Start Time Stop Time Status Last Admin Dose Admin Albuterol Sulfate (Ventolin Neb Soln) 2.5 mg PRN TID PRN 08/15/20 23:30 08/16/20 14:21 2.5 MG Alprazolam (Xanax) 0.25 mg PRN Q6HRS PRN 08/16/20 14:00 08/16/20 14:10 0.25 MG Ascorbic Acid (Vitamin C) 500 mg DAILY 08/13/20 09:00 08/17/20 08:22 500 MG Aspirin (Aspirin Chewable) 81 mg DAILYWBKFT 08/13/20 08:00 08/17/20 14:43 DC 08/16/20 08:49 81 MG Atorvastatin Calcium (Lipitor) 10 mg QHS 08/13/20 21:00 08/17/20 20:24 10 MG Carvedilol (Coreg) 6.25 mg BIDWMEALS 08/13/20 08:00 08/17/20 14:43 DC 08/16/20 16:24 6.25 MG Cefepime HCl (Maxipime) 2 gm Q24H 08/18/20 11:00 08/17/20 12:26 DC Dextrose (Dextrose 50%-Water Syringe) 50 gm STK-MED ONCE 08/16/20 20:00 08/17/20 08:50 DC Doxycycline Hyclate 100 mg/ Dextrose 100 ml @ 50 mls/hr Q12HR 08/17/20 13:00 08/17/20 20:24 50 MLS/HR Fentanyl Citrate 30 ml @ 0 mls/hr CONT PRN 08/16/20 20:30 08/17/20 19:27 1.25 MLS/HR Finasteride (Proscar) 5 mg DAILY 08/13/20 09:00 08/17/20 08:22 5 MG Fish Oil (Fish Oil) 1,000 mg DAILY 08/13/20 09:00 08/17/20 08:22 1,000 MG Fluoxetine HCl (PROzac) 20 mg DAILYWBKFT 08/13/20 08:00 08/17/20 08:22 20 MG Furosemide (Lasix) 40 mg [id number] 08/13/20 09:00 08/16/20 14:04 DC 08/16/20 08:50 40 MG Info (Anti-Coagulation Monitoring By Pharmacy) 1 each PRN DAILY PRN 08/17/20 08:15 08/17/20 12:17 1 EACH Levothyroxine Sodium (Synthroid) 88 mcg DAILY06 08/14/20 06:00 08/18/20 05:48 88 MCG Midazolam HCl 100 ml @ 1 mls/hr CONT PRN 08/16/20 21:00 08/17/20 12:32 5 MLS/HR Multivitamins (Thera M Plus) 1 tab DAILY 08/13/20 09:00 08/17/20 08:23 1 TAB Nitroglycerin (Nitrostat) 0.4 mg PRN Q5MIN PRN 08/12/20 20:00 08/13/20 19:59 DC Norepinephrine Bitartrate 8 mg/ Dextrose 258 ml @ 16.177 mls/ hr CONT PRN 08/16/20 21:00 08/18/20 01:27 48.53 MLS/HR Pantoprazole Sodium (PROTONIX VIAL for IV PUSH) 40 mg DAILYAC 08/17/20 09:30 08/17/20 09:38 40 MG Piperacillin Sod/ Tazobactam Sod 2.25 gm/Sodium Chloride 50 ml @ 100 mls/hr Q8HRS 08/17/20 13:00 08/18/20 05:48 100 MLS/HR Potassium Chloride (Klor-Con) 20 meq TIDWMEALS 08/14/20 09:00 08/17/20 14:43 DC 08/16/20 17:32 20 MEQ Propofol 100 ml @ 0 mls/hr CONT PRN 08/16/20 20:30 08/16/20 20:34 5 MLS/HR Rivaroxaban (Xarelto) 15 mg DAILYWBKFT 08/14/20 08:00 08/17/20 14:43 DC 08/16/20 08:50 15 MG Spironolactone (Aldactone) 25 mg DAILY@1200 08/14/20 12:00 08/17/20 14:43 DC 08/16/20 14:11 25 MG Tamsulosin HCl (Flomax) 0.4 mg DAILY 08/13/20 09:00 08/17/20 08:23 0.4 MG Tramadol HCl (Ultram) 100 mg PRN QHS PRN 08/12/20 23:15 Vancomycin HCl (Vanco Per Pharmacy) 1 each PRN DAILY PRN 08/17/20 09:30 08/17/20 12:26 DC 08/17/20 12:04 1 EACH Vancomycin HCl (Vancomycin Random Level) 1 each 1X ONCE 08/18/20 10:00 08/17/20 12:28 DC Vancomycin HCl 1.75 gm/Sodium Chloride 500 ml @ 250 mls/hr 1X ONCE 08/17/20 10:00 08/17/20 11:59 DC 08/17/20 09:39 250 MLS/HR Vancomycin HCl 1 gm/Sodium Chloride 250 ml @ 250 mls/hr Q24H 08/17/20 09:00 UNV Labs: Lab Laboratory Tests Test 08/17/20 14:45 Urine Collection Type Unknown Urine Color [place] Urine Clarity Clear Urine pH 5.5 (<5.0-8.0) Urine Specific [place] 1.020 (1.000-1.030) Urine Protein 100 mg/dL (NEG-TRACE) Urine Glucose (UA) Negative mg/dL (NEG) Urine Ketones (Stick) Trace mg/dL (NEG) Urine Blood Large (NEG) Urine Nitrite Negative (NEG) Urine Bilirubin Moderate (NEG) Urine Urobilinogen Dipstick 4.0 mg/dL (0.2 mg/dL) Urine Leukocyte Esterase Small (NEG) Urine RBC 11-20 /HPF (0-2) Urine WBC 1-4 /HPF (0-4) Urine Squamous Epithelial Cells Occ /LPF Urine Bacteria Few /HPF (0-FEW) Urine Hyaline Casts Moderate /HPF Urine Granular Casts Few /HPF Urine Red Blood Cell Casts Occasional /HPF Urine Mucus Slight /LPF Objective: Assessment: 1. Status post cardiac arrest, PEA. 2. Acute on chronic hypoxic respiratory failure. 3. Acute on chronic congestive heart failure. 4. Leukocytosis, likely reactive, but could have a component of aspiration. 5. Encephalopathy likely anoxic 6. Acute kidney injury on chronic kidney disease. 7. Chronic atrial fibrillation. 8. Cardiomyopathy. 9. History of cerebrovascular accident with hemiparesis. 10. Hyperbilirubinemia. 11. History of noncompliance. Plan: Plan of Care Continue Zosyn. Follow up labs and cultures. Continue supportive care. Critically ill. Overall prognosis is poor. Discussed with nursing staff. YAHAIRA GARY MD Aug 18, 2020 07:56
--- NOTE | 2020-08-18 08:22 | NUR ---
Unable to dopple dorsalis pedis pulse in the right foot, Foot is red, with purple discoloration to the great toe and across the ball of the foot. Foot is also cold. Dr. Nura Hung here to see pt and notified of assessment. A weak doppled post tib pulse located and marked.
[2020-08-18 08:26] LABS: BASE EXCESS ABG 7 mmol/L (-3-3); HCO3 ABG 30 mmol/L (21-28); PCO2 ABG 37 mmHg (35-46); PO2 ABG 139 mmHg (65-108); SAT O2 ABG 99 % (92-99)
--- NOTE | 2020-08-18 08:35 | PDOC ---
Infectious Disease Note Subjective: Subjective Patient intubated, responsive Off sedation On pressors Vital Signs: Vital Signs Vital Signs Date Time Temp Pulse Resp B/P (MAP) Pulse Ox O2 Delivery O2 Flow Rate FiO2 08/18/20 08:00 98.9 95 18 116/70 (85) 100 Ventilator 98.9 08/17/20 20:01 4.0 Physical Exam: PHYSICAL EXAM GENERAL: Intubated, unresponsive HEENT: Normocephalic, atraumatic. ETT and OG tube in place. NECK: Supple. LUNGS: Coarse breath sounds. HEART: S1, S2 irregular. ABDOMEN: Soft. Bowel sounds present, mildly distended. EXTREMITIES: Purplish blue toes. Edema present. Cold clammy right lower extremity GENITOURINARY: Pastor in place. Dark colored urine. DERMATOLOGIC: No generalized rash, abrasions present over the anterior chest wall and anterior lower extremities. NEUROLOGIC: Unresponsive PSYCHIATRIC: Unable to assess. Medications: Inpatient Meds: Current Medications Medications (Trade) Dose Ordered Sig/Nazia Start Time Stop Time Status Last Admin Dose Admin Albuterol Sulfate (Ventolin Neb Soln) 2.5 mg PRN TID PRN 08/15/20 23:30 08/16/20 14:21 2.5 MG Alprazolam (Xanax) 0.25 mg PRN Q6HRS PRN 08/16/20 14:00 08/16/20 14:10 0.25 MG Ascorbic Acid (Vitamin C) 500 mg DAILY 08/13/20 09:00 08/17/20 08:22 500 MG Aspirin (Aspirin Chewable) 81 mg DAILYWBKFT 08/13/20 08:00 08/17/20 14:43 DC 08/16/20 08:49 81 MG Atorvastatin Calcium (Lipitor) 10 mg QHS 08/13/20 21:00 08/17/20 20:24 10 MG Carvedilol (Coreg) 6.25 mg BIDWMEALS 08/13/20 08:00 08/17/20 14:43 DC 08/16/20 16:24 6.25 MG Cefepime HCl (Maxipime) 2 gm Q24H 08/18/20 11:00 08/17/20 12:26 DC Dextrose (Dextrose 50%-Water Syringe) 50 gm STK-MED ONCE 08/16/20 20:00 08/17/20 08:50 DC Doxycycline Hyclate 100 mg/ Dextrose 100 ml @ 50 mls/hr Q12HR 08/17/20 13:00 08/17/20 20:24 50 MLS/HR Fentanyl Citrate 30 ml @ 0 mls/hr CONT PRN 08/16/20 20:30 08/17/20 19:27 1.25 MLS/HR Finasteride (Proscar) 5 mg DAILY 08/13/20 09:00 08/17/20 08:22 5 MG Fish Oil (Fish Oil) 1,000 mg DAILY 08/13/20 09:00 08/17/20 08:22 1,000 MG Fluoxetine HCl (PROzac) 20 mg DAILYWBKFT 08/13/20 08:00 08/17/20 08:22 20 MG Furosemide (Lasix) 40 mg [id number] 08/13/20 09:00 08/16/20 14:04 DC 08/16/20 08:50 40 MG Info (Anti-Coagulation Monitoring By Pharmacy) 1 each PRN DAILY PRN 08/17/20 08:15 08/17/20 12:17 1 EACH Levothyroxine Sodium (Synthroid) 88 mcg DAILY06 08/14/20 06:00 08/18/20 05:48 88 MCG Midazolam HCl 100 ml @ 1 mls/hr CONT PRN 08/16/20 21:00 08/17/20 12:32 5 MLS/HR Multivitamins (Thera M Plus) 1 tab DAILY 08/13/20 09:00 08/17/20 08:23 1 TAB Nitroglycerin (Nitrostat) 0.4 mg PRN Q5MIN PRN 08/12/20 20:00 08/13/20 19:59 DC Norepinephrine Bitartrate 8 mg/ Dextrose 258 ml @ 16.177 mls/ hr CONT PRN 08/16/20 21:00 08/18/20 01:27 48.53 MLS/HR Pantoprazole Sodium (PROTONIX VIAL for IV PUSH) 40 mg DAILYAC 08/17/20 09:30 08/17/20 09:38 40 MG Piperacillin Sod/ Tazobactam Sod 2.25 gm/Sodium Chloride 50 ml @ 100 mls/hr Q8HRS 08/17/20 13:00 08/18/20 05:48 100 MLS/HR Potassium Chloride (Klor-Con) 20 meq TIDWMEALS 08/14/20 09:00 08/17/20 14:43 DC 08/16/20 17:32 20 MEQ Propofol 100 ml @ 0 mls/hr CONT PRN 08/16/20 20:30 08/16/20 20:34 5 MLS/HR Rivaroxaban (Xarelto) 15 mg DAILYWBKFT 08/14/20 08:00 08/17/20 14:43 DC 08/16/20 08:50 15 MG Spironolactone (Aldactone) 25 mg DAILY@1200 08/14/20 12:00 08/17/20 14:43 DC 08/16/20 14:11 25 MG Tamsulosin HCl (Flomax) 0.4 mg DAILY 08/13/20 09:00 08/17/20 08:23 0.4 MG Tramadol HCl (Ultram) 100 mg PRN QHS PRN 08/12/20 23:15 Vancomycin HCl (Vanco Per Pharmacy) 1 each PRN DAILY PRN 08/17/20 09:30 08/17/20 12:26 DC 08/17/20 12:04 1 EACH Vancomycin HCl (Vancomycin Random Level) 1 each 1X ONCE 08/18/20 10:00 08/17/20 12:28 DC Vancomycin HCl 1.75 gm/Sodium Chloride 500 ml @ 250 mls/hr 1X ONCE 08/17/20 10:00 08/17/20 11:59 DC 08/17/20 09:39 250 MLS/HR Vancomycin HCl 1 gm/Sodium Chloride 250 ml @ 250 mls/hr Q24H 08/17/20 09:00 UNV Labs: Lab Laboratory Tests Test 08/17/20 14:45 Urine Collection Type Unknown Urine Color [place] Urine Clarity Clear Urine pH 5.5 (<5.0-8.0) Urine Specific [place] 1.020 (1.000-1.030) Urine Protein 100 mg/dL (NEG-TRACE) Urine Glucose (UA) Negative mg/dL (NEG) Urine Ketones (Stick) Trace mg/dL (NEG) Urine Blood Large (NEG) Urine Nitrite Negative (NEG) Urine Bilirubin Moderate (NEG) Urine Urobilinogen Dipstick 4.0 mg/dL (0.2 mg/dL) Urine Leukocyte Esterase Small (NEG) Urine RBC 11-20 /HPF (0-2) Urine WBC 1-4 /HPF (0-4) Urine Squamous Epithelial Cells Occ /LPF Urine Bacteria Few /HPF (0-FEW) Urine Hyaline Casts Moderate /HPF Urine Granular Casts Few /HPF Urine Red Blood Cell Casts Occasional /HPF Urine Mucus Slight /LPF Objective: Assessment: 1. Status post cardiac arrest, PEA. 2. Acute on chronic hypoxic respiratory failure. 3. Acute on chronic congestive heart failure. 4. Leukocytosis, likely reactive, but could have a component of aspiration. 5. Encephalopathy likely anoxic 6. Acute kidney injury on chronic kidney disease. 7. Chronic atrial fibrillation. 8. Cardiomyopathy. 9. History of cerebrovascular accident with hemiparesis. 10. Hyperbilirubinemia. 11. History of noncompliance. Plan: Plan of Care Continue Zosyn. Follow up labs and cultures. Continue supportive care. Critically ill. Overall prognosis is poor. Discussed with nursing staff. YAHAIRA GARY MD Aug 18, 2020 08:35
[2020-08-18 08:41] LABS: FIO2 ABG 50/VENT
--- NOTE | 2020-08-18 08:54 | PDOC ---
Provider Note Date of Service: DATE: 08/18/20 TIME: 08:53 Provider Note still unresponsive off sedation, labs pending, cxr bad- d/w yesterday, will get neuro consult re post code assess, she will make him dnr if poor prognosis as it appears to be Justifications for Admission Other Justification VERENICE BLOOD MD Aug 18, 2020 08:54
[2020-08-18] MEDS: traMADol 50 MG TABLET PO SCH ×3 (09:00→19:39)
[2020-08-18] MEDS: MULTIVITAMIN with MINERAL TABLET. PO SCH (09:03)
[2020-08-18] MEDS: FINASTERIDE 5 MG TABLET. PO SCH (09:03)
[2020-08-18] MEDS: FLUoxetine HCL 20 MG CAPSULE PO SCH (09:03)
[2020-08-18] MEDS: OMEGA-3 FATTY ACIDS/FISH OIL 1,000 MG CAPSULE. PO SCH (09:03)
[2020-08-18] MEDS: ASCORBIC ACID 500 MG TABLET PO SCH (09:03)
[2020-08-18] MEDS: PANTOPRAZOLE IV PUSH 40 MG VIAL. IVP SCH (09:03)
[2020-08-18] MEDS: TAMSULOSIN 0.4 MG CAP.ER.24H. PO SCH (09:03)
[2020-08-18] MEDS: DOXYCYCLINE HYCLATE 100 MG in IV DEXTROSE 5% 100ML 100 ML IV SCH ×2 (09:09→21:18)
--- NOTE | 2020-08-18 09:54 | PDOC ---
PULMONARY PROGRESS NOTES DATE: 08/18/20 TIME: 09:45 Subjective Remains on vent 50% bloody gastric contents on levophed gtt Sedation has been off since 0715 on 08/18/20 Vitals Vital Signs Date Time Temp Pulse Resp B/P (MAP) Pulse Ox O2 Delivery O2 Flow Rate FiO2 08/18/20 09:25 Ventilator 08/18/20 09:20 100 08/18/20 08:00 98.9 95 18 116/70 (85) 98.9 08/17/20 20:01 4.0 Comments intubated Lungs: Crackles Cardiovascular: S1, S2 Abdomen: Soft, Non-tender Extremities: Other Skin: Other (RLE cyansosis, cold and pulseless ) Labs Laboratory Tests Test 08/16/20 19:42 08/16/20 20:03 08/16/20 20:30 08/17/20 04:05 Glucose (Fingerstick) 45 mg/dL (70-99) 75 mg/dL (70-99) O2 Saturation 98 % (92-99) Arterial Blood pH 7.21 (7.35-7.45) Arterial Blood pH (Temp corrected) 7.26 Arterial Blood pCO2 at Patient Temp 46 mmHg (35-46) Arterial Blood pCO2 (Temp correct) 39 mmHg Arterial Blood pO2 at Patient Temp 142 mmHg (65-108) Arterial Blood pO2 (Temp corrected) 121 mmHg Arterial Blood HCO3 18 mmol/L (21-28) Arterial Blood Base Excess -10 mmol/L (-3-3) FiO2 100 White Blood Count 21.8 x10^3/uL (4.0-11.0) Red Blood Count 5.03 x10^6/uL (4.30-5.70) Hemoglobin 16.0 g/dL (13.0-17.5) Hematocrit 49.2 % (39.0-53.0) Mean Corpuscular Volume 98 fL (79-100) Mean Corpuscular Hemoglobin 32 pg (25-35) Mean Corpuscular Hemoglobin Concent 33 g/dL (31-37) Red Cell Distribution Width 16.6 % (11.5-14.5) Platelet Count 126 x10^3/uL (140-400) Sodium Level 131 mmol/L (136-145) Potassium Level 5.2 mmol/L (3.5-5.1) Chloride Level 96 mmol/L (98-107) Carbon Dioxide Level 21 mmol/L (21-32) Anion Gap 14 (6-14) Blood Urea Nitrogen 43 mg/dL (8-26) Creatinine 2.1 mg/dL (0.7-1.3) Estimated GFR (Cockcroft-Gault) 30.2 Glucose Level 108 mg/dL (70-99) Calcium Level 8.9 mg/dL (8.5-10.1) Test 08/17/20 07:20 08/17/20 14:45 08/18/20 08:00 O2 Saturation 98 % (92-99) 99 % (92-99) Arterial Blood pH 7.61 (7.35-7.45) 7.53 (7.35-7.45) Arterial Blood pCO2 at Patient Temp 26 mmHg (35-46) 37 mmHg (35-46) Arterial Blood pO2 at Patient Temp 92 mmHg (65-108) 139 mmHg (65-108) Arterial Blood HCO3 25 mmol/L (21-28) 30 mmol/L (21-28) Arterial Blood Base Excess 5 mmol/L (-3-3) 7 mmol/L (-3-3) FiO2 50 50/vent Urine Collection Type Unknown Urine Color [place] Urine Clarity Clear Urine pH 5.5 (<5.0-8.0) Urine Specific [place] 1.020 (1.000-1.030) Urine Protein 100 mg/dL (NEG-TRACE) Urine Glucose (UA) Negative mg/dL (NEG) Urine Ketones (Stick) Trace mg/dL (NEG) Urine Blood Large (NEG) Urine Nitrite Negative (NEG) Urine Bilirubin Moderate (NEG) Urine Urobilinogen Dipstick 4.0 mg/dL (0.2 mg/dL) Urine Leukocyte Esterase Small (NEG) Urine RBC 11-20 /HPF (0-2) Urine WBC 1-4 /HPF (0-4) Urine Squamous Epithelial Cells Occ /LPF Urine Bacteria Few /HPF (0-FEW) Urine Hyaline Casts Moderate /HPF Urine Granular Casts Few /HPF Urine Red Blood Cell Casts Occasional /HPF Urine Mucus Slight /LPF Laboratory Tests Test 08/17/20 14:45 08/18/20 08:00 Urine Collection Type Unknown Urine Color [place] Urine Clarity Clear Urine pH 5.5 (<5.0-8.0) Urine Specific [place] 1.020 (1.000-1.030) Urine Protein 100 mg/dL (NEG-TRACE) Urine Glucose (UA) Negative mg/dL (NEG) Urine Ketones (Stick) Trace mg/dL (NEG) Urine Blood Large (NEG) Urine Nitrite Negative (NEG) Urine Bilirubin Moderate (NEG) Urine Urobilinogen Dipstick 4.0 mg/dL (0.2 mg/dL) Urine Leukocyte Esterase Small (NEG) Urine RBC 11-20 /HPF (0-2) Urine WBC 1-4 /HPF (0-4) Urine Squamous Epithelial Cells Occ /LPF Urine Bacteria Few /HPF (0-FEW) Urine Hyaline Casts Moderate /HPF Urine Granular Casts Few /HPF Urine Red Blood Cell Casts Occasional /HPF Urine Mucus Slight /LPF O2 Saturation 99 % (92-99) Arterial Blood pH 7.53 (7.35-7.45) Arterial Blood pCO2 at Patient Temp 37 mmHg (35-46) Arterial Blood pO2 at Patient Temp 139 mmHg (65-108) Arterial Blood HCO3 30 mmol/L (21-28) Arterial Blood Base Excess 7 mmol/L (-3-3) FiO2 50/vent Medications Active Scripts Medications Dose Route/Sig Max Daily Dose Days Date Category Lasix (Furosemide) 40 Mg Tablet 1 Tab PO DAILY 30 08/16/20 Rx Potassium Chloride (Potassium Chloride) 20 Meq Tablet.er 20 Meq PO DAILY 30 08/16/20 Rx Aldactone (Spironolactone) 25 Mg Tablet 25 Mg PO DAILY@1200 30 08/16/20 Rx Pravastatin Sodium 40 Mg Tablet 1 Tab PO DAILY 12/06/19 Reported Levothyroxine Sodium 75 Mcg Tablet 1 Tab PO DAILY 07/27/19 Reported Tramadol Hcl 50 Mg Tablet 50 Mg PO TID 07/27/19 Reported Ascorbic Acid 500 Mg Tablet 500 Mg PO DAILY 03/28/19 Reported Flomax (Tamsulosin Hcl) 0.4 Mg Cap.er.24h 1 Cap PO DAILY 03/28/19 Reported Xarelto (Rivaroxaban) 20 Mg Tablet 20 Mg PO DAILY 06/26/17 Reported Prozac (Fluoxetine Hcl) 20 Mg Capsule 1 Cap PO DAILYWBKFT 06/26/17 Reported Carvedilol (Carvedilol) 6.25 Mg Tablet 1 Tab PO BID 09/26/16 Reported Fish Oil 1,200 mg Softgel ([place]-3S/Dha/Epa/Fish Oil) 1 Each Capsule 1 Each PO DAILY 04/06/16 Reported Multiple Vitamins (Multivitamin) 1 Each Tablet 1 Each PO DAILY 10/22/15 Reported Finasteride 5 Mg Tablet 1 Tab PO DAILY 10/22/15 Reported Children's Aspirin (Aspirin) 81 Mg Tab.chew 81 Mg PO 10/22/15 Reported Comments CXR IMPRESSION: Worsening right lung infiltrate or pulmonary edema. Stable left lung infiltrate or pulmonary edema. No pneumothorax. Impression . IMPRESSION: 1. Acute hypoxemic respiratory failure secondary to in-house cardiopulmonary arrest x 2. The patient was found in PEA. 2. Nonischemic cardiomyopathy with ejection fraction of 15% to 20%. 3. Chronic diastolic and systolic heart failure. 4. Chronic obstructive pulmonary disease. 5. Hypertension. 6. Chronic anemia. 7. Secondary pulmonary hypertension. 8. Coronary artery disease with previous stenting of the LAD in 2016. 9. Chronic atrial fibrillation. 10. History of cerebrovascular accident with right-sided hemiparesis. 11. Acute on chronic kidney disease. 12. Hypothyroidism. 13. Pulseless right Lower ext. Plan . PLAN: Continue vent support Follow ABG/CXR, change vent setting to 14/450/5/40% Off sedation since 0715AM on 08/17-- follow neurology recs Await BLE artieral U/S for concerned pulseless RLE ext. -- consider vascular consult Continue Vasoprssors as needed to Keep MAP above 65 Follow cardiology recs Consult GI and Follow GI recs in regards to GI bleeding Monitor HGB and BMP Start PPN for nutritional support DVT/GI PPX D/W RN and RT Critical Care Time [id number] JESUS MANUEL LYN MD Aug 18, 2020 09:54
[2020-08-18] MEDS ORDERED: VANCOMYCIN RANDOM LEVEL. MC ONE (10:00)
[2020-08-18] MEDS: AMINO AC 3%/ELECTROLYTE/GLYCER 1,000 ML IV SCH ×2 (10:41→22:55)
[2020-08-18] MEDS ORDERED: CEFEPIME HCL IV Push 2 GM VIAL. IVP SCH (11:00)
[2020-08-18 11:01] LABS: HEMATOCRIT 44.9 % (39.0-53.0); HEMOGLOBIN 14.8 g/dL (13.0-17.5); RED BLOOD COUNT 4.67 x10^6/uL (4.30-5.70); RED CELL DISTRIBUTION WIDTH 16.4 % (11.5-14.5); WHITE BLOOD COUNT 15.3 x10^3/uL (4.0-11.0)
--- NOTE | 2020-08-18 11:26 | PDOC2 ---
GI CONSULT Date of Service: DATE: 08/18/20 TIME: 10:44 Reason For Consult: GI bleed HPI: HPI: 85 y/o male admitted last week w/ acute on chronic CHF, now in ICU s/p PEA arrest x 2, intubated, off sedation since this morning. D/w nurse - coffee-ground contents from OG tube (~600cc) since yesterday. No hematochezia/melena. Additionally concern for ischemic RLE. H/o cardiomyopathy, A Fib, CAD, and CVA. Was on Xarelto and ASA. We saw in 11/2019 for hemoccult negative KHUSHI. EGD and colonoscopy 09/28/[address] Cardenas for GI bleeding and anemia: non-e rosive gastritis, internal hemorrhoids, sigmoid/descending colon diverticulosis, retained blood cecum without obvious source. SB source suspected re: KHUSHI then. Was advised to continue iron and PPI and consider SBS or SBCE (and/or repeat EGD and colonoscopy as outpt). Labs note elevated bilirubin. Normal liver on US, CBD 7mm s/p cholecystectomy. 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 PMH: PMH: per chart: A Fib, CAD w/ stent, CHF, HTN, HLD, severe NICM, pneumonia, CVA, OA, CKD, BPH, hypothyroidism arthroscopy, cholecystectomy, hernia repair, thoracentesis FH: Family History: Cancer Social History: Smoke: No ALCOHOL: none Drugs: None ROS: Unable to obtain. Vitals: Vitals: Vital Signs Date Time Temp Pulse Resp B/P (MAP) Pulse Ox O2 Delivery O2 Flow Rate FiO2 08/18/20 10:00 95 20 116/73 (87) 100 Ventilator 08/18/20 08:00 98.9 98.9 08/17/20 20:01 4.0 Labs: Labs: Laboratory Tests Test 08/17/20 14:45 08/18/20 08:00 Urine Collection Type Unknown Urine Color [place] Urine Clarity Clear Urine pH 5.5 (<5.0-8.0) Urine Specific [place] 1.020 (1.000-1.030) Urine Protein 100 mg/dL (NEG-TRACE) Urine Glucose (UA) Negative mg/dL (NEG) Urine Ketones (Stick) Trace mg/dL (NEG) Urine Blood Large (NEG) Urine Nitrite Negative (NEG) Urine Bilirubin Moderate (NEG) Urine Urobilinogen Dipstick 4.0 mg/dL (0.2 mg/dL) Urine Leukocyte Esterase Small (NEG) Urine RBC 11-20 /HPF (0-2) Urine WBC 1-4 /HPF (0-4) Urine Squamous Epithelial Cells Occ /LPF Urine Bacteria Few /HPF (0-FEW) Urine Hyaline Casts Moderate /HPF Urine Granular Casts Few /HPF Urine Red Blood Cell Casts Occasional /HPF Urine Mucus Slight /LPF O2 Saturation 99 % (92-99) Arterial Blood pH 7.53 (7.35-7.45) Arterial Blood pCO2 at Patient Temp 37 mmHg (35-46) Arterial Blood pO2 at Patient Temp 139 mmHg (65-108) Arterial Blood HCO3 30 mmol/L (21-28) Arterial Blood Base Excess 7 mmol/L (-3-3) FiO2 50/vent Allergies: Coded Allergies: No Known Drug Allergies (Unverified , 09/26/16) Medications: Current Medications Medications (Trade) Dose Ordered Sig/Nazia Route PRN Reason Start Time Stop Time Status Last Admin Dose Admin Piperacillin Sod/ Tazobactam Sod 2.25 gm/Sodium Chloride 50 ml @ 100 mls/hr Q8HRS IV 08/17/20 13:00 08/18/20 05:48 Doxycycline Hyclate 100 mg/ Dextrose 100 ml @ 50 mls/hr Q12HR IV 08/17/20 13:00 08/18/20 09:09 Amino Acids/ Glycerin/ Electrolytes 1,000 ml @ 80 mls/hr [id number] IV 08/18/20 10:00 08/18/20 10:41 Imaging: Imaging: CXR 08/12 Moderate cardiomegaly. Diffuse moderate prominent appearing bilateral interstitial lung markings likely chronic interstitial changes. Mild bibasilar lung airspace opacities likely atelectasis or infiltrates. RUQ US 08/13 IMPRESSION: 1. Sliver of perihepatic ascites. 2. Right pleural effusion. 3. Prior cholecystectomy. Echo 08/14 <Conclusion> There is moderate concentric left ventricular hypertrophy. The systolic function is severely impaired. The Ejection Fraction is 15-20%. There is severe global hypokinesis of the left ventricle. RV Systolic function is moderately reduced. Doppler and Color-flow revealed trace to mild mitral regurgitation. Doppler and Color Flow revealed trace tricuspid regurgitation with an estimated PAP of 48 mmHg. There is mild-moderate pulmonary hypertension. Doppler and Color Flow revealed mild pulmonic valvular regurgitation. There is moderate left pleural effusion. CXR 08/16 IMPRESSION: Worsening right lung infiltrate or pulmonary edema. Stable left lung infiltrate or pulmonary edema. No pneumothorax. LE Duplex 08/18 pending PE: GEN: intubated HEENT: Atraumatic LUNGS: vent/clear HEART: RRR ABD: quiet, soft, thin dark brown contents in OG canister EXTREMITY/SKIN: RLE cool, purple-bryan NEURO/PSYCH: unresponsive A/P: A/P: S/p arrest, resp failure, hypotension, ?ischemic RLE Coffee-ground emesis (in OG tube) Leukocytosis, thrombocytopenia, hyperkalemia, SERENA/CKD, elevated bili and AST (checked 08/13) H/o KHUSHI - SB source suspected in past - Hgb normal currently CRC screen - UTD (2017) Diverticulosis, hemorrhoids S/p cholecystectomy H/o cardiomyopathy, A Fib, CAD, CVA - was on Xarelto and ASA -- Agree w/ PPI. Monitor OG tube output and Hgb. Recheck LFTs. LONG CASTANEDA Aug 18, 2020 11:26
[2020-08-18 11:27] LABS: CALCIUM 8.4 mg/dL (8.5-10.1); CREATININE 2.2 mg/dL (0.7-1.3); GFR 28.6; POTASSIUM 4.5 mmol/L (3.5-5.1)
--- NOTE | 2020-08-18 11:59 | PDOC ---
CARDIO Progress Notes Date and Time Date of Service 08/18/20 Time of Evaluation 1200 Subjective Subjective: Other (intubated, off sedation ) Vitals Vitals Vital Signs Date Time Temp Pulse Resp B/P (MAP) Pulse Ox O2 Delivery O2 Flow Rate FiO2 08/18/20 11:00 96 18 121/76 (91) 100 Ventilator 08/18/20 08:00 98.9 98.9 08/17/20 20:01 4.0 Weight Weight [ ] Input and Output Intake and Output Intake and Output 08/18/20 07:00 Intake Total 2053 ml Output Total 1200 ml Balance 853 ml IV Total 2053 ml Output Urine Total 700 ml Gastric Drainage Total 500 ml Laboratory Labs Laboratory Tests Test 08/17/20 14:45 08/18/20 08:00 08/18/20 10:44 Urine Collection Type Unknown Urine Color [place] Urine Clarity Clear Urine pH 5.5 (<5.0-8.0) Urine Specific [place] 1.020 (1.000-1.030) Urine Protein 100 mg/dL (NEG-TRACE) Urine Glucose (UA) Negative mg/dL (NEG) Urine Ketones (Stick) Trace mg/dL (NEG) Urine Blood Large (NEG) Urine Nitrite Negative (NEG) Urine Bilirubin Moderate (NEG) Urine Urobilinogen Dipstick 4.0 mg/dL (0.2 mg/dL) Urine Leukocyte Esterase Small (NEG) Urine RBC 11-20 /HPF (0-2) Urine WBC 1-4 /HPF (0-4) Urine Squamous Epithelial Cells Occ /LPF Urine Bacteria Few /HPF (0-FEW) Urine Hyaline Casts Moderate /HPF Urine Granular Casts Few /HPF Urine Red Blood Cell Casts Occasional /HPF Urine Mucus Slight /LPF O2 Saturation 99 % (92-99) Arterial Blood pH 7.53 (7.35-7.45) Arterial Blood pCO2 at Patient Temp 37 mmHg (35-46) Arterial Blood pO2 at Patient Temp 139 mmHg (65-108) Arterial Blood HCO3 30 mmol/L (21-28) Arterial Blood Base Excess 7 mmol/L (-3-3) FiO2 50/vent White Blood Count 15.3 x10^3/uL (4.0-11.0) Red Blood Count 4.67 x10^6/uL (4.30-5.70) Hemoglobin 14.8 g/dL (13.0-17.5) Hematocrit 44.9 % (39.0-53.0) Mean Corpuscular Volume 96 fL (79-100) Mean Corpuscular Hemoglobin 32 pg (25-35) Mean Corpuscular Hemoglobin Concent 33 g/dL (31-37) Red Cell Distribution Width 16.4 % (11.5-14.5) Platelet Count 113 x10^3/uL (140-400) Sodium Level 133 mmol/L (136-145) Potassium Level 4.5 mmol/L (3.5-5.1) Chloride Level 96 mmol/L (98-107) Carbon Dioxide Level 28 mmol/L (21-32) Anion Gap 9 (6-14) Blood Urea Nitrogen 49 mg/dL (8-26) Creatinine 2.2 mg/dL (0.7-1.3) Estimated GFR (Cockcroft-Gault) 28.6 Glucose Level 119 mg/dL (70-99) Calcium Level 8.4 mg/dL (8.5-10.1) Physical Exam HEENT: Neck Supple W Full Motion Chest: Symmetric LUNGS: Other (mechanical vent ) Heart: RRR Abdomen: Other (non-distended ) Extremities: Other (trace bilateral LE edema, RLE cool to touch, erythma, mottling) Neurology: other (sedated) Assessment Assessment 1. Acute on chronic diastolic/systolic CHF 2. Severe Cardiomyopathy: EF 15-20%. Patient has declined AICD placement. This was again verified this admission prior to intubation 3. S/p PEA arrest x2. BS 45 4. Acute respiratory failure secondary to above. S/p intubation 5. SERENA, hyperkalemia 6. Leukocytosis, probable sepsis; requiring pressor support 7. ? GIB. OB tube with coffee ground content 8. CAD s/p PCI/stent. clinically stable. No VT/VF 8. Hyperlipidemia; statin 9. Chronic AFIB; rate controlled 10. Hx of CVA with right side hemiparesis 11. Mild troponin elevation: suspect demand mediated 12. Hypothyroidism: on replacement 13. PAD; RLE cool to touch. Arterial study with poor visualization of distal po sterior tibial, dorsalis pedis, and peroneal arteries, possible occlusion. 14. Transaminitis Recommendations Bilateral Rook boots ASA, Xarelto held with ? GIB Hold coreg with hypotension. May use IV Dig PRN for rate control Pressor support as warranted Hold Aldactone, Lasix with SERENA PPI Supportive care Will consult vascular given arterial US findings Justicifation of Admission Dx: Justifications for Admission: Justification of Admission Dx: Yes OKSANA PAINTER APRN Aug 18, 2020 11:59
[2020-08-18 12:06] LABS: DIRECT BILIRUBIN 8.5 mg/dL (0.0-0.2); TOTAL BILIRUBIN 11.2 mg/dL (0.2-1.0); TOTAL PROTEIN 5.6 g/dL (6.4-8.2)
--- NOTE | 2020-08-18 13:10 | RAD ---
US RIGHT LOWER EXTREMITY ARTERIAL DUPLEX EVAL Indication: Reason: ischmic rle,pad / Spl. Instructions: / History: Cold right foot. No pedal pulses . Comparison: None. Procedure: Real-time grayscale, color flow Doppler, and Doppler spectral waveform analysis of the art erial system of the lower extremity is performed. Findings: Right lower extremity: Mild to moderate atheromatous plaque. Triphasic or biphasic waveform within th e right common femoral, deep femoral, superficial femoral, popliteal, and anterior tibial arteries. T riphasic waveform within the right proximal posterior tibial artery. The distal posterior tibial rosita ry is not well seen and potentially occluded. Dorsalis pedis artery not identified and potentially oc cluded. Peroneal artery not visualized. IMPRESSION: 1. Right distal posterior tibial, dorsalis pedis and peroneal arteries not identified and potentiall y occluded. CT angiogram can further assess as clinically warranted. 2. Mild to moderate atheromatous plaque. Electronically signed by: Gordon Moncada DO (08/18/2020 1:08 PM) [id number]
--- NOTE | 2020-08-18 15:16 | NUR ---
SS following up with discharge planning. SS reviewed pt chart and discussed with pt RN. Pt is currently on the vent at 40%. Pt on IV Doxycycline and IV Zosyn. PPN. Sedation off but pt not waking up. Per RN, pt's foot is cold and purple. Ultrasound completed and arteries occluded. Pt's RN, left message for Dr. Hare. SS will continue to follow for discharge planning.
--- NOTE | 2020-08-18 15:29 | PDOC2 ---
NEUROLOGY CONSULT Date of Service DOS: DATE: 08/18/20 TIME: 15:09 Reason for Consult Reason for Consult: Postcode Referring Physician Referring Physician: Dr. Hare Source Source: Caregiver (), Chart review, Patient History of Present Illness History of Present Illness The patient is an 85-year-old male with cardiomyopathy admitted on 08/13 with congestive heart failure. On 08/16 he had a pulseless electrical activity cardiac arrest and was coded twice. His temperature was as low as 91 degrees, further hypothermia was not done. He had a left middle cerebral artery stroke in 2017, received alteplase here and then was transferred to , leaving him with right hemiparesis and aphasia (recovered, able to talk and walk). There is no history of seizure. Sedation was lifted this morning. He had declined AICD placement in the past. He has also been noticed to have hypoglycemia, hyperbilirubinemia, and acute kidney injury. Past Medical History Cardiovascular: AFIB, CAD, CHF (EF 15-20%), HTN, Hyperlipidemia Pulmonary: Pneumonia CENTRAL NERVOUS SYSTEM: CVA GI: GERD, GI bleed Heme/Onc: Anemia NOS Musculoskeletal: Osteoarthritis Renal/: Benign prostatic enlarg. Endocrine: Hypothyroidism Past Surgical History Past Surgical History: Cholecystectomy, Hernia Repair (Umbilical), Other (Dental extractions, repair left leg fracture, right foot fracture) Family History Family History: No pertinent hx Social History Social History , ex-smoker, no alcohol Current Medications Current Medications Current Medications Aspirin (Aspirin Chewable) 162 mg 1X ONCE PO Last administered on 08/12/20at 18:53; Start 08/12/20 at 18:15; Stop 08/12/20 at 18:16; Status DC Nitroglycerin (Nitrostat) 0.4 mg PRN Q5MIN PRN SL CHEST PAIN; Start 08/12/20 at 20:00; Stop 08/13/20 at 19:59; Status DC Furosemide (Lasix) 40 mg 1X ONCE IVP Last administered on 08/12/20at 20:34; Start 08/12/20 at 20:00; Stop 08/12/20 at 20:01; Status DC Ascorbic Acid (Vitamin C) 500 mg DAILY PO Last administered on 08/18/20at 09:03; Start 08/13/20 at 09:00 Aspirin (Aspirin Chewable) 81 mg DAILYWBKFT PO Last administered on 08/16/20at 08:49; Start 08/13/20 at 08:00; Stop 08/17/20 at 14:43; Status DC Carvedilol (Coreg) 6.25 mg BIDWMEALS PO Last administered on 08/16/20at 16:24; Start 08/13/20 at 08:00; Stop 08/17/20 at 14:43; Status DC Finasteride (Proscar) 5 mg DAILY PO Last administered on 08/18/20at 09:03; Start 08/13/20 at 09:00 Fluoxetine HCl (PROzac) 20 mg DAILYWBKFT PO Last administered on 08/18/20at 09:03; Start 08/13/20 at 08:00 Levothyroxine Sodium (Synthroid) 75 mcg DAILY06 PO Last administered on 08/13/20at 05:45; Start 08/13/20 at 06:00; Stop 08/13/20 at 08:59; Status DC Tamsulosin HCl (Flomax) 0.4 mg DAILY PO Last administered on 08/18/20at 09:03; Start 08/13/20 at 09:00 Tramadol HCl (Ultram) 50 mg TID PO Last administered on 08/16/20at 14:14; Start 08/13/20 at 09:00 Multivitamins (Thera M Plus) 1 tab DAILY PO Last administered on 08/18/20at 09:03; Start 08/13/20 at 09:00 Fish Oil (Fish Oil) 1,000 mg DAILY PO Last administered on 08/18/20at 09:03; Start 08/13/20 at 09:00 Atorvastatin Calcium (Lipitor) 10 mg QHS PO Last administered on 08/17/20at 20:24; Start 08/13/20 at 21:00 Rivaroxaban (Xarelto) 20 mg DAILY PO Last administered on 08/13/20at 08:44; Start 08/13/20 at 09:00; Stop 08/13/20 at 12:44; Status DC Tramadol HCl (Ultram) 100 mg PRN QHS PRN PO PAIN; Start 08/12/20 at 23:15 Levothyroxine Sodium (Synthroid) 88 mcg DAILY06 PO Last administered on 08/18/20at 05:48; Start 08/14/20 at 06:00 Furosemide (Lasix) 40 mg BID92 IVP Last administered on 08/16/20at 08:50; Start 08/13/20 at 09:00; Stop 08/16/20 at 14:04; Status DC Rivaroxaban (Xarelto) 15 mg DAILYWBKFT PO Last administered on 08/16/20at 08:50; Start 08/14/20 at 08:00; Stop 08/17/20 at 14:43; Status DC Potassium Chloride (Klor-Con) 10 meq TIDWMEALS PO ; Start 08/14/20 at 08:00; Stop 08/14/20 at 08:59; Status DC Potassium Chloride (Klor-Con) 20 meq TIDWMEALS PO Last administered on 08/16/20at 17:32; Start 08/14/20 at 09:00; Stop 08/17/20 at 14:43; Status DC Spironolactone (Aldactone) 25 mg DAILY@1200 PO Last administered on 08/16/20at 14:11; Start 08/14/20 at 12:00; Stop 08/17/20 at 14:43; Status DC Albuterol Sulfate (Ventolin Neb Soln) 2.5 mg PRN TID PRN NEB SHORTNESS OF BREATH Last administered on 08/16/20at 14:21; Start 08/15/20 at 23:30 Alprazolam (Xanax) 0.25 mg PRN Q6HRS PRN PO ANXIETY / AGITATION Last administered on 08/16/20at 14:10; Start 08/16/20 at 14:00 Dextrose (Dextrose 50%-Water Syringe) 25 gm STK-MED ONCE IV ; Start 08/16/20 at 19:44; Stop 08/16/20 at 19:44; Status DC Dextrose (Dextrose 50%-Water Syringe) 25 gm STK-MED ONCE IV ; Start 08/16/20 at 20:05; Stop 08/16/20 at 20:06; Status DC Propofol 100 ml @ As Directed STK-MED ONCE IV ; Start 08/16/20 at 20:28; Stop 08/16/20 at 20:28; Status DC Fentanyl Citrate 30 ml @ 0 mls/hr CONT PRN IV SEE PROTOCOL Last administered on 08/17/20at 19:27; Start 08/16/20 at 20:30 Propofol 100 ml @ 0 mls/hr CONT PRN IV PER PROTOCOL Last administered on 08/16/20at 20:34; Start 08/16/20 at 20:30 Norepinephrine Bitartrate 8 mg/ Dextrose 258 ml @ 16.177 mls/ hr CONT PRN IV PER PROTOCOL Last administered on 08/18/20at 15:04; Start 08/16/20 at 21:00 Midazolam HCl 100 ml @ 1 mls/hr CONT PRN IV SEE I/O RECORD Last administered on 08/17/20at 12:32; Start 08/16/20 at 21:00 Info (Anti-Coagulation Monitoring By Pharmacy) 1 each PRN DAILY PRN MC SEE COMMENTS Last administered on 08/17/20at 12:17; Start 08/17/20 at 08:15 Dextrose (Dextrose 50%-Water Syringe) 50 gm STK-MED ONCE IV ; Start 08/16/20 at 20:00; Stop 08/17/20 at 08:50; Status DC Vancomycin HCl 1 gm/Sodium Chloride 250 ml @ 250 mls/hr Q24H IV ; Start 08/17/20 at 09:00; Status UNV Cefepime HCl (Maxipime) 2 gm Q8HRS IVP Last administered on 08/17/20at 11:23; Start 08/17/20 at 10:00; Stop 08/17/20 at 11:49; Status DC Pantoprazole Sodium (PROTONIX VIAL for IV PUSH) 40 mg DAILYAC IVP Last administered on 08/18/20at 09:03; Start 08/17/20 at 09:30 Vancomycin HCl (Vanco Per Pharmacy) 1 each PRN DAILY PRN MC SEE COMMENTS Last administered on 08/17/20at 12:04; Start 08/17/20 at 09:30; Stop 08/17/20 at 12:26; Status DC Vancomycin HCl 1.75 gm/Sodium Chloride 500 ml @ 250 mls/hr 1X ONCE IV Last administered on 08/17/20at 09:39; Start 08/17/20 at 10:00; Stop 08/17/20 at 11:59; Status DC Cefepime HCl (Maxipime) 2 gm Q24H IVP ; Start 08/18/20 at 11:00; Stop 08/17/20 at 12:26; Status DC Vancomycin HCl (Vancomycin Random Level) 1 each 1X ONCE MC ; Start 08/18/20 at 10:00; Stop 08/17/20 at 12:28; Status DC Piperacillin Sod/ Tazobactam Sod 2.25 gm/Sodium Chloride 50 ml @ 100 mls/hr Q8HRS IV Last administered on 08/18/20at 15:03; Start 08/17/20 at 13:00 Doxycycline Hyclate 100 mg/ Dextrose 100 ml @ 50 mls/hr Q12HR IV Last administered on 08/18/20at 09:09; Start 08/17/20 at 13:00 Amino Acids/ Glycerin/ Electrolytes 1,000 ml @ 80 mls/hr [id number] IV Last administered on 08/18/20at 10:41; Start 08/18/20 at 10:00 Epinephrine HCl (EPINEPHrine SYRINGE) 2 mg STK-MED ONCE .ROUTE ; Start 08/17/20 at 12:00; Stop 08/18/20 at 10:13; Status DC Active Scripts Active Lasix (Furosemide) 40 Mg Tablet 1 Tab PO DAILY 30 Days Potassium Chloride (Potassium Chloride) 20 Meq Tablet.er 20 Meq PO DAILY 30 Days Aldactone (Spironolactone) 25 Mg Tablet 25 Mg PO DAILY@1200 30 Days Reported Pravastatin Sodium 40 Mg Tablet 1 Tab PO DAILY Levothyroxine Sodium 75 Mcg Tablet 1 Tab PO DAILY Tramadol Hcl 50 Mg Tablet 50 Mg PO TID Ascorbic Acid 500 Mg Tablet 500 Mg PO DAILY Flomax (Tamsulosin Hcl) 0.4 Mg Cap.er.24h 1 Cap PO DAILY Xarelto (Rivaroxaban) 20 Mg Tablet 20 Mg PO DAILY Prozac (Fluoxetine Hcl) 20 Mg Capsule 1 Cap PO DAILYWBKFT Carvedilol (Carvedilol) 6.25 Mg Tablet 1 Tab PO BID Fish Oil 1,200 mg Softgel ([place]-3S/Dha/Epa/Fish Oil) 1 Each Capsule 1 Each PO DAILY Multiple Vitamins (Multivitamin) 1 Each Tablet 1 Each PO DAILY Finasteride 5 Mg Tablet 1 Tab PO DAILY Children's Aspirin (Aspirin) 81 Mg Tab.chew 81 Mg PO Allergies Allergies: Coded Allergies: No Known Drug Allergies (Unverified , 09/26/16) ROS Review of System Negative for fever, chills, weight loss, hematochezia, melena, and dysuria. Has had dyspnea, chest pain, indigestion. Full 14-point review of systems is negative. Physical Exam Physical Examination General: Well-developed, well-nourished white male in no acute distress HEENT: Normocephalic andatraumatic. Temporal arteriespulsatile and nontender. Neck: Supple without bruit, no meningismus Musculoskeletal: Stability:see neurologic. Gait exam:see neurologic. Tone:see neurologic.Strength:see neurologic. Neurological: Mental Status: orientation, memory, attention span/concentration, language, fund of knowledge: Intubated, off sedation, no response to voice or pain. Triggers ventilator. Cranial Nerves:Pupils equal and reactive to light, roving eye movements. There is no facial asymmetry. Vestibulo-ocular reflex is intact. All other cranial related problems are negative except as mentioned before.Reflexes1+ and symmetric with silent plantar responses. Motor:No withdrawal to pain. Coordination and gait:not testable. Sensory:not testable. Vitals VITALS Vital Signs Date Time Temp Pulse Resp B/P (MAP) Pulse Ox O2 Delivery O2 Flow Rate FiO2 08/18/20 15:00 79 17 94/61 (72) 100 Ventilator 08/18/20 12:00 98.6 98.6 08/17/20 20:01 4.0 Labs Labs Laboratory Tests Test 08/16/20 19:42 08/16/20 20:03 08/16/20 20:30 08/17/20 04:05 Glucose (Fingerstick) 45 mg/dL (70-99) 75 mg/dL (70-99) O2 Saturation 98 % (92-99) Arterial Blood pH 7.21 (7.35-7.45) Arterial Blood pH (Temp corrected) 7.26 Arterial Blood pCO2 at Patient Temp 46 mmHg (35-46) Arterial Blood pCO2 (Temp correct) 39 mmHg Arterial Blood pO2 at Patient Temp 142 mmHg (65-108) Arterial Blood pO2 (Temp corrected) 121 mmHg Arterial Blood HCO3 18 mmol/L (21-28) Arterial Blood Base Excess -10 mmol/L (-3-3) FiO2 100 White Blood Count 21.8 x10^3/uL (4.0-11.0) Red Blood Count 5.03 x10^6/uL (4.30-5.70) Hemoglobin 16.0 g/dL (13.0-17.5) Hematocrit 49.2 % (39.0-53.0) Mean Corpuscular Volume 98 fL (79-100) Mean Corpuscular Hemoglobin 32 pg (25-35) Mean Corpuscular Hemoglobin Concent 33 g/dL (31-37) Red Cell Distribution Width 16.6 % (11.5-14.5) Platelet Count 126 x10^3/uL (140-400) Sodium Level 131 mmol/L (136-145) Potassium Level 5.2 mmol/L (3.5-5.1) Chloride Level 96 mmol/L (98-107) Carbon Dioxide Level 21 mmol/L (21-32) Anion Gap 14 (6-14) Blood Urea Nitrogen 43 mg/dL (8-26) Creatinine 2.1 mg/dL (0.7-1.3) Estimated GFR (Cockcroft-Gault) 30.2 Glucose Level 108 mg/dL (70-99) Calcium Level 8.9 mg/dL (8.5-10.1) Test 08/17/20 07:20 08/17/20 14:45 08/18/20 08:00 08/18/20 10:44 O2 Saturation 98 % (92-99) 99 % (92-99) Arterial Blood pH 7.61 (7.35-7.45) 7.53 (7.35-7.45) Arterial Blood pCO2 at Patient Temp 26 mmHg (35-46) 37 mmHg (35-46) Arterial Blood pO2 at Patient Temp 92 mmHg (65-108) 139 mmHg (65-108) Arterial Blood HCO3 25 mmol/L (21-28) 30 mmol/L (21-28) Arterial Blood Base Excess 5 mmol/L (-3-3) 7 mmol/L (-3-3) FiO2 50 50/vent Urine Collection Type Unknown Urine Color [place] Urine Clarity Clear Urine pH 5.5 (<5.0-8.0) Urine Specific [place] 1.020 (1.000-1.030) Urine Protein 100 mg/dL (NEG-TRACE) Urine Glucose (UA) Negative mg/dL (NEG) Urine Ketones (Stick) Trace mg/dL (NEG) Urine Blood Large (NEG) Urine Nitrite Negative (NEG) Urine Bilirubin Moderate (NEG) Urine Urobilinogen Dipstick 4.0 mg/dL (0.2 mg/dL) Urine Leukocyte Esterase Small (NEG) Urine RBC 11-20 /HPF (0-2) Urine WBC 1-4 /HPF (0-4) Urine Squamous Epithelial Cells Occ /LPF Urine Bacteria Few /HPF (0-FEW) Urine Hyaline Casts Moderate /HPF Urine Granular Casts Few /HPF Urine Red Blood Cell Casts Occasional /HPF Urine Mucus Slight /LPF White Blood Count 15.3 x10^3/uL (4.0-11.0) Red Blood Count 4.67 x10^6/uL (4.30-5.70) Hemoglobin 14.8 g/dL (13.0-17.5) Hematocrit 44.9 % (39.0-53.0) Mean Corpuscular Volume 96 fL (79-100) Mean Corpuscular Hemoglobin 32 pg (25-35) Mean Corpuscular Hemoglobin Concent 33 g/dL (31-37) Red Cell Distribution Width 16.4 % (11.5-14.5) Platelet Count 113 x10^3/uL (140-400) Sodium Level 133 mmol/L (136-145) Potassium Level 4.5 mmol/L (3.5-5.1) Chloride Level 96 mmol/L (98-107) Carbon Dioxide Level 28 mmol/L (21-32) Anion Gap 9 (6-14) Blood Urea Nitrogen 49 mg/dL (8-26) Creatinine 2.2 mg/dL (0.7-1.3) Estimated GFR (Cockcroft-Gault) 28.6 Glucose Level 119 mg/dL (70-99) Calcium Level 8.4 mg/dL (8.5-10.1) Total Bilirubin 11.2 mg/dL (0.2-1.0) Direct Bilirubin 8.5 mg/dL (0.0-0.2) Aspartate Amino Transf (AST/SGOT) 1477 U/L (15-37) Alanine Aminotransferase (ALT/SGPT) 784 U/L (16-63) Alkaline Phosphatase 70 U/L (46-116) Total Protein 5.6 g/dL (6.4-8.2) Albumin 2.0 g/dL (3.4-5.0) Laboratory Tests Test 08/18/20 08:00 08/18/20 10:44 O2 Saturation 99 % (92-99) Arterial Blood pH 7.53 (7.35-7.45) Arterial Blood pCO2 at Patient Temp 37 mmHg (35-46) Arterial Blood pO2 at Patient Temp 139 mmHg (65-108) Arterial Blood HCO3 30 mmol/L (21-28) Arterial Blood Base Excess 7 mmol/L (-3-3) FiO2 50/vent White Blood Count 15.3 x10^3/uL (4.0-11.0) Red Blood Count 4.67 x10^6/uL (4.30-5.70) Hemoglobin 14.8 g/dL (13.0-17.5) Hematocrit 44.9 % (39.0-53.0) Mean Corpuscular Volume 96 fL (79-100) Mean Corpuscular Hemoglobin 32 pg (25-35) Mean Corpuscular Hemoglobin Concent 33 g/dL (31-37) Red Cell Distribution Width 16.4 % (11.5-14.5) Platelet Count 113 x10^3/uL (140-400) Sodium Level 133 mmol/L (136-145) Potassium Level 4.5 mmol/L (3.5-5.1) Chloride Level 96 mmol/L (98-107) Carbon Dioxide Level 28 mmol/L (21-32) Anion Gap 9 (6-14) Blood Urea Nitrogen 49 mg/dL (8-26) Creatinine 2.2 mg/dL (0.7-1.3) Estimated GFR (Cockcroft-Gault) 28.6 Glucose Level 119 mg/dL (70-99) Calcium Level 8.4 mg/dL (8.5-10.1) Total Bilirubin 11.2 mg/dL (0.2-1.0) Direct Bilirubin 8.5 mg/dL (0.0-0.2) Aspartate Amino Transf (AST/SGOT) 1477 U/L (15-37) Alanine Aminotransferase (ALT/SGPT) 784 U/L (16-63) Alkaline Phosphatase 70 U/L (46-116) Total Protein 5.6 g/dL (6.4-8.2) Albumin 2.0 g/dL (3.4-5.0) Assessment/Plan Assessment/Plan Impression: Anoxic encephalopathy Status pulse pulseless electrical activity, coded twice. History of left middle cerebral artery stroke Congestive heart failure, severe cardiomyopathy, respiratory failure, acute kidney injury, leukocytosis probable sepsis, hyperbilirubinemia/transaminitis, possible GI bleed, atrial fib, hyperlipidemia, elevated troponin, hypothyroid, potential occlusion of right distal posterior tibial, dorsalis pedis and peroneal arteries Recommendations: CT head EEG, given the roving eye movements DNR Consider terminal extubation if no better, as soon as tomorrow Discussed with Thank you for letting me help with the patient's care. DAVIDA PRITCHETT MD Aug 18, 2020 15:28
--- NOTE | 2020-08-18 17:14 | PDOC2 ---
CONSULT Date of Consult Date of Consult DATE: 08/18/20 TIME: 17:06 History of Present Illness Reason for Visit: This 85-year-old male who is status post PEA cardiac arrest who is currently intubated in the intensive care unit. I was called by the nursing staff due to concern of distal pulse exam. Patient has known severe ischemic cardiomyopathy with depressed ejection fraction of approximately 15%. He likely has underlying peripheral arterial disease which is known. He is significantly jaundiced and has a total bilirubin greater than 11 and a direct bilirubin of 8.5. The patient also has coffee-ground material from his nasogastric tube. Gastroenterology is involved in his case. Past Medical History Cardiovascular: AFIB, CAD, CHF (EF 15-20%), HTN, Hyperlipidemia Pulmonary: Pneumonia CENTRAL NERVOUS SYSTEM: CVA GI: GERD, GI bleed Heme/Onc: Anemia NOS Hepatobiliary: No pertinent hx Psych: No pertinent hx Musculoskeletal: Osteoarthritis Rheumatologic: No pertinent hx Infectious disease: No pertinent hx Renal/: Benign prostatic enlarg. Endocrine: Hypothyroidism Past Surgical History Past Surgical History: Cholecystectomy, Hernia Repair (Umbilical), Other (Dental extractions, repair left leg fracture, right foot fracture) Family History Family History: Chronic Bronchitis, Heart Disease Social History Quit ALCOHOL: none Drugs: None Lives: with Family Current Problem List Problem List Problems Medical Problems: (1) Chronic a-fib Status: Chronic (2) Hyponatremia Status: Acute Current Medications Current Medications Current Medications Aspirin (Aspirin Chewable) 162 mg 1X ONCE PO Last administered on 08/12/20at 18:53; Start 08/12/20 at 18:15; Stop 08/12/20 at 18:16; Status DC Nitroglycerin (Nitrostat) 0.4 mg PRN Q5MIN PRN SL CHEST PAIN; Start 08/12/20 at 20:00; Stop 08/13/20 at 19:59; Status DC Furosemide (Lasix) 40 mg 1X ONCE IVP Last administered on 08/12/20at 20:34; Start 08/12/20 at 20:00; Stop 08/12/20 at 20:01; Status DC Ascorbic Acid (Vitamin C) 500 mg DAILY PO Last administered on 08/18/20at 09:03; Start 08/13/20 at 09:00 Aspirin (Aspirin Chewable) 81 mg DAILYWBKFT PO Last administered on 08/16/20at 08:49; Start 08/13/20 at 08:00; Stop 08/17/20 at 14:43; Status DC Carvedilol (Coreg) 6.25 mg BIDWMEALS PO Last administered on 08/16/20at 16:24; Start 08/13/20 at 08:00; Stop 08/17/20 at 14:43; Status DC Finasteride (Proscar) 5 mg DAILY PO Last administered on 08/18/20at 09:03; Start 08/13/20 at 09:00 Fluoxetine HCl (PROzac) 20 mg DAILYWBKFT PO Last administered on 08/18/20at 09:03; Start 08/13/20 at 08:00 Levothyroxine Sodium (Synthroid) 75 mcg DAILY06 PO Last administered on 08/13/20at 05:45; Start 08/13/20 at 06:00; Stop 08/13/20 at 08:59; Status DC Tamsulosin HCl (Flomax) 0.4 mg DAILY PO Last administered on 08/18/20at 09:03; Start 08/13/20 at 09:00 Tramadol HCl (Ultram) 50 mg TID PO Last administered on 08/16/20at 14:14; Start 08/13/20 at 09:00 Multivitamins (Thera M Plus) 1 tab DAILY PO Last administered on 08/18/20at 09:03; Start 08/13/20 at 09:00 Fish Oil (Fish Oil) 1,000 mg DAILY PO Last administered on 08/18/20at 09:03; Start 08/13/20 at 09:00 Atorvastatin Calcium (Lipitor) 10 mg QHS PO Last administered on 08/17/20at 20:24; Start 08/13/20 at 21:00 Rivaroxaban (Xarelto) 20 mg DAILY PO Last administered on 08/13/20at 08:44; Start 08/13/20 at 09:00; Stop 08/13/20 at 12:44; Status DC Tramadol HCl (Ultram) 100 mg PRN QHS PRN PO PAIN; Start 08/12/20 at 23:15 Levothyroxine Sodium (Synthroid) 88 mcg DAILY06 PO Last administered on 08/18/20at 05:48; Start 08/14/20 at 06:00 Furosemide (Lasix) 40 mg BID92 IVP Last administered on 08/16/20at 08:50; Start 08/13/20 at 09:00; Stop 08/16/20 at 14:04; Status DC Rivaroxaban (Xarelto) 15 mg DAILYWBKFT PO Last administered on 08/16/20at 08:50; Start 08/14/20 at 08:00; Stop 08/17/20 at 14:43; Status DC Potassium Chloride (Klor-Con) 10 meq TIDWMEALS PO ; Start 08/14/20 at 08:00; Stop 08/14/20 at 08:59; Status DC Potassium Chloride (Klor-Con) 20 meq TIDWMEALS PO Last administered on 08/16/20at 17:32; Start 08/14/20 at 09:00; Stop 08/17/20 at 14:43; Status DC Spironolactone (Aldactone) 25 mg DAILY@1200 PO Last administered on 08/16/20at 14:11; Start 08/14/20 at 12:00; Stop 08/17/20 at 14:43; Status DC Albuterol Sulfate (Ventolin Neb Soln) 2.5 mg PRN TID PRN NEB SHORTNESS OF BREATH Last administered on 08/16/20at 14:21; Start 08/15/20 at 23:30 Alprazolam (Xanax) 0.25 mg PRN Q6HRS PRN PO ANXIETY / AGITATION Last administered on 08/16/20at 14:10; Start 08/16/20 at 14:00 Dextrose (Dextrose 50%-Water Syringe) 25 gm STK-MED ONCE IV ; Start 08/16/20 at 19:44; Stop 08/16/20 at 19:44; Status DC Dextrose (Dextrose 50%-Water Syringe) 25 gm STK-MED ONCE IV ; Start 08/16/20 at 20:05; Stop 08/16/20 at 20:06; Status DC Propofol 100 ml @ As Directed STK-MED ONCE IV ; Start 08/16/20 at 20:28; Stop 08/16/20 at 20:28; Status DC Fentanyl Citrate 30 ml @ 0 mls/hr CONT PRN IV SEE PROTOCOL Last administered on 08/17/20at 19:27; Start 08/16/20 at 20:30 Propofol 100 ml @ 0 mls/hr CONT PRN IV PER PROTOCOL Last administered on 08/16/20at 20:34; Start 08/16/20 at 20:30 Norepinephrine Bitartrate 8 mg/ Dextrose 258 ml @ 16.177 mls/ hr CONT PRN IV P ER PROTOCOL Last administered on 08/18/20at 15:04; Start 08/16/20 at 21:00 Midazolam HCl 100 ml @ 1 mls/hr CONT PRN IV SEE I/O RECORD Last administered on 08/17/20at 12:32; Start 08/16/20 at 21:00 Info (Anti-Coagulation Monitoring By Pharmacy) 1 each PRN DAILY PRN MC SEE COMMENTS Last administered on 08/17/20at 12:17; Start 08/17/20 at 08:15 Dextrose (Dextrose 50%-Water Syringe) 50 gm STK-MED ONCE IV ; Start 08/16/20 at 20:00; Stop 08/17/20 at 08:50; Status DC Vancomycin HCl 1 gm/Sodium Chloride 250 ml @ 250 mls/hr Q24H IV ; Start 08/17/20 at 09:00; Status UNV Cefepime HCl (Maxipime) 2 gm Q8HRS IVP Last administered on 08/17/20at 11:23; Start 08/17/20 at 10:00; Stop 08/17/20 at 11:49; Status DC Pantoprazole Sodium (PROTONIX VIAL for IV PUSH) 40 mg DAILYAC IVP Last administered on 08/18/20at 09:03; Start 08/17/20 at 09:30 Vancomycin HCl (Vanco Per Pharmacy) 1 each PRN DAILY PRN MC SEE COMMENTS Last administered on 08/17/20at 12:04; Start 08/17/20 at 09:30; Stop 08/17/20 at 12:26; Status DC Vancomycin HCl 1.75 gm/Sodium Chloride 500 ml @ 250 mls/hr 1X ONCE IV Last administered on 08/17/20at 09:39; Start 08/17/20 at 10:00; Stop 08/17/20 at 11:59; Status DC Cefepime HCl (Maxipime) 2 gm Q24H IVP ; Start 08/18/20 at 11:00; Stop 08/17/20 at 12:26; Status DC Vancomycin HCl (Vancomycin Random Level) 1 each 1X ONCE MC ; Start 08/18/20 at 10:00; Stop 08/17/20 at 12:28; Status DC Piperacillin Sod/ Tazobactam Sod 2.25 gm/Sodium Chloride 50 ml @ 100 mls/hr Q8HRS IV Last administered on 08/18/20at 15:03; Start 08/17/20 at 13:00 Doxycycline Hyclate 100 mg/ Dextrose 100 ml @ 50 mls/hr Q12HR IV Last administered on 08/18/20at 09:09; Start 08/17/20 at 13:00 Amino Acids/ Glycerin/ Electrolytes 1,000 ml @ 80 mls/hr [id number] IV Last administered on 08/18/20at 10:41; Start 08/18/20 at 10:00 Epinephrine HCl (EPINEPHrine SYRINGE) 2 mg STK-MED ONCE .ROUTE ; Start 08/17/20 at 12:00; Stop 08/18/20 at 10:13; Status DC Active Scripts Active Lasix (Furosemide) 40 Mg Tablet 1 Tab PO DAILY 30 Days Potassium Chloride (Potassium Chloride) 20 Meq Tablet.er 20 Meq PO DAILY 30 Days Aldactone (Spironolactone) 25 Mg Tablet 25 Mg PO DAILY@1200 30 Days Reported Pravastatin Sodium 40 Mg Tablet 1 Tab PO DAILY Levothyroxine Sodium 75 Mcg Tablet 1 Tab PO DAILY Tramadol Hcl 50 Mg Tablet 50 Mg PO TID Ascorbic Acid 500 Mg Tablet 500 Mg PO DAILY Flomax (Tamsulosin Hcl) 0.4 Mg Cap.er.24h 1 Cap PO DAILY Xarelto (Rivaroxaban) 20 Mg Tablet 20 Mg PO DAILY Prozac (Fluoxetine Hcl) 20 Mg Capsule 1 Cap PO DAILYWBKFT Carvedilol (Carvedilol) 6.25 Mg Tablet 1 Tab PO BID Fish Oil 1,200 mg Softgel ([place]-3S/Dha/Epa/Fish Oil) 1 Each Capsule 1 Each PO DAILY Multiple Vitamins (Multivitamin) 1 Each Tablet 1 Each PO DAILY Finasteride 5 Mg Tablet 1 Tab PO DAILY Children's Aspirin (Aspirin) 81 Mg Tab.chew 81 Mg PO Allergies Allergies: Coded Allergies: No Known Drug Allergies (Unverified , 09/26/16) Physical Exam General: Other (Intubated and sedated on a ventilator) HEENT: Mucous membr. moist/pink, Other (Sclera are jaundiced) Lungs: Other (On mechanical ventilation, distant breath sounds bilaterally) Heart: Regular rate, Normal S1, Normal S2 Abdomen: Soft, No tenderness Extremities: Other (Bilateral lower extremity 2+ pitting edema, intact femoral pulses bilaterally, dorsalis pedis and posterior tibial Doppler signals intact on the left, posterior tibial biphasic Doppler signal intact on the right, anterior tibial Doppler signal intact on the right which is biphasic) Skin: Other (Small excoriations on his toes bilaterally, no gangrenous changes, mild cyanosis of his great toe on the right) Neuro: Other (Unable to fully assess) Psych/Mental Status: Other (Unable to assess currently) MUSCULOSKELETAL: Other (Old fracture of the left lower extremity with scarring) Vitals VITALS Vital Signs Date Time Temp Pulse Resp B/P (MAP) Pulse Ox O2 Delivery O2 Flow Rate FiO2 08/18/20 16:23 100 Ventilator 08/18/20 16:00 98.4 90 17 82/57 (65) 98.4 08/17/20 20:01 4.0 Labs Labs Laboratory Tests Test 08/16/20 19:42 08/16/20 20:03 08/16/20 20:30 08/17/20 04:05 Glucose (Fingerstick) 45 mg/dL (70-99) 75 mg/dL (70-99) O2 Saturation 98 % (92-99) Arterial Blood pH 7.21 (7.35-7.45) Arterial Blood pH (Temp corrected) 7.26 Arterial Blood pCO2 at Patient Temp 46 mmHg (35-46) Arterial Blood pCO2 (Temp correct) 39 mmHg Arterial Blood pO2 at Patient Temp 142 mmHg (65-108) Arterial Blood pO2 (Temp corrected) 121 mmHg Arterial Blood HCO3 18 mmol/L (21-28) Arterial Blood Base Excess -10 mmol/L (-3-3) FiO2 100 White Blood Count 21.8 x10^3/uL (4.0-11.0) Red Blood Count 5.03 x10^6/uL (4.30-5.70) Hemoglobin 16.0 g/dL (13.0-17.5) Hematocrit 49.2 % (39.0-53.0) Mean Corpuscular Volume 98 fL (79-100) Mean Corpuscular Hemoglobin 32 pg (25-35) Mean Corpuscular Hemoglobin Concent 33 g/dL (31-37) Red Cell Distribution Width 16.6 % (11.5-14.5) Platelet Count 126 x10^3/uL (140-400) Sodium Level 131 mmol/L (136-145) Potassium Level 5.2 mmol/L (3.5-5.1) Chloride Level 96 mmol/L (98-107) Carbon Dioxide Level 21 mmol/L (21-32) Anion Gap 14 (6-14) Blood Urea Nitrogen 43 mg/dL (8-26) Creatinine 2.1 mg/dL (0.7-1.3) Estimated GFR (Cockcroft-Gault) 30.2 Glucose Level 108 mg/dL (70-99) Calcium Level 8.9 mg/dL (8.5-10.1) Test 08/17/20 07:20 08/17/20 14:45 08/18/20 08:00 08/18/20 10:44 O2 Saturation 98 % (92-99) 99 % (92-99) Arterial Blood pH 7.61 (7.35-7.45) 7.53 (7.35-7.45) Arterial Blood pCO2 at Patient Temp 26 mmHg (35-46) 37 mmHg (35-46) Arterial Blood pO2 at Patient Temp 92 mmHg (65-108) 139 mmHg (65-108) Arterial Blood HCO3 25 mmol/L (21-28) 30 mmol/L (21-28) Arterial Blood Base Excess 5 mmol/L (-3-3) 7 mmol/L (-3-3) FiO2 50 50/vent Urine Collection Type Unknown Urine Color [place] Urine Clarity Clear Urine pH 5.5 (<5.0-8.0) Urine Specific [place] 1.020 (1.000-1.030) Urine Protein 100 mg/dL (NEG-TRACE) Urine Glucose (UA) Negative mg/dL (NEG) Urine Ketones (Stick) Trace mg/dL (NEG) Urine Blood Large (NEG) Urine Nitrite Negative (NEG) Urine Bilirubin Moderate (NEG) Urine Urobilinogen Dipstick 4.0 mg/dL (0.2 mg/dL) Urine Leukocyte Esterase Small (NEG) Urine RBC 11-20 /HPF (0-2) Urine WBC 1-4 /HPF (0-4) Urine Squamous Epithelial Cells Occ /LPF Urine Bacteria Few /HPF (0-FEW) Urine Hyaline Casts Moderate /HPF Urine Granular Casts Few /HPF Urine Red Blood Cell Casts Occasional /HPF Urine Mucus Slight /LPF White Blood Count 15.3 x10^3/uL (4.0-11.0) Red Blood Count 4.67 x10^6/uL (4.30-5.70) Hemoglobin 14.8 g/dL (13.0-17.5) Hematocrit 44.9 % (39.0-53.0) Mean Corpuscular Volume 96 fL (79-100) Mean Corpuscular Hemoglobin 32 pg (25-35) Mean Corpuscular Hemoglobin Concent 33 g/dL (31-37) Red Cell Distribution Width 16.4 % (11.5-14.5) Platelet Count 113 x10^3/uL (140-400) Sodium Level 133 mmol/L (136-145) Potassium Level 4.5 mmol/L (3.5-5.1) Chloride Level 96 mmol/L (98-107) Carbon Dioxide Level 28 mmol/L (21-32) Anion Gap 9 (6-14) Blood Urea Nitrogen 49 mg/dL (8-26) Creatinine 2.2 mg/dL (0.7-1.3) Estimated GFR (Cockcroft-Gault) 28.6 Glucose Level 119 mg/dL (70-99) Calcium Level 8.4 mg/dL (8.5-10.1) Total Bilirubin 11.2 mg/dL (0.2-1.0) Direct Bilirubin 8.5 mg/dL (0.0-0.2) Aspartate Amino Transf (AST/SGOT) 1477 U/L (15-37) Alanine Aminotransferase (ALT/SGPT) 784 U/L (16-63) Alkaline Phosphatase 70 U/L (46-116) Total Protein 5.6 g/dL (6.4-8.2) Albumin 2.0 g/dL (3.4-5.0) Laboratory Tests Test 08/18/20 08:00 08/18/20 10:44 O2 Saturation 99 % (92-99) Arterial Blood pH 7.53 (7.35-7.45) Arterial Blood pCO2 at Patient Temp 37 mmHg (35-46) Arterial Blood pO2 at Patient Temp 139 mmHg (65-108) Arterial Blood HCO3 30 mmol/L (21-28) Arterial Blood Base Excess 7 mmol/L (-3-3) FiO2 50/vent White Blood Count 15.3 x10^3/uL (4.0-11.0) Red Blood Count 4.67 x10^6/uL (4.30-5.70) Hemoglobin 14.8 g/dL (13.0-17.5) Hematocrit 44.9 % (39.0-53.0) Mean Corpuscular Volume 96 fL (79-100) Mean Corpuscular Hemoglobin 32 pg (25-35) Mean Corpuscular Hemoglobin Concent 33 g/dL (31-37) Red Cell Distribution Width 16.4 % (11.5-14.5) Platelet Count 113 x10^3/uL (140-400) Sodium Level 133 mmol/L (136-145) Potassium Level 4.5 mmol/L (3.5-5.1) Chloride Level 96 mmol/L (98-107) Carbon Dioxide Level 28 mmol/L (21-32) Anion Gap 9 (6-14) Blood Urea Nitrogen 49 mg/dL (8-26) Creatinine 2.2 mg/dL (0.7-1.3) Estimated GFR (Cockcroft-Gault) 28.6 Glucose Level 119 mg/dL (70-99) Calcium Level 8.4 mg/dL (8.5-10.1) Total Bilirubin 11.2 mg/dL (0.2-1.0) Direct Bilirubin 8.5 mg/dL (0.0-0.2) Aspartate Amino Transf (AST/SGOT) 1477 U/L (15-37) Alanine Aminotransferase (ALT/SGPT) 784 U/L (16-63) Alkaline Phosphatase 70 U/L (46-116) Total Protein 5.6 g/dL (6.4-8.2) Albumin 2.0 g/dL (3.4-5.0) Images Images Arterial duplex was reviewed. The findings do not match the physical exam findings Assessment/Plan Assessment/Plan Chronic peripheral arterial disease--the patient certainly has chronic peripheral arterial disease bilaterally. He has a known ischemic cardiomyopathy with a depressed ejection fraction of approximately 15%. He has intact Doppler signals in his feet bilaterally. I disagree with the arterial duplex findings reported by the radiologist. I would recommend therapeutic anticoagulation when it is safe to do so. I will defer work-up of his GI bleed and his hyperbilirubinemia to the gastroenterology team. Again once they deem it safe, I would recommend therapeutic anticoagulation given his high risk from his depressed ejection fraction. Currently there is no surgical therapy required or indicated. I would allow the patient to continue to recover from his code event. The plan was discussed with the nursing staff at the bedside. Once safe to do so, I would also recommend 81 mg aspirin and statin therapy. Statin therapy is currently contraindicated given his liver dysfunction. Deena Mensah DO, DEENA PORTER DO Aug 18, 2020 17:14
[2020-08-18] MEDS: ATORVASTATIN CALCIUM 10 MG TABLET. PO SCH (21:18)
[2020-08-19] VITALS (25 sets, daily range): BP systolic 80–136; BP diastolic 40–81
[2020-08-19] MEDS: LEVOTHYROXINE 88 MCG TABLET PO SCH (05:44)
[2020-08-19] MEDS: PIPERACILLIN/TAZOBACTAM 2.25 GM in IV NORMAL SALINE 50ML 50 ML IV SCH ×2 (05:44→15:50)
[2020-08-19 07:35] LABS: BASO % 0 % (0-3); EOS % 0 % (0-3); HEMATOCRIT 39.9 % (39.0-53.0); HEMOGLOBIN 13.2 g/dL (13.0-17.5); LYMPH # 0.6 x10^3/uL (1.0-4.8); LYMPH % 5 % (24-48); MEAN CORPUSCULAR HEMOGLOBIN 32 pg (25-35); MEAN CORPUSCULAR HGB CONC 33 g/dL (31-37); MEAN CORPUSCULAR VOLUME 97 fL (79-100); MONO # 1.2 x10^3/uL (0.0-1.1); MONO % 10 % (0-9); NEUT # 9.9 x10^3/uL (1.8-7.7); NEUT % 85 % (31-73); PLATELET COUNT 90 x10^3/uL (140-400); RED BLOOD COUNT 4.11 x10^6/uL (4.30-5.70); RED CELL DISTRIBUTION WIDTH 16.5 % (11.5-14.5); WHITE BLOOD COUNT 11.7 x10^3/uL (4.0-11.0)
[2020-08-19] MEDS: FLUoxetine HCL 20 MG CAPSULE PO SCH (07:54)
[2020-08-19] MEDS: PANTOPRAZOLE IV PUSH 40 MG VIAL. IVP SCH (07:54)
[2020-08-19] MEDS: FINASTERIDE 5 MG TABLET. PO SCH (07:54)
[2020-08-19] MEDS: OMEGA-3 FATTY ACIDS/FISH OIL 1,000 MG CAPSULE. PO SCH (07:54)
[2020-08-19] MEDS: traMADol 50 MG TABLET PO SCH ×2 (07:55→15:59)
[2020-08-19] MEDS: ASCORBIC ACID 500 MG TABLET PO SCH (07:56)
[2020-08-19 07:57] LABS: ALBUMIN 1.5 g/dL (3.4-5.0); ALBUMIN/GLOBULIN RATIO 0.4 (1.0-1.7); CALCIUM 8.1 mg/dL (8.5-10.1); CREATININE 1.7 mg/dL (0.7-1.3); GFR 38.5; POTASSIUM 3.9 mmol/L (3.5-5.1); TOTAL BILIRUBIN 10.5 mg/dL (0.2-1.0); TOTAL PROTEIN 5.1 g/dL (6.4-8.2)
--- NOTE | 2020-08-19 08:06 | RAD ---
XR CHEST 1V 08/19/2020 4:35 AM INDICATION: Respiratory failure COMPARISON: 08/16/2020 TECHNIQUE: Portable frontal view of the chest is provided. FINDINGS: The cardiomediastinal silhouette is similar in appearance. Endotracheal tube and nasogastric tube are in similar position. Small bilateral pleural effusions with adjacent basilar atelectasis versus infiltrates with improved aeration the lungs compared to prior examination. Coarse interstitial changes with perihilar distribu tion persists. No pneumothorax. No suspicious osseous abnormality. IMPRESSION: There is improving aeration of the lungs with persistent coarse mild perihilar interstitial airspace disease and small bilateral pleural effusions with adjacent compressive atelectasis versus infiltrate s. Electronically signed by: Kesha Mcbride MD (08/19/2020 8:03 AM) [id number]
--- NOTE | 2020-08-19 08:28 | PDOC ---
Infectious Disease Note Subjective: Subjective Patient intubated,un responsive Off sedation On pressors Vital Signs: Vital Signs Vital Signs Date Time Temp Pulse Resp B/P (MAP) Pulse Ox O2 Delivery O2 Flow Rate FiO2 08/19/20 07:55 14 99 4.0 08/19/20 06:19 73 108/65 (79) Ventilator 08/19/20 04:00 97.9 97.9 Physical Exam: PHYSICAL EXAM GENERAL: Intubated, unresponsive HEENT: Normocephalic, atraumatic. ETT and OG tube in place. NECK: Supple. LUNGS: Coarse breath sounds. HEART: S1, S2 irregular. ABDOMEN: Soft. Bowel sounds present, mildly distended. EXTREMITIES: Purplish blue toes. Edema present. Cold clammy right lower extremity GENITOURINARY: Pastor in place. Dark colored urine. DERMATOLOGIC: No generalized rash, abrasions present over the anterior chest wall and anterior lower extremities. NEUROLOGIC: Unresponsive PSYCHIATRIC: Unable to assess. Medications: Inpatient Meds: Current Medications Medications (Trade) Dose Ordered Sig/Nazia Start Time Stop Time Status Last Admin Dose Admin Albuterol Sulfate (Ventolin Neb Soln) 2.5 mg PRN TID PRN 08/15/20 23:30 08/16/20 14:21 2.5 MG Alprazolam (Xanax) 0.25 mg PRN Q6HRS PRN 08/16/20 14:00 08/16/20 14:10 0.25 MG Amino Acids/ Glycerin/ Electrolytes 1,000 ml @ 80 mls/hr [id number] 08/18/20 10:00 08/18/20 22:55 80 MLS/HR Ascorbic Acid (Vitamin C) 500 mg DAILY 08/13/20 09:00 08/19/20 07:56 500 MG Aspirin (Aspirin Chewable) 81 mg DAILYWBKFT 08/13/20 08:00 08/17/20 14:43 DC 08/16/20 08:49 81 MG Atorvastatin Calcium (Lipitor) 10 mg QHS 08/13/20 21:00 08/18/20 21:18 10 MG Carvedilol (Coreg) 6.25 mg BIDWMEALS 08/13/20 08:00 08/17/20 14:43 DC 08/16/20 16:24 6.25 MG Cefepime HCl (Maxipime) 2 gm Q24H 08/18/20 11:00 08/17/20 12:26 DC Dextrose (Dextrose 50%-Water Syringe) 50 gm STK-MED ONCE 08/16/20 20:00 08/17/20 08:50 DC Doxycycline Hyclate 100 mg/ Dextrose 100 ml @ 50 mls/hr Q12HR 08/17/20 13:00 08/18/20 21:18 50 MLS/HR Epinephrine HCl (EPINEPHrine SYRINGE) 2 mg STK-MED ONCE 08/17/20 12:00 08/18/20 10:13 DC Fentanyl Citrate 30 ml @ 0 mls/hr CONT PRN 08/16/20 20:30 08/17/20 19:27 1.25 MLS/HR Finasteride (Proscar) 5 mg DAILY 08/13/20 09:00 08/19/20 07:54 5 MG Fish Oil (Fish Oil) 1,000 mg DAILY 08/13/20 09:00 08/19/20 07:54 1,000 MG Fluoxetine HCl (PROzac) 20 mg DAILYWBKFT 08/13/20 08:00 08/19/20 07:54 20 MG Furosemide (Lasix) 40 mg BID92 08/13/20 09:00 08/16/20 14:04 DC 08/16/20 08:50 40 MG Info (Anti-Coagulation Monitoring By Pharmacy) 1 each PRN DAILY PRN 08/17/20 08:15 08/17/20 12:17 1 EACH Levothyroxine Sodium (Synthroid) 88 mcg DAILY06 08/14/20 06:00 08/19/20 05:44 88 MCG Midazolam HCl 100 ml @ 1 mls/hr CONT PRN 08/16/20 21:00 08/17/20 12:32 5 MLS/HR Multivitamins (Thera M Plus) 1 tab DAILY 08/13/20 09:00 08/18/20 09:03 1 TAB Nitroglycerin (Nitrostat) 0.4 mg PRN Q5MIN PRN 08/12/20 20:00 08/13/20 19:59 DC Norepinephrine Bitartrate 8 mg/ Dextrose 258 ml @ 16.177 mls/ hr CONT PRN 08/16/20 21:00 08/18/20 21:19 32.353 MLS/HR Pantoprazole Sodium (PROTONIX VIAL for IV PUSH) 40 mg DAILYAC 08/17/20 09:30 08/19/20 07:54 40 MG Piperacillin Sod/ Tazobactam Sod 2.25 gm/Sodium Chloride 50 ml @ 100 mls/hr Q8HRS 08/17/20 13:00 08/19/20 05:44 100 MLS/HR Potassium Chloride (Klor-Con) 20 meq TIDWMEALS 08/14/20 09:00 08/17/20 14:43 DC 08/16/20 17:32 20 MEQ Propofol 100 ml @ 0 mls/hr CONT PRN 08/16/20 20:30 08/16/20 20:34 5 MLS/HR Rivaroxaban (Xarelto) 15 mg DAILYWBKFT 08/14/20 08:00 08/17/20 14:43 DC 08/16/20 08:50 15 MG Spironolactone (Aldactone) 25 mg DAILY@1200 08/14/20 12:00 08/17/20 14:43 DC 08/16/20 14:11 25 MG Tamsulosin HCl (Flomax) 0.4 mg DAILY 08/13/20 09:00 08/18/20 09:03 0.4 MG Tramadol HCl (Ultram) 100 mg PRN QHS PRN 08/12/20 23:15 Vancomycin HCl (Vanco Per Pharmacy) 1 each PRN DAILY PRN 08/17/20 09:30 08/17/20 12:26 DC 08/17/20 12:04 1 EACH Vancomycin HCl (Vancomycin Random Level) 1 each 1X ONCE 08/18/20 10:00 08/17/20 12:28 DC Vancomycin HCl 1.75 gm/Sodium Chloride 500 ml @ 250 mls/hr 1X ONCE 08/17/20 10:00 08/17/20 11:59 DC 08/17/20 09:39 250 MLS/HR Vancomycin HCl 1 gm/Sodium Chloride 250 ml @ 250 mls/hr Q24H 08/17/20 09:00 UNV Labs: Lab Laboratory Tests Test 08/18/20 10:44 08/19/20 07:05 White Blood Count 15.3 x10^3/uL (4.0-11.0) 11.7 x10^3/uL (4.0-11.0) Red Blood Count 4.67 x10^6/uL (4.30-5.70) 4.11 x10^6/uL (4.30-5.70) Hemoglobin 14.8 g/dL (13.0-17.5) 13.2 g/dL (13.0-17.5) Hematocrit 44.9 % (39.0-53.0) 39.9 % (39.0-53.0) Mean Corpuscular Volume 96 fL (79-100) 97 fL (79-100) Mean Corpuscular Hemoglobin 32 pg (25-35) 32 pg (25-35) Mean Corpuscular Hemoglobin Concent 33 g/dL (31-37) 33 g/dL (31-37) Red Cell Distribution Width 16.4 % (11.5-14.5) 16.5 % (11.5-14.5) Platelet Count 113 x10^3/uL (140-400) 90 x10^3/uL (140-400) Sodium Level 133 mmol/L (136-145) 130 mmol/L (136-145) Potassium Level 4.5 mmol/L (3.5-5.1) 3.9 mmol/L (3.5-5.1) Chloride Level 96 mmol/L (98-107) 94 mmol/L (98-107) Carbon Dioxide Level 28 mmol/L (21-32) 31 mmol/L (21-32) Anion Gap 9 (6-14) 5 (6-14) Blood Urea Nitrogen 49 mg/dL (8-26) 45 mg/dL (8-26) Creatinine 2.2 mg/dL (0.7-1.3) 1.7 mg/dL (0.7-1.3) Estimated GFR (Cockcroft-Gault) 28.6 38.5 Glucose Level 119 mg/dL (70-99) 128 mg/dL (70-99) Calcium Level 8.4 mg/dL (8.5-10.1) 8.1 mg/dL (8.5-10.1) Total Bilirubin 11.2 mg/dL (0.2-1.0) 10.5 mg/dL (0.2-1.0) Direct Bilirubin 8.5 mg/dL (0.0-0.2) Aspartate Amino Transf (AST/SGOT) 1477 U/L (15-37) 792 U/L (15-37) Alanine Aminotransferase (ALT/SGPT) 784 U/L (16-63) 611 U/L (16-63) Alkaline Phosphatase 70 U/L (46-116) 58 U/L (46-116) Total Protein 5.6 g/dL (6.4-8.2) 5.1 g/dL (6.4-8.2) Albumin 2.0 g/dL (3.4-5.0) 1.5 g/dL (3.4-5.0) Neutrophils (%) (Auto) 85 % (31-73) Lymphocytes (%) (Auto) 5 % (24-48) Monocytes (%) (Auto) 10 % (0-9) Eosinophils (%) (Auto) 0 % (0-3) Basophils (%) (Auto) 0 % (0-3) Neutrophils # (Auto) 9.9 x10^3/uL (1.8-7.7) Lymphocytes # (Auto) 0.6 x10^3/uL (1.0-4.8) Monocytes # (Auto) 1.2 x10^3/uL (0.0-1.1) Eosinophils # (Auto) 0.0 x10^3/uL (0.0-0.7) Basophils # (Auto) 0.0 x10^3/uL (0.0-0.2) BUN/Creatinine Ratio 26 (6-20) Albumin/Globulin Ratio 0.4 (1.0-1.7) Objective: Assessment: 1. Status post cardiac arrest, PEA. 2. Acute on chronic hypoxic respiratory failure. 3. Acute on chronic congestive heart failure. 4. Leukocytosis, likely reactive, but could have a component of aspiration. 5. Encephalopathy likely anoxic 6. Acute kidney injury on chronic kidney disease. 7. Chronic atrial fibrillation. 8. Cardiomyopathy. 9. History of cerebrovascular accident with hemiparesis. 10. Hyperbilirubinemia. 11. History of noncompliance. 12. PAD Plan: Plan of Care Undergoing EEG Continue Zosyn. Follow up labs and cultures. Continue supportive care. Critically ill. CT head pending Vascular input noted Overall prognosis is poor. Discussed with nursing staff. YAHAIRA GARY MD Aug 19, 2020 08:28
[2020-08-19 08:36] LABS: BASE EXCESS ABG 6 mmol/L (-3-3); HCO3 ABG 29 mmol/L (21-28); PCO2 ABG 35 mmHg (35-46); PO2 ABG 155 mmHg (65-108); SAT O2 ABG 99 % (92-99)
[2020-08-19] MEDS: TAMSULOSIN 0.4 MG CAP.ER.24H. PO SCH (09:00)
[2020-08-19 09:08] LABS: FIO2 ABG 40%
--- NOTE | 2020-08-19 09:11 | PDOC ---
Provider Note Date of Service: DATE: 08/19/20 TIME: 09:09 Provider Note no rx to sternal rub, pupis narrow, less roving eye now- vss, bp low- labs shows better LFT, hb stable, wbc lower- likely shock liver present- state of brain function unclear but ominous, ct pending Justifications for Admission Other Justification VERENICE BLOOD MD Aug 19, 2020 09:11
--- NOTE | 2020-08-19 10:02 | PDOC ---
Date of Service: DATE: 08/19/20 TIME: 09:54 Objective: Objective: No GI concerns per nurse. Reviewed vascular note - Chronic peripheral arterial disease--the patient certainly has chronic peripheral arterial disease bilaterally. He has a known ischemic cardiomyopathy with a depressed ejection fraction of approximately 15%. He has intact Doppler signals in his feet bilaterally. I disagree with the arterial duplex findings reported by the radiologist. I would recommend therapeutic anticoagulation when it is safe to do so. I will defer work-up of his GI bleed and his hyperbilirubinemia to the gastroenterology team. Again once they deem it safe, I would recommend therapeutic anticoagulation given his high risk from his depressed ejection fraction. Currently there is no surgical therapy required or indicated. I would allow the patient to continue to recover from his code event. The plan was discussed with the nursing staff at the bedside. Once safe to do so, I would also recommend 81 mg aspirin and statin therapy. Statin therapy is currently contraindicated given his liver dysfunction. To have EEG, head CT. D/w Dr. Hare. Vital Signs: Vital Signs Date Time Temp Pulse Resp B/P (MAP) Pulse Ox O2 Delivery O2 Flow Rate FiO2 08/19/20 08:19 100 Ventilator 08/19/20 07:55 14 4.0 08/19/20 06:19 73 108/65 (79) 08/19/20 04:00 97.9 97.9 Labs: Laboratory Tests Test 08/18/20 10:44 08/19/20 07:05 08/19/20 08:30 White Blood Count 15.3 x10^3/uL 11.7 x10^3/uL Red Blood Count 4.67 x10^6/uL 4.11 x10^6/uL Hemoglobin 14.8 g/dL 13.2 g/dL Hematocrit 44.9 % 39.9 % Mean Corpuscular Volume 96 fL 97 fL Mean Corpuscular Hemoglobin 32 pg 32 pg Mean Corpuscular Hemoglobin Concent 33 g/dL 33 g/dL Red Cell Distribution Width 16.4 % 16.5 % Platelet Count 113 x10^3/uL 90 x10^3/uL Sodium Level 133 mmol/L 130 mmol/L Potassium Level 4.5 mmol/L 3.9 mmol/L Chloride Level 96 mmol/L 94 mmol/L Carbon Dioxide Level 28 mmol/L 31 mmol/L Anion Gap 9 5 Blood Urea Nitrogen 49 mg/dL 45 mg/dL Creatinine 2.2 mg/dL 1.7 mg/dL Estimated GFR (Cockcroft-Gault) 28.6 38.5 Glucose Level 119 mg/dL 128 mg/dL Calcium Level 8.4 mg/dL 8.1 mg/dL Total Bilirubin 11.2 mg/dL 10.5 mg/dL Direct Bilirubin 8.5 mg/dL Aspartate Amino Transf (AST/SGOT) 1477 U/L 792 U/L Alanine Aminotransferase (ALT/SGPT) 784 U/L 611 U/L Alkaline Phosphatase 70 U/L 58 U/L Total Protein 5.6 g/dL 5.1 g/dL Albumin 2.0 g/dL 1.5 g/dL Neutrophils (%) (Auto) 85 % Lymphocytes (%) (Auto) 5 % Monocytes (%) (Auto) 10 % Eosinophils (%) (Auto) 0 % Basophils (%) (Auto) 0 % Neutrophils # (Auto) 9.9 x10^3/uL Lymphocytes # (Auto) 0.6 x10^3/uL Monocytes # (Auto) 1.2 x10^3/uL Eosinophils # (Auto) 0.0 x10^3/uL Basophils # (Auto) 0.0 x10^3/uL BUN/Creatinine Ratio 26 Albumin/Globulin Ratio 0.4 O2 Saturation 99 % Arterial Blood pH 7.54 Arterial Blood pCO2 at Patient Temp 35 mmHg Arterial Blood pO2 at Patient Temp 155 mmHg Arterial Blood HCO3 29 mmol/L Arterial Blood Base Excess 6 mmol/L FiO2 40% Imaging: LE Duplex 08/18 IMPRESSION: 1. Right distal posterior tibial, dorsalis pedis and peroneal arteries not identified and potentially occluded. CT angiogram can further assess as clinically warranted. 2. Mild to moderate atheromatous plaque. CXR 08/19 IMPRESSION: There is improving aeration of the lungs with persistent coarse mild perihilar interstitial airspace disease and small bilateral pleural effusions with adjacent compressive atelectasis versus infiltrates. PE: GEN: intubated LUNGS: vent/clear HEART: RRR ABD: soft, quiet, OG output more brownish NEURO/PSYCH: unresponsive A/P: S/p arrest, resp failure, anoxic encephalopathy, PAD Coffee-ground emesis (in OG tube) - Hgb remains normal Elevated LFTs - shock liver - better H/o KHUSHI - SB source suspected in past - scopes UTD H/o cardiomyopathy, A Fib, CAD, CVA - was on Xarelto and ASA -- Neurology following - imaging pending. Hgb stable/normal. Continue PPI. Will review vascular recs (ASA 81mg) w/ Dr. Cardenas. Justicifation of Admission Dx: Justifications for Admission: Justification of Admission Dx: Yes LONG CASTANEDA Aug 19, 2020 10:02 SÁNCHEZ CARDENAS MD Aug 19, 2020 14:08
--- NOTE | 2020-08-19 10:14 | PDOC ---
PULMONARY PROGRESS NOTES DATE: 08/19/20 TIME: 10:08 Subjective Remains on vent 40% bloody gastric contents , improving on levophed gtt Sedation has been off since 0715 on 08/18/20 , no response Vitals Vital Signs Date Time Temp Pulse Resp B/P (MAP) Pulse Ox O2 Delivery O2 Flow Rate FiO2 08/19/20 08:19 100 Ventilator 08/19/20 07:55 14 4.0 08/19/20 06:19 73 108/65 (79) 08/19/20 04:00 97.9 97.9 Comments intubated Lungs: Crackles Cardiovascular: S1, S2 Abdomen: Soft, Non-tender Extremities: Other Skin: Other (RLE cyansosis, cold and pulseless ) Labs Laboratory Tests Test 08/17/20 12:46 08/17/20 14:45 08/18/20 08:00 08/18/20 10:44 Glucose (Fingerstick) 87 mg/dL (70-99) Urine Collection Type Unknown Urine Color [place] Urine Clarity Clear Urine pH 5.5 (<5.0-8.0) Urine Specific [place] 1.020 (1.000-1.030) Urine Protein 100 mg/dL (NEG-TRACE) Urine Glucose (UA) Negative mg/dL (NEG) Urine Ketones (Stick) Trace mg/dL (NEG) Urine Blood Large (NEG) Urine Nitrite Negative (NEG) Urine Bilirubin Moderate (NEG) Urine Urobilinogen Dipstick 4.0 mg/dL (0.2 mg/dL) Urine Leukocyte Esterase Small (NEG) Urine RBC 11-20 /HPF (0-2) Urine WBC 1-4 /HPF (0-4) Urine Squamous Epithelial Cells Occ /LPF Urine Bacteria Few /HPF (0-FEW) Urine Hyaline Casts Moderate /HPF Urine Granular Casts Few /HPF Urine Red Blood Cell Casts Occasional /HPF Urine Mucus Slight /LPF O2 Saturation 99 % (92-99) Arterial Blood pH 7.53 (7.35-7.45) Arterial Blood pCO2 at Patient Temp 37 mmHg (35-46) Arterial Blood pO2 at Patient Temp 139 mmHg (65-108) Arterial Blood HCO3 30 mmol/L (21-28) Arterial Blood Base Excess 7 mmol/L (-3-3) FiO2 50/vent White Blood Count 15.3 x10^3/uL (4.0-11.0) Red Blood Count 4.67 x10^6/uL (4.30-5.70) Hemoglobin 14.8 g/dL (13.0-17.5) Hematocrit 44.9 % (39.0-53.0) Mean Corpuscular Volume 96 fL (79-100) Mean Corpuscular Hemoglobin 32 pg (25-35) Mean Corpuscular Hemoglobin Concent 33 g/dL (31-37) Red Cell Distribution Width 16.4 % (11.5-14.5) Platelet Count 113 x10^3/uL (140-400) Sodium Level 133 mmol/L (136-145) Potassium Level 4.5 mmol/L (3.5-5.1) Chloride Level 96 mmol/L (98-107) Carbon Dioxide Level 28 mmol/L (21-32) Anion Gap 9 (6-14) Blood Urea Nitrogen 49 mg/dL (8-26) Creatinine 2.2 mg/dL (0.7-1.3) Estimated GFR (Cockcroft-Gault) 28.6 Glucose Level 119 mg/dL (70-99) Calcium Level 8.4 mg/dL (8.5-10.1) Total Bilirubin 11.2 mg/dL (0.2-1.0) Direct Bilirubin 8.5 mg/dL (0.0-0.2) Aspartate Amino Transf (AST/SGOT) 1477 U/L (15-37) Alanine Aminotransferase (ALT/SGPT) 784 U/L (16-63) Alkaline Phosphatase 70 U/L (46-116) Total Protein 5.6 g/dL (6.4-8.2) Albumin 2.0 g/dL (3.4-5.0) Test 08/19/20 07:05 08/19/20 08:30 White Blood Count 11.7 x10^3/uL (4.0-11.0) Red Blood Count 4.11 x10^6/uL (4.30-5.70) Hemoglobin 13.2 g/dL (13.0-17.5) Hematocrit 39.9 % (39.0-53.0) Mean Corpuscular Volume 97 fL (79-100) Mean Corpuscular Hemoglobin 32 pg (25-35) Mean Corpuscular Hemoglobin Concent 33 g/dL (31-37) Red Cell Distribution Width 16.5 % (11.5-14.5) Platelet Count 90 x10^3/uL (140-400) Neutrophils (%) (Auto) 85 % (31-73) Lymphocytes (%) (Auto) 5 % (24-48) Monocytes (%) (Auto) 10 % (0-9) Eosinophils (%) (Auto) 0 % (0-3) Basophils (%) (Auto) 0 % (0-3) Neutrophils # (Auto) 9.9 x10^3/uL (1.8-7.7) Lymphocytes # (Auto) 0.6 x10^3/uL (1.0-4.8) Monocytes # (Auto) 1.2 x10^3/uL (0.0-1.1) Eosinophils # (Auto) 0.0 x10^3/uL (0.0-0.7) Basophils # (Auto) 0.0 x10^3/uL (0.0-0.2) Sodium Level 130 mmol/L (136-145) Potassium Level 3.9 mmol/L (3.5-5.1) Chloride Level 94 mmol/L (98-107) Carbon Dioxide Level 31 mmol/L (21-32) Anion Gap 5 (6-14) Blood Urea Nitrogen 45 mg/dL (8-26) Creatinine 1.7 mg/dL (0.7-1.3) Estimated GFR (Cockcroft-Gault) 38.5 BUN/Creatinine Ratio 26 (6-20) Glucose Level 128 mg/dL (70-99) Calcium Level 8.1 mg/dL (8.5-10.1) Total Bilirubin 10.5 mg/dL (0.2-1.0) Aspartate Amino Transf (AST/SGOT) 792 U/L (15-37) Alanine Aminotransferase (ALT/SGPT) 611 U/L (16-63) Alkaline Phosphatase 58 U/L (46-116) Total Protein 5.1 g/dL (6.4-8.2) Albumin 1.5 g/dL (3.4-5.0) Albumin/Globulin Ratio 0.4 (1.0-1.7) O2 Saturation 99 % (92-99) Arterial Blood pH 7.54 (7.35-7.45) Arterial Blood pCO2 at Patient Temp 35 mmHg (35-46) Arterial Blood pO2 at Patient Temp 155 mmHg (65-108) Arterial Blood HCO3 29 mmol/L (21-28) Arterial Blood Base Excess 6 mmol/L (-3-3) FiO2 40% Laboratory Tests Test 08/18/20 10:44 08/19/20 07:05 08/19/20 08:30 White Blood Count 15.3 x10^3/uL (4.0-11.0) 11.7 x10^3/uL (4.0-11.0) Red Blood Count 4.67 x10^6/uL (4.30-5.70) 4.11 x10^6/uL (4.30-5.70) Hemoglobin 14.8 g/dL (13.0-17.5) 13.2 g/dL (13.0-17.5) Hematocrit 44.9 % (39.0-53.0) 39.9 % (39.0-53.0) Mean Corpuscular Volume 96 fL (79-100) 97 fL (79-100) Mean Corpuscular Hemoglobin 32 pg (25-35) 32 pg (25-35) Mean Corpuscular Hemoglobin Concent 33 g/dL (31-37) 33 g/dL (31-37) Red Cell Distribution Width 16.4 % (11.5-14.5) 16.5 % (11.5-14.5) Platelet Count 113 x10^3/uL (140-400) 90 x10^3/uL (140-400) Sodium Level 133 mmol/L (136-145) 130 mmol/L (136-145) Potassium Level 4.5 mmol/L (3.5-5.1) 3.9 mmol/L (3.5-5.1) Chloride Level 96 mmol/L (98-107) 94 mmol/L (98-107) Carbon Dioxide Level 28 mmol/L (21-32) 31 mmol/L (21-32) Anion Gap 9 (6-14) 5 (6-14) Blood Urea Nitrogen 49 mg/dL (8-26) 45 mg/dL (8-26) Creatinine 2.2 mg/dL (0.7-1.3) 1.7 mg/dL (0.7-1.3) Estimated GFR (Cockcroft-Gault) 28.6 38.5 Glucose Level 119 mg/dL (70-99) 128 mg/dL (70-99) Calcium Level 8.4 mg/dL (8.5-10.1) 8.1 mg/dL (8.5-10.1) Total Bilirubin 11.2 mg/dL (0.2-1.0) 10.5 mg/dL (0.2-1.0) Direct Bilirubin 8.5 mg/dL (0.0-0.2) Aspartate Amino Transf (AST/SGOT) 1477 U/L (15-37) 792 U/L (15-37) Alanine Aminotransferase (ALT/SGPT) 784 U/L (16-63) 611 U/L (16-63) Alkaline Phosphatase 70 U/L (46-116) 58 U/L (46-116) Total Protein 5.6 g/dL (6.4-8.2) 5.1 g/dL (6.4-8.2) Albumin 2.0 g/dL (3.4-5.0) 1.5 g/dL (3.4-5.0) Neutrophils (%) (Auto) 85 % (31-73) Lymphocytes (%) (Auto) 5 % (24-48) Monocytes (%) (Auto) 10 % (0-9) Eosinophils (%) (Auto) 0 % (0-3) Basophils (%) (Auto) 0 % (0-3) Neutrophils # (Auto) 9.9 x10^3/uL (1.8-7.7) Lymphocytes # (Auto) 0.6 x10^3/uL (1.0-4.8) Monocytes # (Auto) 1.2 x10^3/uL (0.0-1.1) Eosinophils # (Auto) 0.0 x10^3/uL (0.0-0.7) Basophils # (Auto) 0.0 x10^3/uL (0.0-0.2) BUN/Creatinine Ratio 26 (6-20) Albumin/Globulin Ratio 0.4 (1.0-1.7) O2 Saturation 99 % (92-99) Arterial Blood pH 7.54 (7.35-7.45) Arterial Blood pCO2 at Patient Temp 35 mmHg (35-46) Arterial Blood pO2 at Patient Temp 155 mmHg (65-108) Arterial Blood HCO3 29 mmol/L (21-28) Arterial Blood Base Excess 6 mmol/L (-3-3) FiO2 40% Medications Active Scripts Medications Dose Route/Sig Max Daily Dose Days Date Category Lasix (Furosemide) 40 Mg Tablet 1 Tab PO DAILY 30 08/16/20 Rx Potassium Chloride (Potassium Chloride) 20 Meq Tablet.er 20 Meq PO DAILY 30 08/16/20 Rx Aldactone (Spironolactone) 25 Mg Tablet 25 Mg PO DAILY@1200 30 08/16/20 Rx Pravastatin Sodium 40 Mg Tablet 1 Tab PO DAILY 12/06/19 Reported Levothyroxine Sodium 75 Mcg Tablet 1 Tab PO DAILY 07/27/19 Reported Tramadol Hcl 50 Mg Tablet 50 Mg PO TID 07/27/19 Reported Ascorbic Acid 500 Mg Tablet 500 Mg PO DAILY 03/28/19 Reported Flomax (Tamsulosin Hcl) 0.4 Mg Cap.er.24h 1 Cap PO DAILY 03/28/19 Reported Xarelto (Rivaroxaban) 20 Mg Tablet 20 Mg PO DAILY 06/26/17 Reported Prozac (Fluoxetine Hcl) 20 Mg Capsule 1 Cap PO DAILYWBKFT 06/26/17 Reported Carvedilol (Carvedilol) 6.25 Mg Tablet 1 Tab PO BID 09/26/16 Reported Fish Oil 1,200 mg Softgel ([place]-3S/Dha/Epa/Fish Oil) 1 Each Capsule 1 Each PO DAILY 04/06/16 Reported Multiple Vitamins (Multivitamin) 1 Each Tablet 1 Each PO DAILY 10/22/15 Reported Finasteride 5 Mg Tablet 1 Tab PO DAILY 10/22/15 Reported Children's Aspirin (Aspirin) 81 Mg Tab.chew 81 Mg PO 10/22/15 Reported Comments CXR 08/19 mild improvement in int infilt Impression . IMPRESSION: 1. Acute hypoxemic respiratory failure secondary to in-house cardiopulmonary arrest x 2. The patient was found in PEA. 2. Nonischemic cardiomyopathy with ejection fraction of 15% to 20%. 3. Chronic diastolic and systolic heart failure. 4. Chronic obstructive pulmonary disease. 5. Hypertension. 6. Chronic anemia. 7. Secondary pulmonary hypertension. 8. Coronary artery disease with previous stenting of the LAD in 2016. 9. Chronic atrial fibrillation. 10. History of cerebrovascular accident with right-sided hemiparesis. 11. Acute on chronic kidney disease. 12. Hypothyroidism. 13. Pulseless right Lower ext. 14. Anoxic encephalopathy Plan . PLAN: Continue vent support off sedation, not Follow ABG/CXR, change vent setting to 14/450/5/40% Off sedation since 0715AM on 08/17-- follow neurology recs, ct head today Await BLE artieral U/S for concerned pulseless RLE ext. -- off Vasoprssors Follow cardiology recs Consult GI and Follow GI recs in regards to GI bleeding Monitor HGB and BMP PPN for nutritional support prognosis poor likely anoxic encephalopathy DVT/GI PPX D/W RN and RT Critical Care Time [id number] JESUS MANUEL LYN MD Aug 19, 2020 10:14
--- NOTE | 2020-08-19 10:19 | PDOC ---
OKSANA PAINTER VEGETABLE SCULLION 08/19/20 1019: CARDIO Progress Notes Date and Time Date of Service 08/19/20 Time of Evaluation 1015 Subjective Subjective: Other (intubated, off sedation ) Vitals Vitals Vital Signs Date Time Temp Pulse Resp B/P (MAP) Pulse Ox O2 Delivery O2 Flow Rate FiO2 08/19/20 08:19 100 Ventilator 08/19/20 07:55 14 4.0 08/19/20 06:19 73 108/65 (79) 08/19/20 04:00 97.9 97.9 Weight Weight [ ] Input and Output Intake and Output Intake and Output 08/19/20 07:00 Intake Total 1607 ml Output Total 1635 ml Balance -28 ml Intake Oral 0 ml IV Total 1607 ml Output Urine Total 935 ml Gastric Drainage Total 700 ml Laboratory Labs Laboratory Tests Test 08/18/20 10:44 08/19/20 07:05 08/19/20 08:30 White Blood Count 15.3 x10^3/uL (4.0-11.0) 11.7 x10^3/uL (4.0-11.0) Red Blood Count 4.67 x10^6/uL (4.30-5.70) 4.11 x10^6/uL (4.30-5.70) Hemoglobin 14.8 g/dL (13.0-17.5) 13.2 g/dL (13.0-17.5) Hematocrit 44.9 % (39.0-53.0) 39.9 % (39.0-53.0) Mean Corpuscular Volume 96 fL (79-100) 97 fL (79-100) Mean Corpuscular Hemoglobin 32 pg (25-35) 32 pg (25-35) Mean Corpuscular Hemoglobin Concent 33 g/dL (31-37) 33 g/dL (31-37) Red Cell Distribution Width 16.4 % (11.5-14.5) 16.5 % (11.5-14.5) Platelet Count 113 x10^3/uL (140-400) 90 x10^3/uL (140-400) Sodium Level 133 mmol/L (136-145) 130 mmol/L (136-145) Potassium Level 4.5 mmol/L (3.5-5.1) 3.9 mmol/L (3.5-5.1) Chloride Level 96 mmol/L (98-107) 94 mmol/L (98-107) Carbon Dioxide Level 28 mmol/L (21-32) 31 mmol/L (21-32) Anion Gap 9 (6-14) 5 (6-14) Blood Urea Nitrogen 49 mg/dL (8-26) 45 mg/dL (8-26) Creatinine 2.2 mg/dL (0.7-1.3) 1.7 mg/dL (0.7-1.3) Estimated GFR (Cockcroft-Gault) 28.6 38.5 Glucose Level 119 mg/dL (70-99) 128 mg/dL (70-99) Calcium Level 8.4 mg/dL (8.5-10.1) 8.1 mg/dL (8.5-10.1) Total Bilirubin 11.2 mg/dL (0.2-1.0) 10.5 mg/dL (0.2-1.0) Direct Bilirubin 8.5 mg/dL (0.0-0.2) Aspartate Amino Transf (AST/SGOT) 1477 U/L (15-37) 792 U/L (15-37) Alanine Aminotransferase (ALT/SGPT) 784 U/L (16-63) 611 U/L (16-63) Alkaline Phosphatase 70 U/L (46-116) 58 U/L (46-116) Total Protein 5.6 g/dL (6.4-8.2) 5.1 g/dL (6.4-8.2) Albumin 2.0 g/dL (3.4-5.0) 1.5 g/dL (3.4-5.0) Neutrophils (%) (Auto) 85 % (31-73) Lymphocytes (%) (Auto) 5 % (24-48) Monocytes (%) (Auto) 10 % (0-9) Eosinophils (%) (Auto) 0 % (0-3) Basophils (%) (Auto) 0 % (0-3) Neutrophils # (Auto) 9.9 x10^3/uL (1.8-7.7) Lymphocytes # (Auto) 0.6 x10^3/uL (1.0-4.8) Monocytes # (Auto) 1.2 x10^3/uL (0.0-1.1) Eosinophils # (Auto) 0.0 x10^3/uL (0.0-0.7) Basophils # (Auto) 0.0 x10^3/uL (0.0-0.2) BUN/Creatinine Ratio 26 (6-20) Albumin/Globulin Ratio 0.4 (1.0-1.7) O2 Saturation 99 % (92-99) Arterial Blood pH 7.54 (7.35-7.45) Arterial Blood pCO2 at Patient Temp 35 mmHg (35-46) Arterial Blood pO2 at Patient Temp 155 mmHg (65-108) Arterial Blood HCO3 29 mmol/L (21-28) Arterial Blood Base Excess 6 mmol/L (-3-3) FiO2 40% Microbiology Micro Microbiology 08/17/20 Urine Culture - Final, Complete 08/17/20 Blood Culture - Preliminary, Resulted NO GROWTH AFTER 1 DAY Physical Exam HEENT: Neck Supple W Full Motion Chest: Symmetric LUNGS: Other (mechanical vent ) Heart: RRR Abdomen: Other (non-distended ) Extremities: Other (trace bilateral LE edema, RLE cool to touch, erythma, mottling) Neurology: other (off sedation, no response ) Assessment Assessment 1. Acute on chronic diastolic/systolic CHF 2. Severe Cardiomyopathy: EF 15-20%. Patient has declined AICD placement. This was again verified this admission prior to intubation 3. S/p PEA arrest x2. BS 45 4. Acute respiratory failure secondary to above. S/p intubation 5. SERENA, hyperkalemia 6. Leukocytosis, probable sepsis; requiring pressor support 7. ? GIB. OB tube with coffee ground content. ASA, Xarelto held. Hgb stable. 8. CAD s/p PCI/stent. clinically stable. No VT/VF 8. Hyperlipidemia; statin 9. Paroxysmal AFIB; presently SR with PAC's. rate controlled 10. Hx of CVA with right side hemiparesis 11. Mild troponin elevation: suspect demand mediated 12. Hypothyroidism: on replacement 13. PAD; Arterial study with poor visualization of distal posterior tibial, dorsalis pedis, and peroneal arteries, possible occlusion. Vascular following 14. Transaminitis 15. Anoxic encephalopathy; off sedation, no response. EEG today. as per neurology Recommendations Bilateral Rook boots Resume anticoagulation therapy when okay from a GI standpoint PPI Monitor H and H Hold coreg with hypotension. May use IV Dig PRN for rate control Pressor support as warranted No statin with transaminitis Supportive care Now DNR Justicifation of Admission Dx: Justifications for Admission: Justification of Admission Dx: Yes SIMONE BULLOCK MD 08/19/20 1408: CARDIO Progress Notes Assessment Assessment Patient seen and examined I agree with our nurse practitioners assessment and plan as above. Severe Cardiomyopathy: EF 15-20%. Acute on chronic diastolic heart failure. Remains intubated. Followed by pulmonary. S/p PEA arrest x2. BS 45 Acute respiratory failure secondary to above. S/p intubation SERENA, hyperkalemia. Continue present treatment with monitoring of lab. Leukocytosis, probable sepsis; requiring pressor support ? GIB. OB tube with coffee ground content. ASA, Xarelto held. Hgb stable. CAD s/p PCI/stent. Hyperlipidemia; statin Paroxysmal AFIB; presently SR with PAC's. rate controlled Hx of CVA with right side hemiparesis PAD; vascular surgery evaluation as above. Transaminitis Anoxic encephalopathy; off sedation, no response. Followed by neurology. CT scan pending. OKSANA PAINTER APRN Aug 19, 2020 10:19 SIMONE BULLOCK MD Aug 19, 2020 14:08
[2020-08-19] MEDS: MULTIVITAMIN with MINERAL TABLET. PO SCH (10:30)
--- NOTE | 2020-08-19 10:31 | PDOC ---
PROGRESS NOTES Date of Service DATE: 08/19/20 TIME: 10:26 Assessment Problems Medical Problems: (1) Chronic a-fib Status: Chronic (2) Hyponatremia Status: Acute Anoxic encephalopathy EEG shows marked slowing of background and decreased amplitude, but not brain Status pulse pulseless electrical activity, coded twice. History of left middle cerebral artery stroke Congestive heart failure, severe cardiomyopathy, respiratory failure, acute kidney injury, leukocytosis probable sepsis, hyperbilirubinemia/transaminitis, possible GI bleed, atrial fib, hyperlipidemia, elevated troponin, hypothyroid, potential occlusion of right distal posterior tibial, dorsalis pedis and peroneal arteries Plan CT head DNR Will discuss with after CT head done Subjective None Objective Vital Signs Date Time Temp Pulse Resp B/P (MAP) Pulse Ox O2 Delivery O2 Flow Rate FiO2 08/19/20 08:19 100 Ventilator 08/19/20 07:55 14 4.0 08/19/20 06:19 73 108/65 (79) 08/19/20 04:00 97.9 97.9 Intake and Output 08/19/20 07:00 Intake Total 1607 ml Output Total 1635 ml Balance -28 ml Intake Oral 0 ml IV Total 1607 ml Output Urine Total 935 ml Gastric Drainage Total 700 ml PHYSICAL EXAM Intubated, not on sedation, no response to voice, minimal withdrawal to pain PERRL. CN: no focal findings. Muscle tone: normal. Muscle strength: Slight withdrawal to pain DTR: 1+ Plantar reflex: Silent Gait: not examined Sensory exam: Not cooperative Cerebellar: Not cooperative Review of Relevant I have reviewed the following items joana (where applicable) has been applied. Labs Laboratory Tests Test 08/17/20 12:46 08/17/20 14:45 08/18/20 08:00 08/18/20 10:44 Glucose (Fingerstick) 87 mg/dL (70-99) Urine Collection Type Unknown Urine Color [place] Urine Clarity Clear Urine pH 5.5 (<5.0-8.0) Urine Specific [place] 1.020 (1.000-1.030) Urine Protein 100 mg/dL (NEG-TRACE) Urine Glucose (UA) Negative mg/dL (NEG) Urine Ketones (Stick) Trace mg/dL (NEG) Urine Blood Large (NEG) Urine Nitrite Negative (NEG) Urine Bilirubin Moderate (NEG) Urine Urobilinogen Dipstick 4.0 mg/dL (0.2 mg/dL) Urine Leukocyte Esterase Small (NEG) Urine RBC 11-20 /HPF (0-2) Urine WBC 1-4 /HPF (0-4) Urine Squamous Epithelial Cells Occ /LPF Urine Bacteria Few /HPF (0-FEW) Urine Hyaline Casts Moderate /HPF Urine Granular Casts Few /HPF Urine Red Blood Cell Casts Occasional /HPF Urine Mucus Slight /LPF O2 Saturation 99 % (92-99) Arterial Blood pH 7.53 (7.35-7.45) Arterial Blood pCO2 at Patient Temp 37 mmHg (35-46) Arterial Blood pO2 at Patient Temp 139 mmHg (65-108) Arterial Blood HCO3 30 mmol/L (21-28) Arterial Blood Base Excess 7 mmol/L (-3-3) FiO2 50/vent White Blood Count 15.3 x10^3/uL (4.0-11.0) Red Blood Count 4.67 x10^6/uL (4.30-5.70) Hemoglobin 14.8 g/dL (13.0-17.5) Hematocrit 44.9 % (39.0-53.0) Mean Corpuscular Volume 96 fL (79-100) Mean Corpuscular Hemoglobin 32 pg (25-35) Mean Corpuscular Hemoglobin Concent 33 g/dL (31-37) Red Cell Distribution Width 16.4 % (11.5-14.5) Platelet Count 113 x10^3/uL (140-400) Sodium Level 133 mmol/L (136-145) Potassium Level 4.5 mmol/L (3.5-5.1) Chloride Level 96 mmol/L (98-107) Carbon Dioxide Level 28 mmol/L (21-32) Anion Gap 9 (6-14) Blood Urea Nitrogen 49 mg/dL (8-26) Creatinine 2.2 mg/dL (0.7-1.3) Estimated GFR (Cockcroft-Gault) 28.6 Glucose Level 119 mg/dL (70-99) Calcium Level 8.4 mg/dL (8.5-10.1) Total Bilirubin 11.2 mg/dL (0.2-1.0) Direct Bilirubin 8.5 mg/dL (0.0-0.2) Aspartate Amino Transf (AST/SGOT) 1477 U/L (15-37) Alanine Aminotransferase (ALT/SGPT) 784 U/L (16-63) Alkaline Phosphatase 70 U/L (46-116) Total Protein 5.6 g/dL (6.4-8.2) Albumin 2.0 g/dL (3.4-5.0) Test 08/19/20 07:05 08/19/20 08:30 White Blood Count 11.7 x10^3/uL (4.0-11.0) Red Blood Count 4.11 x10^6/uL (4.30-5.70) Hemoglobin 13.2 g/dL (13.0-17.5) Hematocrit 39.9 % (39.0-53.0) Mean Corpuscular Volume 97 fL (79-100) Mean Corpuscular Hemoglobin 32 pg (25-35) Mean Corpuscular Hemoglobin Concent 33 g/dL (31-37) Red Cell Distribution Width 16.5 % (11.5-14.5) Platelet Count 90 x10^3/uL (140-400) Neutrophils (%) (Auto) 85 % (31-73) Lymphocytes (%) (Auto) 5 % (24-48) Monocytes (%) (Auto) 10 % (0-9) Eosinophils (%) (Auto) 0 % (0-3) Basophils (%) (Auto) 0 % (0-3) Neutrophils # (Auto) 9.9 x10^3/uL (1.8-7.7) Lymphocytes # (Auto) 0.6 x10^3/uL (1.0-4.8) Monocytes # (Auto) 1.2 x10^3/uL (0.0-1.1) Eosinophils # (Auto) 0.0 x10^3/uL (0.0-0.7) Basophils # (Auto) 0.0 x10^3/uL (0.0-0.2) Sodium Level 130 mmol/L (136-145) Potassium Level 3.9 mmol/L (3.5-5.1) Chloride Level 94 mmol/L (98-107) Carbon Dioxide Level 31 mmol/L (21-32) Anion Gap 5 (6-14) Blood Urea Nitrogen 45 mg/dL (8-26) Creatinine 1.7 mg/dL (0.7-1.3) Estimated GFR (Cockcroft-Gault) 38.5 BUN/Creatinine Ratio 26 (6-20) Glucose Level 128 mg/dL (70-99) Calcium Level 8.1 mg/dL (8.5-10.1) Total Bilirubin 10.5 mg/dL (0.2-1.0) Aspartate Amino Transf (AST/SGOT) 792 U/L (15-37) Alanine Aminotransferase (ALT/SGPT) 611 U/L (16-63) Alkaline Phosphatase 58 U/L (46-116) Total Protein 5.1 g/dL (6.4-8.2) Albumin 1.5 g/dL (3.4-5.0) Albumin/Globulin Ratio 0.4 (1.0-1.7) O2 Saturation 99 % (92-99) Arterial Blood pH 7.54 (7.35-7.45) Arterial Blood pCO2 at Patient Temp 35 mmHg (35-46) Arterial Blood pO2 at Patient Temp 155 mmHg (65-108) Arterial Blood HCO3 29 mmol/L (21-28) Arterial Blood Base Excess 6 mmol/L (-3-3) FiO2 40% Laboratory Tests Test 08/18/20 10:44 08/19/20 07:05 08/19/20 08:30 White Blood Count 15.3 x10^3/uL (4.0-11.0) 11.7 x10^3/uL (4.0-11.0) Red Blood Count 4.67 x10^6/uL (4.30-5.70) 4.11 x10^6/uL (4.30-5.70) Hemoglobin 14.8 g/dL (13.0-17.5) 13.2 g/dL (13.0-17.5) Hematocrit 44.9 % (39.0-53.0) 39.9 % (39.0-53.0) Mean Corpuscular Volume 96 fL (79-100) 97 fL (79-100) Mean Corpuscular Hemoglobin 32 pg (25-35) 32 pg (25-35) Mean Corpuscular Hemoglobin Concent 33 g/dL (31-37) 33 g/dL (31-37) Red Cell Distribution Width 16.4 % (11.5-14.5) 16.5 % (11.5-14.5) Platelet Count 113 x10^3/uL (140-400) 90 x10^3/uL (140-400) Sodium Level 133 mmol/L (136-145) 130 mmol/L (136-145) Potassium Level 4.5 mmol/L (3.5-5.1) 3.9 mmol/L (3.5-5.1) Chloride Level 96 mmol/L (98-107) 94 mmol/L (98-107) Carbon Dioxide Level 28 mmol/L (21-32) 31 mmol/L (21-32) Anion Gap 9 (6-14) 5 (6-14) Blood Urea Nitrogen 49 mg/dL (8-26) 45 mg/dL (8-26) Creatinine 2.2 mg/dL (0.7-1.3) 1.7 mg/dL (0.7-1.3) Estimated GFR (Cockcroft-Gault) 28.6 38.5 Glucose Level 119 mg/dL (70-99) 128 mg/dL (70-99) Calcium Level 8.4 mg/dL (8.5-10.1) 8.1 mg/dL (8.5-10.1) Total Bilirubin 11.2 mg/dL (0.2-1.0) 10.5 mg/dL (0.2-1.0) Direct Bilirubin 8.5 mg/dL (0.0-0.2) Aspartate Amino Transf (AST/SGOT) 1477 U/L (15-37) 792 U/L (15-37) Alanine Aminotransferase (ALT/SGPT) 784 U/L (16-63) 611 U/L (16-63) Alkaline Phosphatase 70 U/L (46-116) 58 U/L (46-116) Total Protein 5.6 g/dL (6.4-8.2) 5.1 g/dL (6.4-8.2) Albumin 2.0 g/dL (3.4-5.0) 1.5 g/dL (3.4-5.0) Neutrophils (%) (Auto) 85 % (31-73) Lymphocytes (%) (Auto) 5 % (24-48) Monocytes (%) (Auto) 10 % (0-9) Eosinophils (%) (Auto) 0 % (0-3) Basophils (%) (Auto) 0 % (0-3) Neutrophils # (Auto) 9.9 x10^3/uL (1.8-7.7) Lymphocytes # (Auto) 0.6 x10^3/uL (1.0-4.8) Monocytes # (Auto) 1.2 x10^3/uL (0.0-1.1) Eosinophils # (Auto) 0.0 x10^3/uL (0.0-0.7) Basophils # (Auto) 0.0 x10^3/uL (0.0-0.2) BUN/Creatinine Ratio 26 (6-20) Albumin/Globulin Ratio 0.4 (1.0-1.7) O2 Saturation 99 % (92-99) Arterial Blood pH 7.54 (7.35-7.45) Arterial Blood pCO2 at Patient Temp 35 mmHg (35-46) Arterial Blood pO2 at Patient Temp 155 mmHg (65-108) Arterial Blood HCO3 29 mmol/L (21-28) Arterial Blood Base Excess 6 mmol/L (-3-3) FiO2 40% Microbiology 08/17/20 Urine Culture - Final, Complete 08/17/20 Blood Culture - Preliminary, Resulted NO GROWTH AFTER 1 DAY Medications Current Medications Aspirin (Aspirin Chewable) 162 mg 1X ONCE PO Last administered on 08/12/20at 18:53; Start 08/12/20 at 18:15; Stop 08/12/20 at 18:16; Status DC Nitroglycerin (Nitrostat) 0.4 mg PRN Q5MIN PRN SL CHEST PAIN; Start 08/12/20 at 20:00; Stop 08/13/20 at 19:59; Status DC Furosemide (Lasix) 40 mg 1X ONCE IVP Last administered on 08/12/20at 20:34; Start 08/12/20 at 20:00; Stop 08/12/20 at 20:01; Status DC Ascorbic Acid (Vitamin C) 500 mg DAILY PO Last administered on 08/19/20at 07:56; Start 08/13/20 at 09:00 Aspirin (Aspirin Chewable) 81 mg DAILYWBKFT PO Last administered on 08/16/20at 08:49; Start 08/13/20 at 08:00; Stop 08/17/20 at 14:43; Status DC Carvedilol (Coreg) 6.25 mg BIDWMEALS PO Last administered on 08/16/20at 16:24; Start 08/13/20 at 08:00; Stop 08/17/20 at 14:43; Status DC Finasteride (Proscar) 5 mg DAILY PO Last administered on 08/19/20at 07:54; Start 08/13/20 at 09:00 Fluoxetine HCl (PROzac) 20 mg DAILYWBKFT PO Last administered on 08/19/20at 07:54; Start 08/13/20 at 08:00 Levothyroxine Sodium (Synthroid) 75 mcg DAILY06 PO Last administered on 08/13/20at 05:45; Start 08/13/20 at 06:00; Stop 08/13/20 at 08:59; Status DC Tamsulosin HCl (Flomax) 0.4 mg DAILY PO Last administered on 08/18/20at 09:03; Start 08/13/20 at 09:00 Tramadol HCl (Ultram) 50 mg TID PO Last administered on 08/19/20at 07:55; Start 08/13/20 at 09:00 Multivitamins (Thera M Plus) 1 tab DAILY PO Last administered on 08/18/20at 09:03; Start 08/13/20 at 09:00 Fish Oil (Fish Oil) 1,000 mg DAILY PO Last administered on 08/19/20at 07:54; Start 08/13/20 at 09:00 Atorvastatin Calcium (Lipitor) 10 mg QHS PO Last administered on 08/18/20at 21:18; Start 08/13/20 at 21:00 Rivaroxaban (Xarelto) 20 mg DAILY PO Last administered on 08/13/20at 08:44; Start 08/13/20 at 09:00; Stop 08/13/20 at 12:44; Status DC Tramadol HCl (Ultram) 100 mg PRN QHS PRN PO PAIN; Start 08/12/20 at 23:15 Levothyroxine Sodium (Synthroid) 88 mcg DAILY06 PO Last administered on 08/19/20at 05:44; Start 08/14/20 at 06:00 Furosemide (Lasix) 40 mg BID92 IVP Last administered on 08/16/20at 08:50; Start 08/13/20 at 09:00; Stop 08/16/20 at 14:04; Status DC Rivaroxaban (Xarelto) 15 mg DAILYWBKFT PO Last administered on 08/16/20at 08:50; Start 08/14/20 at 08:00; Stop 08/17/20 at 14:43; Status DC Potassium Chloride (Klor-Con) 10 meq TIDWMEALS PO ; Start 08/14/20 at 08:00; Stop 08/14/20 at 08:59; Status DC Potassium Chloride (Klor-Con) 20 meq TIDWMEALS PO Last administered on 08/16/20at 17:32; Start 08/14/20 at 09:00; Stop 08/17/20 at 14:43; Status DC Spironolactone (Aldactone) 25 mg DAILY@1200 PO Last administered on 08/16/20at 14:11; Start 08/14/20 at 12:00; Stop 08/17/20 at 14:43; Status DC Albuterol Sulfate (Ventolin Neb Soln) 2.5 mg PRN TID PRN NEB SHORTNESS OF BREATH Last administered on 08/16/20at 14:21; Start 08/15/20 at 23:30 Alprazolam (Xanax) 0.25 mg PRN Q6HRS PRN PO ANXIETY / AGITATION Last administered on 08/16/20at 14:10; Start 08/16/20 at 14:00 Dextrose (Dextrose 50%-Water Syringe) 25 gm STK-MED ONCE IV ; Start 08/16/20 at 19:44; Stop 08/16/20 at 19:44; Status DC Dextrose (Dextrose 50%-Water Syringe) 25 gm STK-MED ONCE IV ; Start 08/16/20 at 20:05; Stop 08/16/20 at 20:06; Status DC Propofol 100 ml @ As Directed STK-MED ONCE IV ; Start 08/16/20 at 20:28; Stop 08/16/20 at 20:28; Status DC Fentanyl Citrate 30 ml @ 0 mls/hr CONT PRN IV SEE PROTOCOL Last administered on 08/17/20at 19:27; Start 08/16/20 at 20:30 Propofol 100 ml @ 0 mls/hr CONT PRN IV PER PROTOCOL Last administered on 08/16/20at 20:34; Start 08/16/20 at 20:30 Norepinephrine Bitartrate 8 mg/ Dextrose 258 ml @ 16.177 mls/ hr CONT PRN IV PER PROTOCOL Last administered on 08/18/20at 21:19; Start 08/16/20 at 21:00 Midazolam HCl 100 ml @ 1 mls/hr CONT PRN IV SEE I/O RECORD Last administered on 08/17/20at 12:32; Start 08/16/20 at 21:00 Info (Anti-Coagulation Monitoring By Pharmacy) 1 each PRN DAILY PRN MC SEE COMMENTS Last administered on 08/17/20at 12:17; Start 08/17/20 at 08:15 Dextrose (Dextrose 50%-Water Syringe) 50 gm STK-MED ONCE IV ; Start 08/16/20 at 20:00; Stop 08/17/20 at 08:50; Status DC Vancomycin HCl 1 gm/Sodium Chloride 250 ml @ 250 mls/hr Q24H IV ; Start 08/17/20 at 09:00; Status UNV Cefepime HCl (Maxipime) 2 gm Q8HRS IVP Last administered on 08/17/20at 11:23; Start 08/17/20 at 10:00; Stop 08/17/20 at 11:49; Status DC Pantoprazole Sodium (PROTONIX VIAL for IV PUSH) 40 mg DAILYAC IVP Last administered on 08/19/20at 07:54; Start 08/17/20 at 09:30 Vancomycin HCl (Vanco Per Pharmacy) 1 each PRN DAILY PRN MC SEE COMMENTS Last administered on 08/17/20at 12:04; Start 08/17/20 at 09:30; Stop 08/17/20 at 12:26; Status DC Vancomycin HCl 1.75 gm/Sodium Chloride 500 ml @ 250 mls/hr 1X ONCE IV Last administered on 08/17/20at 09:39; Start 08/17/20 at 10:00; Stop 08/17/20 at 11:59; Status DC Cefepime HCl (Maxipime) 2 gm Q24H IVP ; Start 08/18/20 at 11:00; Stop 08/17/20 at 12:26; Status DC Vancomycin HCl (Vancomycin Random Level) 1 each 1X ONCE MC ; Start 08/18/20 at 10:00; Stop 08/17/20 at 12:28; Status DC Piperacillin Sod/ Tazobactam Sod 2.25 gm/Sodium Chloride 50 ml @ 100 mls/hr Q8HRS IV Last administered on 08/19/20at 05:44; Start 08/17/20 at 13:00 Doxycycline Hyclate 100 mg/ Dextrose 100 ml @ 50 mls/hr Q12HR IV Last administered on 08/18/20at 21:18; Start 08/17/20 at 13:00 Amino Acids/ Glycerin/ Electrolytes 1,000 ml @ 80 mls/hr [id number] IV Last administered on 08/18/20at 22:55; Start 08/18/20 at 10:00 Epinephrine HCl (EPINEPHrine SYRINGE) 2 mg STK-MED ONCE .ROUTE ; Start 08/17/20 at 12:00; Stop 08/18/20 at 10:13; Status DC Active Scripts Active Lasix (Furosemide) 40 Mg Tablet 1 Tab PO DAILY 30 Days Potassium Chloride (Potassium Chloride) 20 Meq Tablet.er 20 Meq PO DAILY 30 Days Aldactone (Spironolactone) 25 Mg Tablet 25 Mg PO DAILY@1200 30 Days Reported Pravastatin Sodium 40 Mg Tablet 1 Tab PO DAILY Levothyroxine Sodium 75 Mcg Tablet 1 Tab PO DAILY Tramadol Hcl 50 Mg Tablet 50 Mg PO TID Ascorbic Acid 500 Mg Tablet 500 Mg PO DAILY Flomax (Tamsulosin Hcl) 0.4 Mg Cap.er.24h 1 Cap PO DAILY Xarelto (Rivaroxaban) 20 Mg Tablet 20 Mg PO DAILY Prozac (Fluoxetine Hcl) 20 Mg Capsule 1 Cap PO DAILYWBKFT Carvedilol (Carvedilol) 6.25 Mg Tablet 1 Tab PO BID Fish Oil 1,200 mg Softgel ([place]-3S/Dha/Epa/Fish Oil) 1 Each Capsule 1 Each PO DAILY Multiple Vitamins (Multivitamin) 1 Each Tablet 1 Each PO DAILY Finasteride 5 Mg Tablet 1 Tab PO DAILY Children's Aspirin (Aspirin) 81 Mg Tab.chew 81 Mg PO Vitals/I & O Vital Sign - Last 24 Hours 08/18/20 08/18/20 08/18/20 08/18/20 11:00 12:00 12:00 12:30 Temp 98.6 98.6 Pulse 96 92 Resp 18 19 B/P (MAP) 121/76 (91) 117/79 (92) Pulse Ox 100 100 100 O2 Delivery Ventilator Ventilator Mechanical Ventilator Ventilator 08/18/20 08/18/20 08/18/20 08/18/20 12:30 13:00 13:15 14:00 Pulse 91 91 91 90 Resp 18 20 20 20 B/P (MAP) 105/70 (82) 112/70 (84) 102/64 (77) 102/95 (97) Pulse Ox 100 100 100 100 O2 Delivery Ventilator Ventilator Ventilator Ventilator 08/18/20 08/18/20 08/18/20 08/18/20 15:00 16:00 16:00 16:23 Temp 98.4 98.4 Pulse 79 90 Resp 17 17 B/P (MAP) 94/61 (72) 82/57 (65) Pulse Ox 100 100 100 O2 Delivery Ventilator Ventilator Mechanical Ventilator Ventilator 08/18/20 08/18/20 08/18/20 08/18/20 17:00 18:00 19:00 19:51 Temp 98.9 98.9 Pulse 81 79 79 Resp 17 18 16 B/P (MAP) 95/57 (70) 99/63 (75) 116/68 (84) Pulse Ox 100 100 100 100 O2 Delivery Ventilator Ventilator Ventilator Ventilator 08/18/20 08/18/20 08/18/20 08/18/20 20:00 20:00 21:00 21:00 Pulse 90 89 Resp 16 16 B/P (MAP) 121/90 (100) 103/54 (70) 118/89 (99) Pulse Ox 100 100 O2 Delivery Mechanical Ventilator Ventilator Ventilator 08/18/20 08/18/20 08/18/20 08/18/20 22:00 23:00 23:36 23:59 Temp 98.2 98.2 Pulse 76 74 72 Resp 16 18 16 B/P (MAP) 111/70 (84) 105/60 (75) 112/65 (81) Pulse Ox 100 100 100 100 O2 Delivery Ventilator Ventilator Ventilator Ventilator 08/18/20 08/19/20 08/19/20 08/19/20 23:59 01:00 01:15 02:00 Pulse 78 82 Resp 18 18 B/P (MAP) 118/72 (87) 106/69 (81) 111/60 (77) Pulse Ox 100 98 O2 Delivery Mechanical Ventilator Ventilator Ventilator 08/19/20 08/19/20 08/19/20 08/19/20 03:00 03:16 03:42 04:00 Temp 97.9 97.9 Pulse 82 77 Resp 18 18 B/P (MAP) 131/71 (91) 113/68 (83) 80/40 (53) Pulse Ox 98 100 99 O2 Delivery Ventilator Ventilator Ventilator 08/19/20 08/19/20 08/19/20 08/19/20 04:00 04:15 05:00 06:19 Pulse 73 73 Resp 14 14 B/P (MAP) 96/64 (75) 114/66 (82) 108/65 (79) Pulse Ox 99 99 O2 Delivery Mechanical Ventilator Ventilator Ventilator 08/19/20 08/19/20 08/19/20 07:55 08:00 08:19 Resp 14 Pulse Ox 99 100 O2 Delivery Mechanical Ventilator Ventilator O2 Flow Rate 4.0 Intake and Output 08/18/20 08/18/20 08/19/20 15:00 23:00 07:00 Intake Total 100 ml 1140 ml 367 ml Output Total 350 ml 970 ml 315 ml Balance -250 ml 170 ml 52 ml Justicifation of Admission Dx: Justifications for Admission: Justification of Admission Dx: Yes DAVIDA PRITCHETT MD Aug 19, 2020 10:31
--- NOTE | 2020-08-19 11:08 | EEG ---
DATE OF SERVICE: 08/19/2020 EEG NUMBER: [id number]. OBJECTIVE: The patient is an 85-year-old male status post cardiac arrest. DESCRIPTION: This is a digital study. Electrodes are placed according to the international 10-20 system. Bipolar and referential montages are available. Activation procedures typically include hyperventilation and intermittent photic stimulation. INTERPRETATION: The record consists of monotonous 2-3 Hz, 10 microvolt activity without any reactivity. Hyperventilation is not performed. Intermittent photic stimulation is noncontributory. IMPRESSION: This electroencephalogram with the patient in an obtunded state is abnormal because of a moderate-severe disturbance of cerebral activity consistent with the history of anoxia. There is no focal, paroxysmal, or epileptiform activity. Thank you for letting us help with the patient's care. DAVIDA PRITCHETT MD DR: RENY/christiano JOB#: [id number] / [id number] VERENICE Pinedo MD
[2020-08-19] MEDS: NOREPINEPHRINE VIAL 8 MG in IV DEXTROSE 5% 250 ML IV PRN (11:52)
--- NOTE | 2020-08-19 11:55 | NUR ---
NOTE : All meds scanned and administered 15. Saved on wow in room/not done so on main screen. Auto documented as med covers are gone from trash. Bedside EEG earlier/to CT w results pending. Phone communication w Nona.
[2020-08-19] MEDS: AMINO AC 3%/ELECTROLYTE/GLYCER 1,000 ML IV SCH (13:28)
--- NOTE | 2020-08-19 14:32 | NUR ---
SS following up with discharge planning. SS reviewed pt chart and discussed with pt RN. Pt is currently on the vent at 40%. Pt on IV Doxycycline and IV Zosyn. PPN. Per pt's RN, boots were placed on pt's feet and pt's foot is now warm and has a pulse. Pt has severe PAD. SS will continue to follow for discharge planning.
--- NOTE | 2020-08-19 14:40 | RAD ---
PQRS Compliance Statement: One or more of the following individualized dose reduction techniques were utilized for this examinat ion: 1. Automated exposure control 2. Adjustment of the mA and/or kV according to patient size 3. Use of iterative reconstruction technique CT HEAD WITHOUT CONTRAST History: Reason: post code : Comparison: CT head without contrast April 23, 2017. Technique: Axial images are obtained of the head from the skull base through the vertex without IV co ntrast. Findings: There is hypoattenuation and sulcal effacement in the left posterior temporal and parietal lobe, dist al left MCA vascular distribution. No midline shift, extra-axial fluid collection, or acute hemorrhage is identified. Basilar cisterns are patent. Generalized cerebral atrophy. Bone windows demonstrate no acute calvarial abnormality. There is mucosal thickening of the bilateral ethmoid sinuses. There is an air-fluid level in the left maxillary sinus. The left maxillary sinus is half opacified. Mastoid air cells are well aerated. IMPRESSION: 1. There is subacute infarct in a distal left MCA vascular distribution. 2. No acute hemorrhage. 3. Generalized cerebral atrophy. 4. There is acute left maxillary sinusitis. Electronically signed by: Bear Felder MD (08/19/2020 2:38 PM) [id number]
[2020-08-19] MEDS: DOXYCYCLINE HYCLATE 100 MG in IV DEXTROSE 5% 100ML 100 ML IV SCH (15:49)
[2020-08-19] MEDS ORDERED: MORPHINE SULFATE 4 MG/ML VIAL. IVP PRN (16:30)
[2020-08-19] MEDS ORDERED: ACETAMINOPHEN 650 MG SUPP.RECT. PR PRN (16:30)
[2020-08-19] MEDS: PROPOFOL 100 ML IV PRN (17:31)
--- NOTE | 2020-08-19 18:22 | NUR ---
Dr Jefferson called Nona w explanation of dire condition. Called unit to inform RN of families wishes to extubate and call her when patient was pronounced. 3 min later called and stated she was coming in to be with him at time of . Meds per order,IV lines and NG removed prior to Nona on unit. Patient extubated at 1735 /pronounced at 1800. All personal belongings(O2 cannister,slippers ,overcoat ,purple face mask from home returned to . Clarks notified w # recorded on chart. Not a candidate at this time. Pronounced by 2 RNs per protocol w all MDs informed of event
--- NOTE | 2020-08-20 19:45 | DS ---
DATE OF DISCHARGE: 08/19/2020 SUMMARY DATE OF DISCHARGE: 08/19/2020. HOSPITAL SUMMARY: An 85-year-old male with known severe cardiomyopathy, ejection fraction of 20%, came in with fatigue, shortness of breath and edema and chest x-ray consistent with congestive heart failure. Laboratory study showed a very high BNP and renal function was somewhat decreased consistent with his condition. He was diuresed for about the first 3 days and did well with good reduction of edema and shortness of breath, but the day prior to his , he developed increasing fatigue, weakness, and shortness of breath. He had been off his Xarelto briefly because of some coffee-ground emesis, but then coded on the floor and was intubated. Xarelto was held because of coffee-ground NG material. He was treated with IV Protonix and multiple drips including norepinephrine for blood pressure support. CT scan was ultimately of the head done and showed a large subacute infarct of the left middle cerebral artery consistent with his presenting problem. His after neurologic and other consultations felt that he would be made a DNR and he was extubated and a short period of time after his extubation. FINAL DIAGNOSES: 1. [id number] congestive heart failure with reduced ejection fraction. 2. Acute cerebrovascular accident, left middle cerebral artery occlusion, likely secondary to atrial fibrillation and embolic event, fatal. 3. Anemia of chronic disease. OPERATIONS, PROCEDURES, COMPLICATIONS: None. CONSULTATIONS: Dr. Raya, Dr. Crooks, Dr. Jefferson, Dr. Rhodes. DISPOSITION: Family requested no postmortem exam and he was released to the home. VERENICE BLOOD MD DR: ALEXANDRA/christiano JOB#: [id number] / [id number]
== END 2020-08-19 18:00 | DRG 208 ==
LOC: ER 16:49 → 2 NORTH 19:57 → 1 WEST ICU 08-16 20:30
PROVIDERS: ADMIT Family Medicine; ATTEND Family Medicine
PROC: 5A1945Z Respiratory Ventilation, 24-96 Consecutive Hours (ICD-10-PCS; principal; 2020-08-16)
PROC: 0BH17EZ Insertion of Endotracheal Airway into Trachea, Via Natural or Artificial Opening (ICD-10-PCS; 2020-08-16)
PROC: 5A12012 Performance of Cardiac Output, Single, Manual (ICD-10-PCS; 2020-08-17)
DX: J96.21 Acute and chronic respiratory failure with hypoxia (principal); K72.00 Acute and subacute hepatic failure without coma; I50.43 Acute on chronic combined systolic (congestive) and diastolic (congestive) heart failure; I13.0 Hypertensive heart and chronic kidney disease with heart failure and stage 1 through stage 4 chronic kidney disease, or unspecified chronic kidney disease; E87.1 Hypo-osmolality and hyponatremia; G93.1 Anoxic brain damage, not elsewhere classified; I48.20 Chronic atrial fibrillation, unspecified; I69.351 Hemiplegia and hemiparesis following cerebral infarction affecting right dominant side; K92.2 Gastrointestinal hemorrhage, unspecified; N17.9 Acute kidney failure, unspecified; I42.8 Other cardiomyopathies; I46.9 Cardiac arrest, cause unspecified; D63.8 Anemia in other chronic diseases classified elsewhere; E03.9 Hypothyroidism, unspecified; E16.2 Hypoglycemia, unspecified; E78.5 Hyperlipidemia, unspecified; E87.5 Hyperkalemia; I25.10 Atherosclerotic heart disease of native coronary artery without angina pectoris; I25.5 Ischemic cardiomyopathy; I27.29 Other secondary pulmonary hypertension; I48.0 Paroxysmal atrial fibrillation; I73.9 Peripheral vascular disease, unspecified; J44.9 Chronic obstructive pulmonary disease, unspecified; K57.30 Diverticulosis of large intestine without perforation or abscess without bleeding; N18.9 Chronic kidney disease, unspecified; N40.0 Benign prostatic hyperplasia without lower urinary tract symptoms; K21.9 Gastro-esophageal reflux disease without esophagitis; K57.90 Diverticulosis of intestine, part unspecified, without perforation or abscess without bleeding; M19.90 Unspecified osteoarthritis, unspecified site; D69.6 Thrombocytopenia, unspecified; E87.6 Hypokalemia; Z66 Do not resuscitate; Z82.5 Family history of asthma and other chronic lower respiratory diseases; Z87.01 Personal history of pneumonia (recurrent); Z87.891 Personal history of nicotine dependence; Z90.49 Acquired absence of other specified parts of digestive tract; Z91.19 Patient's noncompliance with other medical treatment and regimen; Z95.5 Presence of coronary angioplasty implant and graft; I25.2 Old myocardial infarction
CPT/HCPCS: 36415; 36600; 70450; 71045; 76705; 80048; 80053; 80061; 80076; 81001; 82805; 82962; 83735; 83880; 84484; 85025; 85027; 87040; 87086; 93005; 93306; 93926; 94002; 94003; 94640; 94760; 95816; 96374; C9113; J0171; J0692; J1940; J2060; J2250; J2543; J2704; J3010; J3370; J3490; J7040; J7060; 99291-25; G0378; J7613